=== PATIENT | female | born 1950 | race Caucasian/White ===

== ENCOUNTER → 2016-05-11 | Outpatient (CLI) | payer OTHER ==
[~2016-05-11] MED LIST: ALBU1NEB10 INH; ALBUAER19 INH; ATV/1 PO; FLUT230A INH; FOLI1TAB7 PO; METH2.5T PO; METO1TAB31 PO; MONT1TAB3 PO; MULT-884 PO; PTDOPS OPB; VGFVS/24 PV; [UNRECOGNIZED DRUG - CODE] NAE
--- NOTE | 2016-05-11 14:09 | MAMMOGRAPHY REPORT ---
UNILATERAL RIGHT DIGITAL DIAGNOSTIC MAMMOGRAM TOMOSYNTHESIS AND TARGETED RIGHT ULTRASOUND: 05/11/2016 CLINICAL HISTORY: Callback from screening mammogram for right breast asymmetry. When talking with t latrell patient, she reports that she fell and hit the right breast a few weeks ago, and has a palpable l ump in the region. TECHNIQUE: Breast tomosynthesis in addition to standard 2D mammography was performed. Right CC and MLO 2-D and tomosynthesis spot compression views were obtained. COMPARISON: Comparison is made to exams dated: 05/02/2016 mammogram, 04/23/2014 mammogram, 04/29/2015 m ammogram, 03/04/2013 mammogram, 03/01/2012 mammogram, and 03/14/2011 mammogram - [facility]. BREAST COMPOSITION: There are scattered areas of fibroglandular density in the right breast. FINDINGS: Spot compression views of the right breast demonstrate multiple round circumscribed fat de nsity masses in association with an asymmetry in the right 12:00 to 1:00 breast. The fat density ma sses are consistent with benign oil cysts related to fat necrosis. Targeted ultrasound was performed of the right 12 to 1:00 breast in the region of the mammographic f indings. The patient also reports that she has a palpable lump in this region. On clinical exam, b ruising is noted of the breast in this region. On ultrasound, there are multiple circumscribed roun d/oval anechoic masses in association with areas of ill-defined hyperechoic tissue. This has the so nographic appearance of fat necrosis, and corresponds with the mammographic findings. The patient r eports a fall in which she injured her right breast a few weeks ago. Given the clinical history and given the imaging findings, findings are benign and compatible with fat necrosis. IMPRESSION: ACR BI-RADS CATEGORY 2: BENIGN, TARGETED ULTRASOUND ACR BI-RADS CATEGORY 2: BENIGN Findings compatible with fat necrosis with oil cysts in the right 1:00 breast, which corresponds wit h the palpable lump and accounts for the mammographic asymmetry. This is likely secondary to a rece nt fall in which the patient injured her right breast. There is no mammographic or targeted sonographic evidence of malignancy. Recommend clinical follow- up for the palpable lump, and recommend routine bilateral screening mammograms in one year. The [facility] ient has been verbally notified of the results. Approximately 10% of breast cancers are not detected with mammography. A negative mammographic repor t should not delay biopsy if a clinically suggestive mass is present. Marie Avery M.D. ah/:05/11/2016 13:35:58 Flight Readiness Technician: [place] ALFARO)(Nayely), [facility] letter sent: Normal 1/2 BI-RADS Code: ACR BI-RADS Category 2: Benign Ultrasound BI-RADS: ACR BI-RADS Category 2: Benign
== END | disposition home or self-care (01) ==
LOC: C.MAMM 12:47
PROVIDERS: ATTEND Family Medicine
DX: N64.89 Other specified disorders of breast (principal); N60.01 Solitary cyst of right breast

== ENCOUNTER → 2016-05-30 | Outpatient (CLI) | payer OTHER ==
[2016-05-30 17:28] LABS: BASO % 0.3 %; BASO ABS # 0.02 K/uL (0-0.2); COMPLETE YES; EOS % 1.7 %; HEMATOCRIT 41.3 % (37-47); IG% 0.3 %; LYMPH % 20.1 %; LYMPH ABS # 1.46 K/uL (1.2-3.4); MEAN CELL VOLUME 88.8 fL (80-100); MEAN CORPUSCULAR HEMOGLOBIN 29.7 pg (25-34); MEAN CORPUSCULAR HGB CONC 33.4 g/dl (32-36); MEAN PLATELET VOLUME 9.5 fL (7.4-10.4); MONO % 9.8 %; NEUT % 67.8 %; PLATELET COUNT 277 K/uL (130-400); RED BLOOD COUNT 4.65 M/uL (4.2-5.4); WHITE BLOOD COUNT 7.26 K/uL (4.8-10.8)
[2016-05-30 17:49] LABS: BLOOD UREA NITROGEN 14 mg/dl (7-18); BUN/CREATININE RATIO 15.1 (10-20); CALCIUM 9.1 mg/dl (8.5-10.1); CARBON DIOXIDE 29 mmol/L (21-32); CHLORIDE 105 mmol/L (98-107); CREATININE 0.94 mg/dl (0.60-1.20); GLUCOSE 96 mg/dl (70-99); POTASSIUM 4.3 mmol/L (3.5-5.1); SODIUM 143 mmol/L (136-145)
== END | disposition home or self-care (01) ==
LOC: C.LABBFT 12:33
PROVIDERS: ATTEND Nurse Practitioner
DX: R05 Cough (principal); Z11.59 Encounter for screening for other viral diseases

== ENCOUNTER → 2016-05-30 | Outpatient (CLI) | payer OTHER ==
--- NOTE | 2016-05-30 15:34 | DIAGNOSTIC IMAGING REPORT ---
CHEST 2 VIEWS ROUTINE HISTORY: COUGH COMPARISON: Chest 09/05/2014. FINDINGS: Cervical spinal fusion hardware is again noted. No pleural effusions. No pneumothorax. The heart is normal in size. A few linear densities at the left lung base persist and favor subsegmental atelectasis or scarring. No new focal lung consolidations to suggest pneumonia. IMPRESSION: No acute process. Electronically signed by: Jordy Spence M.D. 05/30/2016 3:32 PM Dictated Date/Time: 05/30/2016 3:30 PM
== END | disposition home or self-care (01) ==
LOC: C.RAD1850 14:55
PROVIDERS: ATTEND Nurse Practitioner
DX: R05 Cough (principal)

== ENCOUNTER → 2017-01-23 | Outpatient (CLI) | payer OTHER ==
--- NOTE | 2017-01-23 14:16 | MAMMOGRAPHY REPORT ---
UNILATERAL LEFT DIGITAL DIAGNOSTIC MAMMOGRAM TOMOSYNTHESIS WITH CAD AND TARGETED LEFT ULTRASOUND: 01/23/2017 CLINICAL HISTORY: 66-year-old woman presents after her physician palpated a lump in the 12:00 left br east, 1 cm from the nipple. The patient is also reporting focal pain in the 2:00 axis of the left br east, 7 cm from the nipple. TECHNIQUE: Left breast tomosynthesis in addition to standard 2D mammography was performed. Current st udy was also evaluated with a Computer Aided Detection (CAD) system. COMPARISON: Comparison is made to exams dated: 05/02/2016 mammogram, 04/29/2015 mammogram, 04/23/2014 ma mmogram, 03/04/2013 mammogram, 03/01/2012 mammogram, and 03/09/2010 mammogram - [facility]. BREAST COMPOSITION: The tissue of the left breast is almost entirely fatty. FINDINGS: A triangular palpable marker was placed on the skin of the 2:00 left breast, denoting the a kiki of pain pointed out by the patient. Based on physician order, a lump was palpated in the 12:00 l eft breast, 1 cm from the areola. There is a stable 6 mm intramammary lymph node in the upper outer posterior left breast, that is unchanged in size and appearance dating back to at least 03/05/2009, t herefore likely benign. No other new suspicious mass, focal area of architectural distortion, asymme try or microcalcifications are identified in the left breast. Targeted ultrasound was performed in the area of pain pointed out by the patient, within the 2:00 lef t breast, 7 cm from the nipple, and also in the area of lump described by the patient's provider, wit hin the 12:00 axis, 1 cm from the areola. In the area of pain in the 2:00 axis, sonographically norm al tissue is seen without a discrete solid or cystic mass. Likewise, in the 12:00 axis, sonographica lly normal tissue is seen without a suspicious solid or cystic mass. IMPRESSION: ACR BI-RADS CATEGORY 2: BENIGN, TARGETED ULTRASOUND ACR BI-RADS CATEGORY 2: BENIGN 1. There is no suspicious mammographic or targeted sonographic mass or other abnormality in the 2:00 left breast in an area of pain, or within the 12:00 left breast in an area of lump felt by the patie nt's provider. Therefore, clinical follow-up is recommended, as biopsy of a clinically suspicious ma ss should not be precluded by negative imaging. 2. Overall, stable mammographic appearance of the left breast. The patient is due for annual bilate ral screening mammography in April 2017. These results and recommendations were discussed with the patient at the time of the exam. Approximately 10% of breast cancers are not detected with mammography. A negative mammographic report should not delay biopsy if a clinically suggestive mass is present. Ashley Marroquin M.D. ay/:01/23/2017 12:36:02 Soil Scientist: [place] ALFARO)(Nayely), [facility] letter sent: Normal 1/2 BI-RADS Code: ACR BI-RADS Category 2: Benign Ultrasound BI-RADS: ACR BI-RADS Category 2: Benign
== END | disposition home or self-care (01) ==
LOC: C.MAMM 10:40
PROVIDERS: ATTEND Physician Assistant
DX: N63.20 Unspecified lump in the left breast, unspecified quadrant (principal); R92.2 Inconclusive mammogram

== ENCOUNTER → 2017-05-04 | Outpatient (CLI) | payer OTHER | END | disposition home or self-care (01) | LOC: C.MAMM 08:39 | DX: Z12.31 Encounter for screening mammogram for malignant neoplasm of breast (principal) ==

== ENCOUNTER 2021-12-05 21:11 | Inpatient (IN) ==
[2021-12-05] MEDS ORDERED: SODIUM CHLORIDE 0.9% 500 ML IV STA (21:17)
[2021-12-05 22:02] LABS: Basophils # (auto) 0.03 K/uL (0-0.2); Basophils % (auto) 0.3 %; Eosinophils # (auto) 0.07 K/uL (0-0.50); Eosinophils % (auto) 0.7 %; Hemoglobin 10.8 g/dl (12.0-16.0); Immature Granulocytes # (auto) 0.06 K/uL (0.00-0.02); Immature Granulocytes % (auto) 0.6 %; Lymphocytes # (auto) 0.93 K/uL (1.2-3.4); Lymphocytes % (auto) 9.4 %; Mean Corpuscular Hemoglobin 28.2 pg (25.0-34.0); Mean Corpuscular Hgb Conc 31.8 g/dL (32.0-36.0); Mean Corpuscular Volume 88.8 fL (80.0-100.0); Mean Platelet Volume 8.4 fL (9.4-12.3); Monocytes # (auto) 0.91 K/uL (0.24-0.82); Monocytes % (auto) 9.2 %; Neutrophils # (auto) 7.85 K/uL (1.4-6.5); Neutrophils % (auto) 79.8 %; Platelet Count 335 K/uL (130-400); RDW Coefficient of Variation 12.9 % (11.5-14.5); RDW Standard Deviation 41.6 fL (36.4-46.3); Red Blood Count 3.83 M/uL (3.93-5.22); White Blood Count 9.85 K/ul (4.8-10.8)
[2021-12-05 22:22] LABS: Albumin Level 3.9 gm/dl (3.4-5.0); BUN Creatinine Ratio 11.6 (10-20); Bilirubin,Total 0.4 mg/dl (0.2-1.0); Calcium 8.8 mg/dl (8.5-10.1); Creatinine Clr Calc Pharmacy 20.3 ml/min; Est GFR (African American) 20.1 ml/min; Est GFR (Non-African American) 17.3 ml/min; Potassium 4.3 mmol/L (3.5-5.1); Total Protein 7.9 gm/dl (6.0-8.3)
[2021-12-05] MEDS ORDERED: ONDANSETRON INJ 2 MG/ML 2 ML VIAL IV STA (23:03)
[2021-12-05] MEDS ORDERED: MoRPHine SULFATE 4 MG/ML 1 ML CARP\\VIAL IV STA (23:03)
[2021-12-05] MEDS ORDERED: SODIUM CHLORIDE 0.9% 1000ML 1,000 ML IV ONE (23:03)
--- NOTE | 2021-12-05 23:04 | Emergency Department Note ---
Impression & Plan Kidney stone DC ED Provider Note HPI: The patient is a 71-year-old female who presents emergency department chief complaint of right flank pain and nausea that is been ongoing since earlier today. Patient states that she also has recently had a urinary tract infection for which she completed 2 courses of antibiotics. Patient does have a history of an acquired solitary kidney, on arrival here to the ED the patient is mildly hypertensive but otherwise hemodynamically stable, she is saturating well on room air on arrival, she is afebrile. Patient states she did have 1 episode of vomiting today, she denies any diarrhea. Patient denies any chest pain or shortness of breath. ROS: -: Right flank pain *10 point review systems was conducted and is otherwise negative unless stated above *Outpatient medications and allergy history reviewed PE: General: Alert, NAD HEENT: Normocephalic, atraumatic Eyes: Extraocular eye movement is intact, no scleral erythema Pulmonary: Clear to auscultation bilaterally, no wheezing Cardio: Regular rate and rhythm GI: Abdomen is soft, nontender : No suprapubic tenderness, there is right flank tenderness to palpation MSK: No evidence of trauma or malformation of the extremities, no edema Skin: No evidence of rash Neuro: Alert, no focal deficits 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 Minimal bilateral lower lobe atelectasis. Normal cardiac size. Diffuse fatty liver. Unremarkable gallbladder and biliary system. Gross, spleen and bilateral adrenal glands. Mild hiatal hernia otherwise unremarkable stomach. Status post left nephrectomy. Severe right-sided hydronephrosis due to a large stone at the right UP junction measuring 18.4 mm. Right perinephric stranding. Mild atherosclerotic disease of aorta with no aneurysm. Moderate fecal debris within the colon. Nonvisualized appendix. No inflammation to suggest appendicitis. No bowel obstruction. Decompressed urinary bladder. Anteverted uterus. Multilevel degenerative disease of the spine with multilevel vacuum phenomenon. Radiologist: Shae Salgado MD Medical Decision Making: Patient presented to the emergency department chief complaint of right flank tenderness and right-sided abdominal pain, CT imaging of the abdomen pelvis shows evidence of severe right-sided hydronephrosis secondary to a large obstructing kidney stone at the right UP junction measuring 18 mm. There is ri ght perinephric stranding as well. Patient has a creatinine elevation to 2.68, she was unable to provide a urine sample that urinalysis could be run off of the urine culture was able to be sent. Given that the patient has a solitary kidney on the right side, she will require admission and likely stenting. I discussed this with on-call urology, Dr. Barragan, who recommended treating prophylactically with ceftriaxone, blood cultures were also obtained prior to this. Dr. Barragan will take the patient for urologic intervention and likely stenting in the morning given her hemodynamic stability. On my reassessment the patient remains hemodynamically stable, she is not tachycardic, she is afebrile, she states her pain is improved following morphine. She remained otherwise hemodynamically stable and well-appearing on my reassessment and she was admitted in stable condition to the hospitalist service following my discussion with the on-call hospitalist, Dr. Veliz. Patient was admitted in stable condition for further care and urology consultation. Diagnosis: 1. Kidney stone, right-sided, with hydronephrosis 2. Acute kidney injury 3. Acute abdominal pain 4. Nausea Disposition: Admission David Tejeda DO Emergency Medicine Past Med/Surg History Medical History Right knee DJD Social History Smoking Status: Never smoker Feels Safe at Home: Yes Allergies Allergies Allergy/AdvReac Type Severity Reaction Status Date / Time No Known Allergies Allergy Unknown Verified 04/15/15 09:59 Home Meds Home Medications Medication Instructions Recorded Confirmed ALBUTEROL SULF (Albuterol Sulfate 3 ml inhalation Q4 PRN Wheezing ##0 09/05/14 0.083% For Inh) Albuterol Inhaler (VENTOLIN 2 puff inhalation Q4 PRN 09/05/14 INHALER) cough,whz,sob #5 Inhalers Estradiol (Vagifem) 10 mg vaginal WK ##0 09/05/14 FLUTICASONE-SALMETEROL 230/21 MCG 2 puff inhalation BID PRN unk ##0 09/05/14 (ADVAIR HFA 230/21 MCG) FOLIC ACID (FOLVITE) 1 mg PO DAILY #0 tabs 09/05/14 LORAZEPAM (ATIVAN) 1 mg PO HS PRN Sleep #0 tabs 09/05/14 METOPROLOL SUCCINATE (TOPROL XL) 12.5 mg PO HS #30 tabs 09/05/14 MONTELUKAST SODIUM (SINGULAIR) 10 mg PO HS #0 tabs 09/05/14 Methotrexate 15 mg PO WK #0 tabs 09/05/14 Multiple Vitamin (Multi Vitamin 1 tab PO DAILY ##0 09/05/14 Daily) OLOPATADINE HYDROCHLORIDE (PATADAY) 1 drp OPB DAILY PRN ALLERGIC 09/05/14 REACTION ##0 SALINE (SM NASAL SPRAY SALINE) 1 dose VLADISLAV DAILYBB ##0 09/05/14 Previous Rx's Medication Instructions Recorded methylprednisolone 4 mg tablets in 4 mg PO UD #1 packet 03/08/21 a dose pack Results & Data (ED) Vital Signs Vital Signs - 24 hr 12/05/21 21:15 12/05/21 22:45 12/06/21 00:31 Temperature 36.5 C Temperature Source Temporal Artery Scan Pulse Rate 66 Pulse Rate [Right Finger] 66 Pulse Strength [Right Finger] Normal Respiratory Rate 16 16 18 Respiratory Effort / Characteristics Non-Labored Spontaneous Non-Labored Non-Labored Spontaneous Respiratory Depth Normal Normal Normal Respiratory Pattern Regular Blood Pressure 127/70 Blood Pressure [Right Arm] 159/73 H 119/51 L Blood Pressure Mean 89 Blood Pressure Mean [Right Arm] 101 73 Blood Pressure Position [Right Arm] Lying Lying Pulse Oximetry 96 95 93 Oxygen Delivery Method Room Air Room Air Room Air Sepsis Recent Fever Within 48 Hours No Sepsis New/Unexplained Change in Mental Status No Sepsis Action Taken by Nursing No Action Required Laboratory Data Result diagrams: 12/05/21 21:51 12/05/21 21:51 Lab Results 12/05/21 12/05/21 12/05/21 Range/Units 21:51 21:51 Unknown WBC 9.85 (4.8-10.8) K/ul RBC 3.83 L (3.93-5.22) M/uL Hgb 10.8 L (12.0-16.0) g/dl Hct 34.0 L (34.1-44.9) % MCV 88.8 (80.0-100.0) fL MCH 28.2 (25.0-34.0) pg MCHC 31.8 L (32.0-36.0) g/dL RDW Std Deviation 41.6 (36.4-46.3) fL RDW Coeff of [place] 12.9 (11.5-14.5) % Plt Count 335 (130-400) K/uL MPV 8.4 L (9.4-12.3) fL Immature Gran % (Auto) 0.6 % Neut % (Auto) 79.8 % Lymph % (Auto) 9.4 % [place] % (Auto) 9.2 % Eos % (Auto) 0.7 % Baso % (Auto) 0.3 % Neut # (Auto) 7.85 H (1.4-6.5) K/uL Lymph # (Auto) 0.93 L (1.2-3.4) K/uL [place] # (Auto) 0.91 H (0.24-0.82) K/uL Eos # (Auto) 0.07 (0-0.50) K/uL Baso # (Auto) 0.03 (0-0.2) K/uL Immature Gran # (Auto) 0.06 H (0.00-0.02) K/uL Sodium 134 L (136-145) mmol/L Potassium 4.3 (3.5-5.1) mmol/L Chloride 102 (98-107) mmol/L Carbon Dioxide 23 (21-32) mmol/L Anion Gap 9 (3-11) BUN 31 H (6-23) mg/dl Creatinine 2.68 H (0.6-1.2) mg/dl Est Cr Clr Drug Dosing 20.3 ml/min Est GFR ( Amer) 20.1 ml/min Est GFR (Non-Af Amer) 17.3 ml/min BUN/Creatinine Ratio 11.6 (10-20) Glucose 126 H (70-99(Fasting)) mg/dl Calcium 8.8 (8.5-10.1) mg/dl Total Bilirubin 0.4 (0.2-1.0) mg/dl AST 21 (13-39) U/L ALT 25 (7-52) U/L Alkaline Phosphatase 80 (34-104) U/L Total Protein 7.9 (6.0-8.3) gm/dl Albumin 3.9 (3.4-5.0) gm/dl Globulin 4.0 (2.5-4.0) gm/dl Albumin/Globulin Ratio 1.0 (0.9-2) Urine Color Cancelled Urine Appearance Cancelled Urine pH Cancelled Ur Specific [place] Cancelled Urine Protein Cancelled Urine Glucose (UA) Cancelled Urine Ketones Cancelled Urine Blood Cancelled Urine Nitrite Cancelled Urine Bilirubin Cancelled Urine Urobilinogen Cancelled Ur Leukocyte Esterase Cancelled Urine WBC (Auto) Cancelled Urine RBC (Auto) Cancelled U Hyaline Cast (Auto) Cancelled U Epithel Cells (Auto) Cancelled Urine Bacteria (Auto) Cancelled Ur Renal Epithelial Cell Cancelled Urine Crystals Cancelled Calcium Oxalate Crystal Cancelled Uric Acid Crystals Cancelled Triple Phos Crystals Cancelled Other Crystals Cancelled Amorphous Sediment Cancelled Granular Casts Cancelled Waxy Casts Cancelled RBC Casts Cancelled WBC Casts Cancelled Other Casts Cancelled Urine Mucus Cancelled Urine Other Cancelled Urine Trichomonas Cancelled Urine Yeast Cancelled Urine Sperm Cancelled Ur Oval Fat Bodies Cancelled SARS-CoV-2, RNA, NAAT (NEGATIVE) 12/06/21 Range/Units 01:00 WBC (4.8-10.8) K/ul RBC (3.93-5.22) M/uL Hgb (12.0-16.0) g/dl Hct (34.1-44.9) % MCV (80.0-100.0) fL MCH (25.0-34.0) pg MCHC (32.0-36.0) g/dL RDW Std Deviation (36.4-46.3) fL RDW Coeff of [place] (11.5-14.5) % Plt Count (130-400) K/uL MPV (9.4-12.3) fL Immature Gran % (Auto) % Neut % (Auto) % Lymph % (Auto) % [place] % (Auto) % Eos % (Auto) % Baso % (Auto) % Neut # (Auto) (1.4-6.5) K/uL Lymph # (Auto) (1.2-3.4) K/uL [place] # (Auto) (0.24-0.82) K/uL Eos # (Auto) (0-0.50) K/uL Baso # (Auto) (0-0.2) K/uL Immature Gran # (Auto) (0.00-0.02) K/uL Sodium (136-145) mmol/L Potassium (3.5-5.1) mmol/L Chloride (98-107) mmol/L Carbon Dioxide (21-32) mmol/L Anion Gap (3-11) BUN (6-23) mg/dl Creatinine (0.6-1.2) mg/dl Est Cr Clr Drug Dosing ml/min Est GFR ( Amer) ml/min Est GFR (Non-Af Amer) ml/min BUN/Creatinine Ratio (10-20) Glucose (70-99(Fasting)) mg/dl Calcium (8.5-10.1) mg/dl Total Bilirubin (0.2-1.0) mg/dl AST (13-39) U/L ALT (7-52) U/L Alkaline Phosphatase (34-104) U/L Total Protein (6.0-8.3) gm/dl Albumin (3.4-5.0) gm/dl Globulin (2.5-4.0) gm/dl Albumin/Globulin Ratio (0.9-2) Urine Color Urine Appearance Urine pH Ur Specific [place] Urine Protein Urine Glucose (UA) Urine Ketones Urine Blood Urine Nitrite Urine Bilirubin Urine Urobilinogen Ur Leukocyte Esterase Urine WBC (Auto) Urine RBC (Auto) U Hyaline Cast (Auto) U Epithel Cells (Auto) Urine Bacteria (Auto) Ur Renal Epithelial Cell Urine Crystals Calcium Oxalate Crystal Uric Acid Crystals Triple Phos Crystals Other Crystals Amorphous Sediment Granular Casts Waxy Casts RBC Casts WBC Casts Other Casts Urine Mucus Urine Other Urine Trichomonas Urine Yeast Urine Sperm Ur Oval Fat Bodies SARS-CoV-2, RNA, NAAT NEGATIVE (NEGATIVE) Administered Medications Discontinued Medications Sodium Chloride (Nss) 500 mls @ 999 mls/hr IV .Q31M STA Stop: 12/05/21 21:47 Last Infusion: 12/05/21 23:22 Dose: 0 mls/hr Documented By: Admin: 12/05/21 22:43 Dose: 999 mls/hr Documented By: LINSEY Sodium Chloride (Nss 1000ml) 1,000 mls @ 999 mls/hr IV .Q1H1M ONE Stop: 12/06/21 00:03 Last Infusion: 12/06/21 00:28 Dose: 0 mls/hr Documented By: Admin: 12/05/21 23:16 Dose: 999 mls/hr Documented By: LINSEY Morphine Sulfate (Morphine Sulfate 4 Mg/Ml 1 Ml Carp\Vial) 4 mg IV NOW STA Stop: 12/05/21 23:04 Last Admin: 12/05/21 23:15 Dose: 4 mg Documented By: LINSEY Morphine Sulfate (Morphine Sulfate 4 Mg/Ml 1 Ml Carp\Vial) 4 mg IV NOW STA Stop: 12/06/21 00:31 Last Admin: 12/06/21 00:36 Dose: 4 mg Documented By: LINSEY Ondansetron HCl (Ondansetron Inj 2 Mg/Ml 2 Ml Vial) 4 mg IV NOW STA Stop: 12/05/21 23:04 Last Admin: 12/05/21 23:15 Dose: 4 mg Documented By: LINSEY Discharge Plan Visit Data Chief Complaint: Urinary Symptoms Stated Complaint: UTI ED Provider: David Tejeda Discharge Problem: Kidney stone Patient Disposition: Admitted As Inpatient Forms Stand Alone Forms: [facility] Prescriptions Prescriptions: No Action ALBUTEROL SULF (Albuterol Sulfate 0.083% For Inh) 3 ML NEBULIZR-SOLN 3 ml Inhalation Q4 PRN (Reason: Wheezing) Qty: 0 Albuterol Inhaler (VENTOLIN INHALER) AEROSOL,SOLN 2 puff Inhalation Q4 PRN (Reason: cough,whz,sob) Qty: 5 Estradiol (Vagifem) 10 MCG tablet 10 mg Vaginal WK Qty: 0 FLUTICASONE-SALMETEROL 230/21 MCG (ADVAIR HFA 230/21 MCG) 1 AER AER 2 puff Inhalation BID PRN (Reason: unk) Qty: 0 FOLIC ACID (FOLVITE) 1 MG tablet 1 mg PO DAILY Qty: 0 LORAZEPAM (ATIVAN) 1 MG tablet 1 mg PO HS PRN (Reason: Sleep) Qty: 0 METOPROLOL SUCCINATE (TOPROL XL) 25 MG tablet 12.5 mg PO HS Qty: 30 MONTELUKAST SODIUM (SINGULAIR) 10 MG tablet 10 mg PO HS Qty: 0 Methotrexate 2.5 MG tablet 15 mg PO WK Qty: 0 Multiple Vitamin (Multi Vitamin Daily) 1 TAB tablet 1 tab PO DAILY Qty: 0 OLOPATADINE HYDROCHLORIDE (PATADAY) 37 DROPS/2.5 ML solution 1 drp OPB DAILY PRN (Reason: ALLERGIC REACTION) Qty: 0 SALINE (SM NASAL SPRAY SALINE) 0.65 % SPR 1 dose VLADISLAV DAILYBB Qty: 0 methylprednisolone 4 mg tablets,dose pack 4 mg PO UD Qty: 1 0RF Rx Instructions: Use as directed Referrals Referrals: Alex Ansari MD [Primary Care Provider] -
[2021-12-06] MEDS ORDERED: MoRPHine SULFATE 4 MG/ML 1 ML CARP\\VIAL IV STA (00:30)
[2021-12-06] MEDS ORDERED: cefTRIAXone SODIUM 1,000 MG/50 ML BAG IV STA (01:06)
[2021-12-06] MEDS ORDERED: ALBUT/IPRATROP 3MG/0.5MG NEB 3 ML VIAL NEB PRN (04:32)
[2021-12-06] MEDS ORDERED: POLYETHYLENE (MIRALAX) 17 GM PACK PO PRN (04:32)
[2021-12-06] MEDS ORDERED: ALPRAZolam 0.25 MG TABLET PO PRN (04:32)
[2021-12-06] MEDS ORDERED: ONDANSETRON INJ 2 MG/ML 2 ML VIAL IV PRN ×2 (04:32→11:43)
[2021-12-06] MEDS ORDERED: ACETAMINOPHEN 325 MG TAB PO PRN (04:32)
[2021-12-06] MEDS ORDERED: ALBUTEROL HFA 8 GM INHALER INH PRN (04:38)
[2021-12-06] MEDS ORDERED: SODIUM CHLORIDE 0.65% NA SOLN 45 ML (OCEAN) PRN (04:39)
[2021-12-06] MEDS: HYDROmorphone INJ 0.5 MG/0.5 ML SYR IV PRN ×4 (05:34→22:40)
[2021-12-06] MEDS: SODIUM CHLORIDE 0.9% 1000ML 1,000 ML IV SCH ×3 (06:31→21:02)
[2021-12-06 07:21] LABS: Basophils # (auto) 0.03 K/uL (0-0.2); Basophils % (auto) 0.3 %; Eosinophils # (auto) 0.03 K/uL (0-0.50); Eosinophils % (auto) 0.3 %; Hematocrit (blood only) 32.5 % (34.1-44.9); Immature Granulocytes # (auto) 0.04 K/uL (0.00-0.02); Immature Granulocytes % (auto) 0.4 %; Lymphocytes # (auto) 1.22 K/uL (1.2-3.4); Mean Corpuscular Hemoglobin 27.8 pg (25.0-34.0); Mean Corpuscular Hgb Conc 30.8 g/dL (32.0-36.0); Mean Corpuscular Volume 90.3 fL (80.0-100.0); Mean Platelet Volume 8.4 fL (9.4-12.3); Monocytes # (auto) 1.33 K/uL (0.24-0.82); Neutrophils # (auto) 8.47 K/uL (1.4-6.5); Platelet Count 283 K/uL (130-400); RDW Coefficient of Variation 13.1 % (11.5-14.5); RDW Standard Deviation 43.5 fL (36.4-46.3); White Blood Count 11.12 K/ul (4.8-10.8)
[2021-12-06 07:39] LABS: BUN Creatinine Ratio 10.1 (10-20); Calcium 7.8 mg/dl (8.5-10.1); Creatinine Clr Calc Pharmacy 16.1 ml/min; Est GFR (African American) 15.2 ml/min; Est GFR (Non-African American) 13.1 ml/min; Magnesium 1.8 mg/dl (1.7-2.4); Potassium 4.6 mmol/L (3.5-5.1)
[2021-12-06 08:24] LABS: Estimated Average Glucose 131 mg/dl; Hemoglobin A1C 6.2 % (4.5-5.6)
--- NOTE | 2021-12-06 08:27 | History and Physical Report ---
DATE OF ADMISSION: 12/06/2021. CHIEF COMPLAINT: Right renal colic. HISTORY OF PRESENT ILLNESS: This is a 71-year-old female with past medical history significant for prediabetes, allergic rhinitis, mild persistent asthma without complication, sleep apnea, nocturnal hypoxemia, GERD, left nephrectomy because of pyelonephritis at age 21, chronic kidney disease stage III, osteoarthrosis, restless legs syndrome, rheumatoid arthritis of multiple sites, history of ITP, history of depression, presents with ongoing right flank pain for the last 3 weeks. She had 2 courses of antibiotics, first course of Bactrim, but is not getting better and today her pain got severe, and while ambulating, she felt somewhat lightheaded and nauseous. She is having burning micturition. In ER found to have right UP junction kidney stone. No blurred visions, no earache, no runny nose, no sore throat, no cough, no chest pain, no shortness of breath. Normal bowel movements. Resting comfortably, hemodynamically stable. ALLERGIES: No known drug allergies. PAST MEDICAL HISTORY: As mentioned above. PAST SURGICAL HISTORY: Abdominal wall subcutaneous tumor removal in 2016, colonoscopy with biopsies, EGD, hysteroscopy, ligation of oviducts, lumbar hemilaminectomy, gastric emptying study, bladder tuck, removal of left kidney for complication of pyelonephritis at age 21, cataract surgeries, repair of arm tendon and muscle. MEDICATIONS: The patient is on albuterol 2 puffs inhalation q.4 hours p.r.n., Xanax 0.25 mg p.o. at bedtime p.r.n., Flonase 1 spray intranasally daily, levocetirizine 5 mg p.o. p.m., nasal spray p.r.n., omeprazole 20 mg p.o. daily, Systane 1 drop ophthalmic daily, Rinvoq 15 mg p.o. daily, Zoloft 100 mg p.o. daily. FAMILY HISTORY: Significant for aunt has lymphoma, mother has colon cancer, sister has breast cancer, uncle has lung cancer, maternal grandmother has diabetes, brother has brain aneurysm. SOCIAL HISTORY: Single. No smoking. Alcohol, 4 beers a month. No drug use. REVIEW OF SYSTEMS: As per HPI. Rest of the review of systems is negative. PHYSICAL EXAMINATION: GENERAL: The patient is of moderate build, not in acute distress. VITAL SIGNS: Temperature 36.5, pulse 66, respiratory rate 18, blood pressure 119/51, oxygen 93% on room air. HEENT: Pupils equal, round and reactive to light. Oral mucosa moist. NECK: No JVD, no neck masses. CARDIOVASCULAR: S1 and S2 heard. Regular rate and rhythm. No murmur, no gallop. RESPIRATORY SYSTEM: Normal AP diameter. No accessory muscle use. No wheezing, no crackles. ABDOMEN: Soft, bowel sounds present. Right CVA tenderness present. Mild discomfort in the right flank region and right lower abdomen. Mild guarding, no distention. CENTRAL NERVOUS SYSTEM: Cranial nerves II-XII grossly intact, nonfocal. EXTREMITIES: No edema, no erythema. LABORATORY DATA: WBC 9.8, hemoglobin 10.8, hematocrit 34, platelets 335. Sodium 134, potassium 4.3, chloride 102, bicarbonate 23, BUN 31, creatinine 2.6, serum glucose 126, calcium 8.8, total bilirubin 0.4, AST 21, ALT 25, alkaline phosphatase 80. SARS-CoV-2 rapid test negative. IMAGING: CT of abdomen and pelvis without contrast, preliminary report shows minimal bilateral lower lobe atelectasis. Normal cardiac size. Diffuse fatty liver, status post left nephrectomy, severe right-sided hydronephrosis due to a large stone in the right UP junction measuring 1.8 cm, right perinephric stranding. ASSESSMENT AND PLAN: This 71-year-old female presents with right renal colic. 1. Right renal colic: The patient has solitary kidney because of left nephrectomy from complication of pyelonephritis at the age of 21. Never had kidney stones. CAT scan showing a 1.8 cm right ureteropelvic junction stone. Keep her n.p.o., IV fluids, IV antiemetics, IV pain medication p.r.n., IV Rocephin. Urology was notified by the Emergency Room. We will keep n.p.o. until seen by urology. Closely monitor in the medical floor. 2. Acute kidney injury on chronic kidney disease stage III: Baseline creatinine in July was 1.2, recently on 11/18/2021 was 1.6, currently creatinine of 2.6, probably from above. Avoid nephrotoxic agents. Follow the repeat laboratories. 3. History of rheumatoid arthritis: We will hold Rinvoq. 4. History of depression: Continue Zoloft. 5. Gastroesophageal reflux disease: Continue omeprazole. 6. History of asthma: Continue home inhalers. 7. Anxiety: She is on Xanax p.r.n. 8. Prediabetes: We will follow HbA1c levels. Currently n.p.o. 9. Deep venous thrombosis prophylaxis: Sequential compression devices. DISPOSITION: Closely monitor in the medical floor. PT, OT prior to discharge. Social service to help with discharge planning. Job ID: [id number] JOHN PAUL
--- NOTE | 2021-12-06 08:27 | CT Scan Report ---
CT SCAN OF THE ABDOMEN AND PELVIS WITHOUT IV CONTRAST CLINICAL HISTORY: Right flank pain COMPARISON STUDY: Abdominal CT dated 01/03/2015. TECHNIQUE: CT scan of the abdomen and pelvis is performed from the lung bases to the proximal femora. Images are reviewed in the axial, sagittal, and coronal planes. IV contrast was not administered for this examination. A dose lowering technique was utilized adhering to the principles of ALARA. CT DOSE: 1477.95 mGy.cm FINDINGS: Lung bases: The heart is top normal in size and without pericardial effusion. There are coronary luca ry calcifications. A 4 mm pulmonary nodule in the right middle lobe seen on image #18 has been presen t dating back to 2014, as have a 5 mm pleural-based nodule the right lung base on image #60 and a 4 m m pleural-based nodule in the right lower lobe on image #29. The lung bases are otherwise clear notin g bibasilar scarring/atelectasis. There is a small hiatal hernia. Liver: The unenhanced liver is top normal in size and demonstrates diffusely diminished attenuation i ndicating steatosis. Fatty sparing is seen adjacent to gallbladder fossa. There is no intrahepatic bi liary ductal dilatation. Gallbladder: Unremarkable. Spleen: Normal in size and attenuation. Pancreas: Unremarkable. Adrenal glands: Unremarkable. Kidneys: The left kidney is surgically absent. The right kidney is normal in size. There is moderate to severe right-sided hydronephrosis secondary to a 2 cm calculus at the right ureteropelvic junction . This is seen image #202. There is associated right-sided perinephric stranding and trace fluid. No additional right renal or ureteral calculi are seen. There is no evidence of contour deforming renal mass lesion. Abdominal vasculature: The abdominal aorta is normal in course and caliber noting mild atheroscleroti c calcification. Bowel: There is moderate colonic diverticulosis without CT evidence of acute diverticulitis. No bowel obstruction is identified. Mild to moderate fecal retention is noted in the right colon. The appendi x is well-visualized and normal. Peritoneum: There is no intraperitoneal free air or abdominal ascites. There is a fat-containing umbi lical hernia. Lymphadenopathy: None. Pelvic viscera: The bladder is decompressed and grossly unremarkable. The uterus and adnexa are nicky l as visualized. There are bilateral fat-containing groin hernias. Skeletal structures: The skeletal structures are osteopenic. There is mild to moderate lumbosacral sp ondylosis. No lytic or blastic lesions are seen. IMPRESSION: 1. There is a 2 cm obstructing calculus at the right ureteropelvic junction. This causes moderate to severe right-sided hydronephrosis. 2. No additional right renal calculi are identified. 3. The left kidney is surgically absent. 4. Colonic diverticulosis without CT evidence of acute diverticulitis. 5. Hepatic steatosis. 6. Additional findings as above. ACT 112: Negative or not required by law. Electronically signed by: Jhon Malhotra M.D. 12/06/2021 8:26 AM
--- NOTE | 2021-12-06 09:17 | Urology Consultation ---
Date of Consultation December 06, 2021 Assessment & Plan (1) Right ureteral calculus: (2) Hydronephrosis, right: (3) Solitary kidney, acquired: (4) Renal colic: Plan 71yo F who is mononephric admitted with a 2cm right UPJ stone causing moderate- severe hydronephrosis. -Afebrile and hemodynamically stable. -Labs reviewed - WBC 11.12, Creatinine 3.38 (2.68 yesterday). -Urine and blood cultures pending. -Given she is mononephric with NEGRO on CKD, anuric, and intractable right flank pain, will proceed to the OR today for cystoscopy, right retrograde pyelogram, right ureteral stent placement. -Risks and benefits to be reviewed with patient by Dr. Yousif. OR notified. COVID test negative. Covered with scheduled IV ceftriaxone. -Keep NPO. -Continue supportive care and pain management. -Urology will follow. Attending note: Independently assessed, examined, interviewed, and evaluated. Agree with above. Discussed options including different intervention. Patient is solitary kidney. Had previously had nephrectomy on left side in her 20s due to recurrent issues. Patient has a very large obstructing UPJ stone approximately 2 cm in size with considerable hydronephrosis. Patient has had minimal urine production and concern for development of anuria. Has significant NEGRO. Patient also having some mild hypotension. Reviewed extensively patient's labs and vitals. Patient's complicated medical and surgical history was reviewed and summarized above. All imaging has been reviewed interpreted by myself. Severe obstruction issues. Patient has chronic issues with lupus as well as other medical issues. Is on a number of medications. We will plan to continue to monitor closely. Patient will likely need to be observed postoperatively for return of renal function. May have significant diuresis afterwards. We will plan to continue to follow. Risks and benefits discussed at length for procedure. These include bleeding, infection, injury to surrounding tissues or organs, and risks associated with anesthesia. Patient states understanding and agrees to proceed. 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 Patient stated that she also has recently had a urinary tract infection for which she completed 2 courses of antibiotics. On arrival, she was afebrile, mildly hypertensive, but otherwise hemodynamically stable. White count was normal and creatinine wsa 2.68. A CT A/P was obtained and notable for a 2 cm obstructing calculus at the right UPJ causing moderate to severe right-sided hydronephrosis. CT abdomen pelvis IMPRESSION: 1. There is a 2 cm obstructing calculus at the right ureteropelvic junction. This causes moderate to severe right-sided hydronephrosis. 2. No additional right renal calculi are identified. 3. The left kidney is surgically absent. 4. Colonic diverticulosis without CT evidence of acute diverticulitis. 5. Hepatic steatosis. Patient examined at bedside in the ED. Awake, resting in bed on arrival. No acute distress. Still with right flank pain, managing with IV pain medication. Has been NPO. No fevers. Some nausea, no vomiting. States she has been unable to void. Per chart review, nursing bladder scan 200 mL this morning. Denies prior history of stones. Reports her daughter has had stones. States she is scheduled to see Nephrology in [place] mid-December. Allergies Allergy/AdvReac Type Severity Reaction Status Date / Time No Known Allergies Allergy Unknown Verified 04/15/15 09:59 Home Medications Medication Instructions Recorded Confirmed Type Nasal [place] (sodium chloride) 1 spray intranasal Q6 PRN Nasal 12/06/21 12/06/21 History Congestion Systane (propylene glycol) 1 drp OPB DAILY 12/06/21 12/06/21 History Zoloft 100 mg PO DAILY 12/06/21 12/06/21 History albuterol sulfate 2 puff inhalation Q4H PRN Cough 12/06/21 12/06/21 History alprazolam 0.25 mg tablet (Xanax) 0.25 mg PO HS PRN Anxiety 12/06/21 12/06/21 History fluticasone propionate 50 1 spray intranasal DAILY 12/06/21 12/06/21 History mcg/actuation nasal spray,suspension levocetirizine 5 mg tablet 5 mg PO PM 12/06/21 12/06/21 History omeprazole 20 mg capsule,delayed 20 mg PO DAILY 12/06/21 12/06/21 History release upadacitinib 15 mg tablet,extended 15 mg PO DAILY 12/06/21 12/06/21 History release 24 hr (Rinvoq) Patient History Medical History Right knee DJD Social History Smoking Status: Never smoker Second Hand Exposure: No; Do You Dip or Chew Tobacco: No; Tobacco Cessation Education Requested by Patient: No Hx Alcohol Use: No Hx Substance Use: No Preferred Language: Belarusian Communication Ability: Effective Statistician Required: No Beliefs That Will Affect Care: None Current Living Situation: Alone Other Information That Helps Us Care for You: No Feels Safe at Home: Yes Safety Concerns: Feels Safe At This Time Review of Systems Review of Systems: All systems reviewed & are unremarkable except as noted in HPI & below Physical Exam Constitutional: well developed and well nourished; no acute distress Eyes: PERRL, conjunctivae normal, anicteric sclerae ENMT: external ear and nose normal, oropharynx normal Neck: normal visual inspection Respiratory: normal respiratory effort and able to speak in complete sentences; no respiratory distress and no labored breathing Gastrointestinal (Abdomen): Inspection/Auscultation: abdomen normal to inspection Musculoskeletal: Head/Neck/Chest: normocephalic Skin: No visible rashes or lesions to exposed skin areas Neurologic: awake Psychiatric: Orientation: alert, oriented x 3 and cooperative Results & Data ([facility]) Vital Signs (Past 12 Hours) Vital Signs Temp Pulse Pulse Resp BP BP Pulse Ox 12/06/21 07:10 44 L 16 114/55 L 94 12/06/21 01:30 60 18 120/54 L 92 12/06/21 04:00 51 L 18 109/57 L 90 12/06/21 03:00 56 L 19 111/50 L 92 12/06/21 04:41 12/06/21 00:31 66 18 119/51 L 93 12/05/21 22:45 16 159/73 H 95 12/05/21 21:15 36.5 C 66 16 127/70 96 O2 Del Method 12/06/21 07:10 Room Air 12/06/21 01:30 Room Air 12/06/21 04:00 Room Air 12/06/21 03:00 Room Air 12/06/21 04:41 Room Air 12/06/21 00:31 Room Air 12/05/21 22:45 Room Air 12/05/21 21:15 Room Air PG Care Time/CCT Total # of Minutes Spent Total Time Spent with Patient: Total time spent is greater than 50% in coordination of care (as documented) at patient's floor/unit and/or counseling patient: Coding Level of Care Code 24539 Initial Inpt Care Lvl 2 Diagnoses Right ureteral calculus N20.1 Hydronephrosis, right N13.30 Solitary kidney, acquired Z90.5 Renal colic N23
--- NOTE | 2021-12-06 09:31 | Anesthesiology Consultation ---
Date of Service December 06, 2021 Assessment & Plan Chart Review Chart Review: Acceptable Risk for Surgery and Patient NOT seen in Pre Admission Testing History Surgery Operation Date: 12/06/21 12:40 Proposed Procedures p Cystoscopy Right Retrograde Pyelogram and Stent Placement - Joseph Waters MD Height/Weight Height: 5 ft 3 in Weight: 86 kg Allergies Allergy/AdvReac Type Severity Reaction Status Date / Time No Known Allergies Allergy Unknown Verified 04/15/15 09:59 Medications Home Medications Medication Instructions Recorded Confirmed Last Taken Nasal [place] (sodium chloride) 1 spray intranasal Q6 PRN Nasal 12/06/21 12/06/21 Unknown Congestion Systane (propylene glycol) 1 drp OPB DAILY 12/06/21 12/06/21 Unknown Zoloft 100 mg PO DAILY 12/06/21 12/06/21 Unknown albuterol sulfate 2 puff inhalation Q4H PRN Cough 12/06/21 12/06/21 Unknown alprazolam 0.25 mg tablet (Xanax) 0.25 mg PO HS PRN Anxiety 12/06/21 12/06/21 Unknown fluticasone propionate 50 1 spray intranasal DAILY 12/06/21 12/06/21 Unknown mcg/actuation nasal spray,suspension levocetirizine 5 mg tablet 5 mg PO PM 12/06/21 12/06/21 Unknown omeprazole 20 mg capsule,delayed 20 mg PO DAILY 12/06/21 12/06/21 Unknown release upadacitinib 15 mg tablet,extended 15 mg PO DAILY 12/06/21 12/06/21 Unknown release 24 hr (Rinvoq) Active Medications Generic Name Dose Route Start Last Admin Trade Name Freq PRN Reason Stop Dose Admin Hydromorphone HCl 0.5 mg 12/06/21 04:32 12/06/21 09:06 Hydromorphone Inj 0.5 Mg/0.5 Ml Syr IV 12/20/21 04:31 0.5 mg Q4H PRN Administration Pain Sodium Chloride 1,000 mls @ 125 mls/hr 12/06/21 04:32 12/06/21 06:31 Nss 1000ml IV 01/05/22 04:31 125 mls/hr .Q8H PAMELA Administration Past Medical History Medical History Right knee DJD Social History Smoking Status: Never smoker Do You Dip or Chew Tobacco: No Hx Alcohol Use: No Hx Substance Use: No Physical Exam Vital Signs Last Vital Signs Temp 37.0 C 12/06/21 09:11 Pulse 72 12/06/21 09:11 Resp 16 12/06/21 09:11 BP 115/51 L 12/06/21 09:11 Pulse Ox 96 12/06/21 09:11 O2 Del Method 12/06/21 09:11 O2 Flow Rate 2 12/06/21 09:11 Testing Laboratory Results 12/06/21 07:01 12/06/21 07:01 Hemoglobin A1c 6.2 % (4.5-5.6) H 12/06/21 07:01 Urine Color Cancelled 12/05/21 Unknown Urine Appearance Cancelled 12/05/21 Unknown Urine pH Cancelled 12/05/21 Unknown Ur Specific [place] Cancelled 12/05/21 Unknown Urine Protein Cancelled 12/05/21 Unknown Urine Glucose (UA) Cancelled 12/05/21 Unknown Urine Ketones Cancelled 12/05/21 Unknown Urine Nitrite Cancelled 12/05/21 Unknown Ur Leukocyte Esterase Cancelled 12/05/21 Unknown Urine WBC (Auto) Cancelled 12/05/21 Unknown Urine RBC (Auto) Cancelled 12/05/21 Unknown U Hyaline Cast (Auto) Cancelled 12/05/21 Unknown U Epithel Cells (Auto) Cancelled 12/05/21 Unknown Urine Bacteria (Auto) Cancelled 12/05/21 Unknown
[2021-12-06] MEDS: ARTIFICIAL TEARS OP SCH (10:01)
[2021-12-06] MEDS: PANTOprazole 40 MG TAB PO SCH (10:01)
[2021-12-06] MEDS: FLUTICASONE PROPIONATE NA SPR 16 GM BTL SCH (10:01)
[2021-12-06] MEDS: SERTRALINE HCL 100 MG TABLET PO SCH (10:03)
[2021-12-06] MEDS ORDERED: PROPOFOL IV EMULSION 10 MG/ML 20 ML VIAL IV ONE (11:11)
[2021-12-06] MEDS ORDERED: MIDAZOLAM HCL 1 MG/ML 2ML VIAL ONE (11:11)
[2021-12-06] MEDS ORDERED: fentaNYL citrate 100 MCG/2 ML VIAL ONE (11:12)
[2021-12-06] MEDS ORDERED: fentaNYL citrate 100 MCG/2 ML VIAL IV PRN (11:43)
[2021-12-06] MEDS ORDERED: HYDROmorphone INJ 2 MG/ML SYR/VIAL IV PRN (11:43)
[2021-12-06] MEDS ORDERED: ATROPINE SULFATE 0.1 MG/ML 10ML SYR IV PRN (11:43)
[2021-12-06] MEDS ORDERED: ePHEDrine sulfate 50 MG/ML AMP IV PRN (11:43)
[2021-12-06] MEDS ORDERED: ceFAZolin 2,000 MG/15 ML IV PUSH IV ONE (11:51)
[2021-12-06] MEDS ORDERED: ONDANSETRON INJ 2 MG/ML 2 ML VIAL ONE (12:14)
[2021-12-06] MEDS ORDERED: ePHEDrine sulfate 50 MG/ML AMP ONE (12:14)
--- NOTE | 2021-12-06 12:24 | Operative Report ---
PG Post Operative Report Pre & Post Diagnosis Obstructing Right UPJ Stone, Solitary Kidney, Anuria Same Operation Date: 12/06/21 12:40 <No data on this case meets the specified criteria> I identified the patient and participated in the time-out.: Yes Procedure Cystoscopy with right urine aspiration, retrograde pyelogram, and stent placement. Operation Date: 12/06/21 12:40 <No data on this case meets the specified criteria> Surgeon Nelson Yousif, II, DO Saddle Mechanic None Estimated Blood Loss 1 Findings Consistent with Post-Op Diagnosis Stent placed in good position. Severe obstruction by large UPJ stone on right. Specimens None Drains 6 Fr Multilength Right Anesthesia Type MAC Complications none Disposition Disposition: Recovery Room Indications Patient with obstruction. Risks and benefits discussed at length. Description of Procedure Patient was consented and brought back to the operating room. Patient was placed under anesthesia in the supine position and moved to the dorsal lithotomy position. Patient was prepped and draped in the regular sterile fashion. A time out was completed. A 30degree Cystoscope was placed into the bladder and the entire bladder was examined. The UO's were identified. The UO was cannulized with a catheter, urine was aspirated from the renal pelvis, and a retrograde pyelogram was completed. A wire was then placed. With the wire in place, a 6 Fr Double J stent was placed. It was confirmed with fluoroscopy. With the stent in place, the bladder was emptied. The scope was removed. An 16 fr Jimenez was placed with good drainage to allow for likely diuresis after obstruction of solitary kidney. The patient was cleaned, aroused from anesthesia, and transferred to the pacu in stable condition having tolerated the procedure well with no complications. I was present and participated in all aspects of the procedure. The patient will be monitored in the PACU until transferred. Plan to monitor overnight. Likely catheter out tomorrow morning. Maintain stent for approx 2-3 weeks and set up for stone treatment. I attest to the content of the Intraoperative Record and any orders documented therein. Any exceptions are noted below.
--- NOTE | 2021-12-06 12:49 | Anesthesiology Progress Note ---
Date of Service December 06, 2021 Anesthesia Post Procedure Vital Signs Vital Signs: Temp Pulse Pulse Resp BP BP Pulse Ox 12/06/21 11:37 36.8 C 90 18 117/59 L 95 12/06/21 09:11 37.0 C 72 16 115/51 L 96 12/06/21 07:10 44 L 16 114/55 L 94 12/06/21 01:30 60 18 120/54 L 92 12/06/21 04:00 51 L 18 109/57 L 90 12/06/21 03:00 56 L 19 111/50 L 92 12/06/21 04:41 12/06/21 00:31 66 18 119/51 L 93 12/05/21 22:45 16 159/73 H 95 12/05/21 21:15 36.5 C 66 16 127/70 96 O2 Del Method O2 Flow Rate 12/06/21 11:37 Room Air 12/06/21 09:11 Nasal Cannula 2 12/06/21 07:10 Room Air 12/06/21 01:30 Room Air 12/06/21 04:00 Room Air 12/06/21 03:00 Room Air 12/06/21 04:41 Room Air 12/06/21 00:31 Room Air 12/05/21 22:45 Room Air 12/05/21 21:15 Room Air Pain Intensity Abdomen: Pain Intensity: 7 Transfer of Care Handoff Completed per policy Notes Mental Status: alert / awake / arousable and participated in evaluation Patient Amnestic to Procedure: Yes Nausea / Vomiting: adequately controlled Pain: adequately controlled Airway Patency, RR, SpO2: stable & adequate BP & HR: stable & adequate Hydration State: stable & adequate Anesthetic Complications: no major complications apparent and Pt Satisfied with anesthetic care
[2021-12-06] MEDS ORDERED: DIATRIZOATE MEGLUMINE 30% 100ML VIAL INSTIL ONE (12:51)
--- NOTE | 2021-12-06 12:51 | Electrocardiogram Report ---
Test Reason : Blood Pressure : / mmHG Vent. Rate : 087 BPM Atrial Rate : 087 BPM P-R Int : 166 ms QRS Dur : 062 ms QT Int : 364 ms P-R-T Axes : 054 051 058 degrees QTc Int : 438 ms Sinus rhythm with frequent Premature ventricular complexes in a pattern of bigeminy Low voltage QRS Borderline ECG When compared with ECG of 05-SEP-2014 19:03, Premature ventricular complexes are now Present Confirmed by Jarod Sims ([id number]) on 12/06/2021 12:51:11 PM Referred By: REFERRED SELF Confirmed By:Jarod Sims
--- NOTE | 2021-12-06 13:46 | Fluoroscopy Report ---
INTRAOPERATIVE RADIOGRAPHS CLINICAL HISTORY: Right ureteral stent placement. Fluoroscopy time: 10 seconds. FINDINGS: 4 spot images of the right abdomen from a ureteral stent placement procedure are presented. The initial image shows a wire in the right ureter. On the second image this has been advanced to th e renal pelvis. Injected contrast shows hydronephrosis. A filling defect within the renal pelvis like ly corresponds to the known large UPJ stone. The final 2 images show the proximal and distal ends of a right ureteral stent in place. IMPRESSION: Intraoperative images from a right ureteral stent placement procedure as above. Electronically signed by: Jhon Malhotra M.D. 12/06/2021 1:44 PM
--- NOTE | 2021-12-06 15:29 | Hospitalist Progress Note ---
Date of Service December 06, 2021 Assessment & Plan (1) Renal colic: (2) Hydronephrosis, right: (3) Right ureteral calculus: (4) H/O unilateral nephrectomy: (5) Urinary tract infection: Plan Patient is a 71-year-old female with history of solitary right kidney ( Hx of left nephrectomy in her 20s), rheumatoid arthritis, depression, GERD presented to the ED with left-sided abdominal pain and decreased urinary frequency. She was found to have 2 cm ureteric stone in the ureteropelvic junction. She underwent cystoscopy with right urine aspiration, retropyelogram and stent placement on 12/06 by urology. 1) Right ureteric stone s/p Cystoscopy with stent placement on 12/06 2) Right sided hydronephrosis 3) Urinary tract infection 4) NEGRO, obstructive Presented with decreased urinary frequency and flank pain. Urinalysis tests WBC 1030, urine bacteria present CT abdomen2 cm obstructing calculus in right utero pelvic junction Creatinine up trended from 2.68 at admission to 3.38 WBC count 11 Plan; Continue ceftriaxone. We will follow-up on urine culture. -- Monitor output from Jimenez -- Continue IV hydration for now. Diet resumed after the procedure. - We will follow daily CBC and BMP. Chronic conditions: 3. History of rheumatoid arthritis: We will hold Rinvoq. 4. History of depression: Continue Zoloft. 5. Gastroesophageal reflux disease: Continue omeprazole. 6. History of asthma: Continue home inhalers. 7. Anxiety: She is on Xanax p.r.n. 8 Deep venous thrombosis prophylaxis: Sequential compression devices for now. will consider heparin if no further procedure. Admission and Anticipated Discharge Date Admission Date: December 06, 2021 Subjective Patient seen in the morning. She is comfortable; not in any acute distress. She continues to complain of mild right-sided abdominal pain. She says she has not passed urine since coming to the hospital Review of Systems Review of Systems: All systems reviewed & are unremarkable except as noted in Subjective Physical Exam Physical Exam: GENERAL: The patient is of moderate build, not in acute distress. HEENT: Pupils equal, round and reactive to light. Oral mucosa moist. NECK: No JVD, no neck masses. CARDIOVASCULAR: S1 and S2 heard. Regular rate and rhythm. No murmur, no gallop. RESPIRATORY SYSTEM: Normal AP diameter. No accessory muscle use. No wheezing, no crackles. ABDOMEN: Right CVA tenderness present. Tenderness present in Right lower abdomen. CENTRAL NERVOUS SYSTEM: Cranial nerves II-XII grossly intact, nonfocal. EXTREMITIES: No edema, no erythema. Results & Data Results & Data ([facility]) Vital Signs (Past 12 Hours) Vital Signs Temp Pulse Pulse Resp BP BP Pulse Ox 12/06/21 14:20 36.9 C 48 L 16 110/64 98 12/06/21 14:50 36.5 C 47 L 16 126/61 96 12/06/21 13:57 36.7 C 50 L 18 129/74 93 12/06/21 13:30 95 H 22 134/48 L 93 12/06/21 13:20 96 H 16 143/53 H 3 L 12/06/21 13:10 94 H 15 143/57 H 93 12/06/21 13:00 36.6 C 98 H 16 131/76 90 12/06/21 12:50 96 H 24 121/49 L 95 12/06/21 12:40 97 H 22 108/46 L 94 12/06/21 12:34 36.7 C 60 16 121/57 L 93 12/06/21 11:37 36.8 C 90 18 117/59 L 95 12/06/21 09:11 37.0 C 72 16 115/51 L 96 12/06/21 07:10 44 L 16 114/55 L 94 12/06/21 04:00 51 L 18 109/57 L 90 12/06/21 04:41 O2 Del Method O2 Flow Rate 12/06/21 14:20 2 12/06/21 14:50 Room Air 12/06/21 13:57 Nasal Cannula 2 12/06/21 13:30 Nasal Cannula 2 12/06/21 13:20 Nasal Cannula 2 12/06/21 13:10 Nasal Cannula 2 12/06/21 13:00 Room Air 12/06/21 12:50 Oxymask 4 12/06/21 12:40 Oxymask 6 12/06/21 12:34 Oxymask 6 12/06/21 11:37 Room Air 12/06/21 09:11 Nasal Cannula 2 12/06/21 07:10 Room Air 12/06/21 04:00 Room Air 12/06/21 04:41 Room Air Laboratory Results Abdomen/Pelvis CT 12/05/21 23:02 CT SCAN OF THE ABDOMEN AND PELVIS WITHOUT IV CONTRAST CLINICAL HISTORY: Right flank pain COMPARISON STUDY: Abdominal CT dated 01/03/2015. TECHNIQUE: CT scan of the abdomen and pelvis is performed from the lung bases to the proximal femora. Images are reviewed in the axial, sagittal, and coronal planes. IV contrast was not administered for this examination. A dose lowering technique was utilized adhering to the principles of ALARA. CT DOSE: 1477.95 mGy.cm FINDINGS: Lung bases: The heart is top normal in size and without pericardial effusion. There are coronary artery calcifications. A 4 mm pulmonary nodule in the right middle lobe seen on image #18 has been present dating back to 2014, as have a 5 mm pleural-based nodule the right lung base on image #60 and a 4 mm pleural- based nodule in the right lower lobe on image #29. The lung bases are otherwise clear noting bibasilar scarring/atelectasis. There is a small hiatal hernia. Liver: The unenhanced liver is top normal in size and demonstrates diffusely diminished attenuation indicating steatosis. Fatty sparing is seen adjacent to gallbladder fossa. There is no intrahepatic biliary ductal dilatation. Gallbladder: Unremarkable. Spleen: Normal in size and attenuation. Pancreas: Unremarkable. Adrenal glands: Unremarkable. Kidneys: The left kidney is surgically absent. The right kidney is normal in size. There is moderate to severe right-sided hydronephrosis secondary to a 2 cm calculus at the right ureteropelvic junction. This is seen image #202. There is associated right-sided perinephric stranding and trace fluid. No additional right renal or ureteral calculi are seen. There is no evidence of contour deforming renal mass lesion. Abdominal vasculature: The abdominal aorta is normal in course and caliber noting mild atherosclerotic calcification. Bowel: There is moderate colonic diverticulosis without CT evidence of acute diverticulitis. No bowel obstruction is identified. Mild to moderate fecal retention is noted in the right colon. The appendix is well-visualized and normal. Peritoneum: There is no intraperitoneal free air or abdominal ascites. There is a fat-containing umbilical hernia. Lymphadenopathy: None. Pelvic viscera: The bladder is decompressed and grossly unremarkable. The uterus and adnexa are normal as visualized. There are bilateral fat-containing groin hernias. Skeletal structures: The skeletal structures are osteopenic. There is mild to moderate lumbosacral spondylosis. No lytic or blastic lesions are seen. IMPRESSION: 1. There is a 2 cm obstructing calculus at the right ureteropelvic junction. This causes moderate to severe right-sided hydronephrosis. 2. No additional right renal calculi are identified. 3. The left kidney is surgically absent. 4. Colonic diverticulosis without CT evidence of acute diverticulitis. 5. Hepatic steatosis. 6. Additional findings as above. ACT 112: Negative or not required by law. Electronically signed by: Jhon Malhotra M.D. 12/06/2021 8:26 AM Retrograde Pyelogram 12/06/21 13:00 INTRAOPERATIVE RADIOGRAPHS CLINICAL HISTORY: Right ureteral stent placement. Fluoroscopy time: 10 seconds. FINDINGS: 4 spot images of the right abdomen from a ureteral stent placement procedure are presented. The initial image shows a wire in the right ureter. On the second image this has been advanced to the renal pelvis. Injected contrast shows hydronephrosis. A filling defect within the renal pelvis likely corresponds to the known large UPJ stone. The final 2 images show the proximal and distal ends of a right ureteral stent in place. IMPRESSION: Intraoperative images from a right ureteral stent placement procedure as above. Electronically signed by: Jhon Malhotra M.D. 12/06/2021 1:44 PM COVID-19 Results Results COVID-19 Adm Lab Results: RBC 3.60 M/uL (3.93-5.22) L 12/06/21 WBC 11.12 K/ul (4.8-10.8) H 12/06/21 Hgb 10.0 g/dl (12.0-16.0) L 12/06/21 Hct 32.5 % (34.1-44.9) L 12/06/21 Plt Count 283 K/uL (130-400) 12/06/21 Neutrophils (%) (Auto) 76.0 % 12/06/21 Lymphocytes (%) (Auto) 11.0 % 12/06/21 Monocytes # (Auto) 1.33 K/uL (0.24-0.82) H 12/06/21 Eosinophils # (Auto) 0.03 K/uL (0-0.50) 12/06/21 Immature Granulocyte % (Auto) 0.4 % 12/06/21 Neutrophils # (Auto) 8.47 K/uL (1.4-6.5) H 12/06/21 Lymphocytes # (Auto) 1.22 K/uL (1.2-3.4) 12/06/21 Monocytes # (Auto) 1.33 K/uL (0.24-0.82) H 12/06/21 Eosinophils # (Auto) 0.03 K/uL (0-0.50) 12/06/21 Basophils # (Auto) 0.03 K/uL (0-0.2) 12/06/21 Immature Granulocyte # (Auto) 0.04 K/uL (0.00-0.02) H 12/06 Na 135 mmol/L (136-145) L 12/06/21 K 4.6 mmol/L (3.5-5.1) 12/06/21 Cl 106 mmol/L (98-107) 12/06/21 CO2 22 mmol/L (21-32) 12/06/21 Anion Gap 7 (3-11) 12/06/21 BUN 34 mg/dl (6-23) H 12/06/21 Creatinine 3.38 mg/dl (0.6-1.2) H 12/06/21 BUN/Creatinine Ratio 10.1 (10-20) 12/06/21 Glucose Level 102 mg/dl (70-99(Fasting)) H 12/06/21 Ca 7.8 mg/dl (8.5-10.1) L 12/06/21 Total Bilirubin 0.4 mg/dl (0.2-1.0) 12/05/21 AST/SGOT 21 U/L (13-39) 12/05/21 ALT/SGPT 25 U/L (7-52) 12/05/21 Alkaline Phosphatase 80 U/L (34-104) 12/05/21 Total Protein 7.9 gm/dl (6.0-8.3) 12/05/21 Albumin 3.9 gm/dl (3.4-5.0) 12/05/21 Globulin 4.0 gm/dl (2.5-4.0) 12/05/21 Albumin/Globulin Ratio 1.0 (0.9-2) 12/05/21 SARS-CoV-2, RNA, NAAT NEGATIVE (NEGATIVE) 12/06/21 Urine Analysis / Culture Results Urinalysis: Urine Color ORANGE 09/05/14 Urine Appearance CLOUDY (CLEAR) 09/05/14 Urine pH 5.5 (4.5-7.5) 09/05/14 Ur Specific [place] 1.030 (1.000-1.030) 09/05/14 Urine Protein 2+ (NEG) 09/05/14 Urine Glucose (UA) NEG (NEG) 09/05/14 Urine Ketones 1+ (NEG) H 09/05/14 Urine Nitrite NEG (NEG) 09/05/14 Urine Bilirubin NEG (NEG) 09/05/14 Urine Urobilinogen NEG (NEG) 09/05/14 Ur Leukocyte Esterase POS (NEG) H 09/05/14 Urine Culture: Micro Urine Specimen 12/06/21
[2021-12-06] MEDS ORDERED: CETIRIZINE HCL 10 MG TABLET PO SCH (21:00)
[2021-12-07] MEDS ORDERED: cefTRIAXone SODIUM 2,000 MG in DEXTROSE 5% 50 ML IV SCH (02:00)
[2021-12-07] MEDS ORDERED: cefTRIAXone SODIUM 1,000 MG in DEXTROSE 5% 50 ML IV SCH (02:15)
[2021-12-07 02:17] LABS: Appearance Urine Cloudy (Clear); Bacteria Urine Automated Negative (Negative); Bilirubin Urine Negative (Negative); Blood Urine 2+ (Negative); Color Urine Yellow; Epithelial Cell Urine Auto >30 /lpf (0-5); Glucose Urine UA Negative (Negative); Ketones Urine Negative (Negative); Leukocyte Esterase Urine 2+ (Negative); Nitrite Urine Negative (Negative); Protein Urine Trace (Negative); RBC Urine Automated 0-4 /hpf (0-4); Specific Gravity Urine 1.005 (1.000-1.030); Urobilinogen Urine Negative (Negative); WBC Urine Automated >30 /hpf (0-5); pH Urine 5.5 (4.5-7.5)
[2021-12-07] MEDS: SODIUM CHLORIDE 0.9% 1000ML 1,000 ML IV SCH (04:13)
[2021-12-07] MEDS: HYDROmorphone INJ 0.5 MG/0.5 ML SYR IV PRN (04:18)
[2021-12-07 08:25] LABS: Hematocrit (blood only) 26.8 % (34.1-44.9); Hemoglobin 8.5 g/dl (12.0-16.0); Mean Corpuscular Hemoglobin 28.6 pg (25.0-34.0); Mean Corpuscular Hgb Conc 31.7 g/dL (32.0-36.0); Mean Corpuscular Volume 90.2 fL (80.0-100.0); Mean Platelet Volume 8.7 fL (9.4-12.3); Platelet Count 260 K/uL (130-400); RDW Coefficient of Variation 13.5 % (11.5-14.5); RDW Standard Deviation 44.9 fL (36.4-46.3); Red Blood Count 2.97 M/uL (3.93-5.22); White Blood Count 5.56 K/ul (4.8-10.8)
[2021-12-07 08:51] LABS: BUN Creatinine Ratio 12.6 (10-20); Calcium 7.7 mg/dl (8.5-10.1); Creatinine Clr Calc Pharmacy 23.7 ml/min; Est GFR (African American) 24.1 ml/min; Est GFR (Non-African American) 20.8 ml/min; Potassium 4.5 mmol/L (3.5-5.1)
[2021-12-07] MEDS: PANTOprazole 40 MG TAB PO SCH (08:59)
[2021-12-07] MEDS: SERTRALINE HCL 100 MG TABLET PO SCH (08:59)
[2021-12-07] MEDS: FLUTICASONE PROPIONATE NA SPR 16 GM BTL SCH (09:00)
[2021-12-07] MEDS: ARTIFICIAL TEARS OP SCH (09:01)
--- NOTE | 2021-12-07 11:49 | Urology Progress Note ---
Date of Service December 07, 2021 Assessment & Plan (1) Right ureteral calculus: (2) Hydronephrosis, right: (3) Solitary kidney, acquired: Plan 71yo F who is mononephric admitted with a 2cm right UPJ stone causing moderate- severe hydronephrosis. - POD #1 s/p Cystoscopy with right urine aspiration, retrograde pyelogram, and stent placement. - Subjectively feeling better, tolerating the stent with minimal bother. - Afebrile and hemodynamically stable at present. - Labs reviewed - WBC normal, Creatinine down to 2.30 (previously 3.38) - Continue to trend. - Urine culture prelim no growth, repeat pending; Urine culture from right kidney prelim no growth - Blood cultures preliminary no growth x24 hours. - Jimenez catheter intact, draining clear yellow urine. - Okay to remove Jimenez catheter and monitor for ability to void. - Will arrange outpatient follow-up with our service for definitive stone treatment. - Continue antibiotics and tailor as culture data becomes available. - Continue supportive care and prn pain management. - Urology will follow peripherally. Please contact us any further questions, concerns, or changes in patient status. Admission and Anticipated Discharge Date Admission Date: December 06, 2021 Supervising Physician Co-Signing Physician Notes Patient seen and examined Feeling very well except she has had a substantial improvement in her creatinine overnight Her urine is clear Plan for voiding trial now I think she is likely stable for discharge home and can follow-up as an outpatient with repeat creatinine Subjective Pt examined at bedside this afternoon. Awake, resting in bed on arrival. No acute distress. Reports feeling much better today. Tolerating the ureteral stent with minimal bother. Denies any significant pain. No fevers or chills. No nausea or vomiting. Jimenez catheter intact, draining clear yellow urine. Review of Systems Constitutional: as per Subjective / HPI Gastrointestinal: as per Subjective / HPI Genitourinary: as per Subjective / HPI Physical Exam Constitutional: no acute distress Respiratory: no respiratory distress and no labored breathing Gastrointestinal (Abdomen): Inspection/Auscultation: abdomen normal to insp ection Neurologic: awake Psychiatric: Orientation: alert and oriented x 3 Genitourinary: Jimenez catheter intact Results & Data ([facility]) Vital Signs (Past 12 Hours) Vital Signs Temp Pulse Resp BP Pulse Ox O2 Del Method 12/07/21 07:50 37.0 C 79 16 138/80 94 Room Air 12/07/21 04:50 36.5 C 12/07/21 04:06 37.7 C H 86 16 149/70 H 90 Room Air PG Care Time/CCT Total # of Minutes Spent Total Time Spent with Patient: Total time spent is greater than 50% in coordination of care (as documented) at patient's floor/unit and/or counseling patient: Coding Level of Care Code 23958 Subseq Hosp Care Lvl 2 Diagnoses Right ureteral calculus N20.1 Hydronephrosis, right N13.30 Solitary kidney, acquired Z90.5
--- NOTE | 2021-12-07 12:34 | Hospitalist Progress Note ---
Date of Service December 07, 2021 Assessment & Plan (1) Renal colic: (2) Hydronephrosis, right: (3) Right ureteral calculus: (4) H/O unilateral nephrectomy: (5) Urinary tract infection: Plan Patient is a 71-year-old female with history of solitary right kidney ( Hx of left nephrectomy in her 20s), rheumatoid arthritis, depression, GERD presented to the ED with left-sided abdominal pain and decreased urinary frequency. She was found to have 2 cm ureteric stone in the ureteropelvic junction. She underwent cystoscopy with right urine aspiration, retropyelogram and stent placement on 12/06 by urology. 1) Right ureteric stone s/p Cystoscopy with stent placement on 12/06 2) Right sided hydronephrosis 3) Urinary tract infection 4) NEGRO, obstructive Presented with decreased urinary frequency and flank pain. Urinalysis tests WBC 1030, urine bacteria present CT abdomen2 cm obstructing calculus in right utero pelvic junction Creatinine downtrending to 2.30 after peak of 3.38. WBC count 11 Plan; -- Continue on ceftriaxone for now. We will follow-up on blood culture and urine culture. Patient to follow-up with urology as outpatient for definitive stone management. Obtain daily BMP for NEGRO. -- Stop IV fluids. Chronic conditions: 3. History of rheumatoid arthritis: We will hold Rinvoq. Resume on Discharge. 4. History of depression: Continue Zoloft. 5. Gastroesophageal reflux disease: Continue omeprazole. 6. History of asthma: Continue home inhalers. 7. Anxiety: She is on Xanax p.r.n. 8 Deep venous thrombosis prophylaxis: heparin Admission and Anticipated Discharge Date Admission Date: December 06, 2021 Subjective Patient seen and examined at bedside. She was sitting up on the chair in no apparent distress. Jimenez was in place draining clear urine. She complains of having fever and chills overnight; T-max recorded overnight was 37.7 C. Review of Systems Review of Systems: All systems reviewed & are unremarkable except as noted in Subjective Physical Exam Physical Exam: GENERAL: The patient is of moderate build, not in acute distress. HEENT: Pupils equal, round and reactive to light. Oral mucosa moist. NECK: No JVD, no neck masses. CARDIOVASCULAR: S1 and S2 heard. Regular rate and rhythm. No murmur, no gallop. RESPIRATORY SYSTEM: Normal AP diameter. No accessory muscle use. No wheezing, no crackles. ABDOMEN: Right CVA tenderness present. Tenderness present in Right lower abdomen. CENTRAL NERVOUS SYSTEM: Cranial nerves II-XII grossly intact, nonfocal. EXTREMITIES: No edema, no erythema. Results & Data Results & Data ([facility]) Vital Signs (Past 12 Hours) Vital Signs Temp Pulse Resp BP Pulse Ox O2 Del Method 12/07/21 07:50 37.0 C 79 16 138/80 94 Room Air 12/07/21 04:50 36.5 C 12/07/21 04:06 37.7 C H 86 16 149/70 H 90 Room Air Laboratory Results Laboratory Results WBC 5.56 K/ul (4.8-10.8) 12/07/21 07:30 RBC 2.97 M/uL (3.93-5.22) L 12/07/21 07:30 Hgb 8.5 g/dl (12.0-16.0) L 12/07/21 07:30 Hct 26.8 % (34.1-44.9) L 12/07/21 07:30 MCV 90.2 fL (80.0-100.0) 12/07/21 07:30 MCH 28.6 pg (25.0-34.0) 12/07/21 07:30 MCHC 31.7 g/dL (32.0-36.0) L 12/07/21 07:30 RDW Std Deviation 44.9 fL (36.4-46.3) 12/07/21 07:30 RDW Coeff of [place] 13.5 % (11.5-14.5) 12/07/21 07:30 Plt Count 260 K/uL (130-400) 12/07/21 07:30 MPV 8.7 fL (9.4-12.3) L 12/07/21 07:30 Immature Gran % (Auto) 0.4 % 12/06/21 07:01 Neut % (Auto) 76.0 % 12/06/21 07:01 Lymph % (Auto) 11.0 % 12/06/21 07:01 [place] % (Auto) 12.0 % 12/06/21 07:01 Eos % (Auto) 0.3 % 12/06/21 07:01 Baso % (Auto) 0.3 % 12/06/21 07:01 Neut # (Auto) 8.47 K/uL (1.4-6.5) H 12/06/21 07:01 Lymph # (Auto) 1.22 K/uL (1.2-3.4) 12/06/21 07:01 [place] # (Auto) 1.33 K/uL (0.24-0.82) H 12/06/21 07:01 Eos # (Auto) 0.03 K/uL (0-0.50) 12/06/21 07:01 Baso # (Auto) 0.03 K/uL (0-0.2) 12/06/21 07:01 Immature Gran # (Auto) 0.04 K/uL (0.00-0.02) H 12/06/21 07:01 Sodium 138 mmol/L (136-145) 12/07/21 07:30 Potassium 4.5 mmol/L (3.5-5.1) 12/07/21 07:30 Chloride 108 mmol/L (98-107) H 12/07/21 07:30 Carbon Dioxide 23 mmol/L (21-32) 12/07/21 07:30 Anion Gap 7 (3-11) 12/07/21 07:30 BUN 29 mg/dl (6-23) H 12/07/21 07:30 Creatinine 2.30 mg/dl (0.6-1.2) H D 12/07/21 07:30 Est Cr Clr Drug Dosing 23.7 ml/min 12/07/21 07:30 Est GFR ( Amer) 24.1 ml/min 12/07/21 07:30 Est GFR (Non-Af Amer) 20.8 ml/min 12/07/21 07:30 BUN/Creatinine Ratio 12.6 (10-20) 12/07/21 07:30 Glucose 84 mg/dl (70-99(Fasting)) 12/07/21 07:30 Estimat Average Glucose 131 mg/dl 12/06/21 07:01 Hemoglobin A1c 6.2 % (4.5-5.6) H 12/06/21 07:01 Calcium 7.7 mg/dl (8.5-10.1) L 12/07/21 07:30 Magnesium 1.8 mg/dl (1.7-2.4) 12/06/21 07:01 Total Bilirubin 0.4 mg/dl (0.2-1.0) 12/05/21 21:51 AST 21 U/L (13-39) 12/05/21 21:51 ALT 25 U/L (7-52) 12/05/21 21:51 Alkaline Phosphatase 80 U/L (34-104) 12/05/21 21:51 Total Protein 7.9 gm/dl (6.0-8.3) 12/05/21 21:51 Albumin 3.9 gm/dl (3.4-5.0) 12/05/21 21:51 Globulin 4.0 gm/dl (2.5-4.0) 12/05/21 21:51 Albumin/Globulin Ratio 1.0 (0.9-2) 12/05/21 21:51 Urine Color Yellow 12/07/21 01:50 Urine Appearance Cloudy (Clear) A 12/07/21 01:50 Urine pH 5.5 (4.5-7.5) 12/07/21 01:50 Ur Specific [place] 1.005 (1.000-1.030) 12/07/21 01:50 Urine Protein Trace (Negative) H 12/07/21 01:50 Urine Glucose (UA) Negative (Negative) 12/07/21 01:50 Urine Ketones Negative (Negative) 12/07/21 01:50 Urine Blood 2+ (Negative) H 12/07/21 01:50 Urine Nitrite Negative (Negative) 12/07/21 01:50 Urine Bilirubin Negative (Negative) 12/07/21 01:50 Urine Urobilinogen Negative (Negative) 12/07/21 01:50 Ur Leukocyte Esterase 2+ (Negative) H 12/07/21 01:50 Urine WBC (Auto) >30 /hpf (0-5) H 12/07/21 01:50 Urine RBC (Auto) 0-4 /hpf (0-4) 12/07/21 01:50 U Hyaline Cast (Auto) 5-10 /lpf (0-5) H 12/07/21 01:50 U Epithel Cells (Auto) >30 /lpf (0-5) H 12/07/21 01:50 Urine Bacteria (Auto) Negative (Negative) 12/07/21 01:50 Ur Renal Epithelial Cell 5-10 /lpf (0-5) H 12/07/21 01:50 Urine Crystals Cancelled 12/05/21 Unknown Calcium Oxalate Crystal Cancelled 12/05/21 Unknown Uric Acid Crystals Cancelled 12/05/21 Unknown Triple Phos Crystals Cancelled 12/05/21 Unknown Other Crystals Cancelled 12/05/21 Unknown Amorphous Sediment Cancelled 12/05/21 Unknown Granular Casts Cancelled 12/05/21 Unknown Waxy Casts Cancelled 12/05/21 Unknown RBC Casts Cancelled 12/05/21 Unknown WBC Casts Cancelled 12/05/21 Unknown Other Casts Cancelled 12/05/21 Unknown Urine Mucus Cancelled 12/05/21 Unknown Urine Other Cancelled 12/05/21 Unknown Urine Trichomonas Cancelled 12/05/21 Unknown Urine Yeast Cancelled 12/05/21 Unknown Urine Sperm Cancelled 12/05/21 Unknown Ur Oval Fat Bodies Cancelled 12/05/21 Unknown SARS-CoV-2, RNA, NAAT NEGATIVE (NEGATIVE) 12/06/21 01:00 Impressions Abdomen/Pelvis CT 12/05/21 23:02 CT SCAN OF THE ABDOMEN AND PELVIS WITHOUT IV CONTRAST CLINICAL HISTORY: Right flank pain COMPARISON STUDY: Abdominal CT dated 01/03/2015. TECHNIQUE: CT scan of the abdomen and pelvis is performed from the lung bases to the proximal femora. Images are reviewed in the axial, sagittal, and coronal planes. IV contrast was not administered for this examination. A dose lowering technique was utilized adhering to the principles of ALARA. CT DOSE: 1477.95 mGy.cm FINDINGS: Lung bases: The heart is top normal in size and without pericardial effusion. There are coronary artery calcifications. A 4 mm pulmonary nodule in the right middle lobe seen on image #18 has been present dating back to 2014, as have a 5 mm pleural-based nodule the right lung base on image #60 and a 4 mm pleural- based nodule in the right lower lobe on image #29. The lung bases are otherwise clear noting bibasilar scarring/atelectasis. There is a small hiatal hernia. Liver: The unenhanced liver is top normal in size and demonstrates diffusely diminished attenuation indicating steatosis. Fatty sparing is seen adjacent to gallbladder fossa. There is no intrahepatic biliary ductal dilatation. Gallbladder: Unremarkable. Spleen: Normal in size and attenuation. Pancreas: Unremarkable. Adrenal glands: Unremarkable. Kidneys: The left kidney is surgically absent. The right kidney is normal in size. There is moderate to severe right-sided hydronephrosis secondary to a 2 cm calculus at the right ureteropelvic junction. This is seen image #202. There is associated right-sided perinephric stranding and trace fluid. No additional right renal or ureteral calculi are seen. There is no evidence of contour deforming renal mass lesion. Abdominal vasculature: The abdominal aorta is normal in course and caliber noting mild atherosclerotic calcification. Bowel: There is moderate colonic diverticulosis without CT evidence of acute diverticulitis. No bowel obstruction is identified. Mild to moderate fecal retention is noted in the right colon. The appendix is well-visualized and normal. Peritoneum: There is no intraperitoneal free air or abdominal ascites. There is a fat-containing umbilical hernia. Lymphadenopathy: None. Pelvic viscera: The bladder is decompressed and grossly unremarkable. The uterus and adnexa are normal as visualized. There are bilateral fat-containing groin hernias. Skeletal structures: The skeletal structures are osteopenic. There is mild to moderate lumbosacral spondylosis. No lytic or blastic lesions are seen. IMPRESSION: 1. There is a 2 cm obstructing calculus at the right ureteropelvic junction. This causes moderate to severe right-sided hydronephrosis. 2. No additional right renal calculi are identified. 3. The left kidney is surgically absent. 4. Colonic diverticulosis without CT evidence of acute diverticulitis. 5. Hepatic steatosis. 6. Additional findings as above. ACT 112: Negative or not required by law. Electronically signed by: Jhon Malhotra M.D. 12/06/2021 8:26 AM Retrograde Pyelogram 12/06/21 13:00 INTRAOPERATIVE RADIOGRAPHS CLINICAL HISTORY: Right ureteral stent placement. Fluoroscopy time: 10 seconds. FINDINGS: 4 spot images of the right abdomen from a ureteral stent placement procedure are presented. The initial image shows a wire in the right ureter. On the second image this has been advanced to the renal pelvis. Injected contrast shows hydronephrosis. A filling defect within the renal pelvis likely corresponds to the known large UPJ stone. The final 2 images show the proximal and distal ends of a right ureteral stent in place. IMPRESSION: Intraoperative images from a right ureteral stent placement procedure as above. Electronically signed by: Jhon Malhotra M.D. 12/06/2021 1:44 PM
[2021-12-07] MEDS ORDERED: HEPARIN SOD 5,000 UNIT/0.5 ML VIAL SQ SCH (14:00)
--- NOTE | 2021-12-07 14:53 | Discharge Summary ---
Date of Service December 07, 2021 Principal Diagnosis Obstructed right kidneyprior left radical nephrectomy Discharge Data Allergies Allergy/AdvReac Type Severity Reaction Status Date / Time No Known Allergies Allergy Unknown Verified 04/15/15 09:59 Consultations 12/06/21 01:05 Consult Urology Routine 12/06/21 01:13 ED Decision to Admit Stat Procedures Performed Operation Date: 12/06/21 12:40 Actual Procedures p Cystoscopy Right Retrograde Pyelogram and Stent Placement, Jimenez Catheter Placement(Right) - Nelson Yousif, Ordered Studies 12/05/21 23:02 CT abd pelvis wo con Urgent 12/06/21 13:00 FL retrograde includes kub Routine Hospital Course (1) Right ureteral calculus: (2) Hydronephrosis, right: Plan Tom [place] nephric female who presented with an acute obstruction of the right ureter. She underwent cystoscopy and right ureteral stent placement had a substantial improvement in her creatinine overnight. She feels very well today and has been producing a high quantity of urine. She is stable for discharge home. Cultures all no growth Total Time Total Time Spent Total Time Spent (In Minutes): 15 Discharge Plan Discharge Items Patient Disposition: Home - Self-Care Reason For Visit: URINARY SYMPTOMS Discharge Diagnosis: obstructed mono-nephric kidney Activity: Resume your previous activity Lifting: Gradually increase as tolerated Bathing: No limitations Sexual Activity: When tolerated Exercise/Sports: Gradually increase as tolerated Driving/Machine Use: No limitations Non-emergency contact: Urologist Call non-emergency contact if: you have any medication questions, your pain is not controlled, your pain is unusual for you, you have a fever and your temperature is above 101.5 Follow-up/Referrals: Alex Ansari MD [Primary Care Provider] - Diet: Regular Addtl Attending Provider Instructions: Please take all medications as prescribed and keep all follow-ups as scheduled. Please call our office at [phone] with any questions, concerns or need to reschedule appointments for any reason. We are happy to assist you. While you have a ureteral stent in place: Some discomfort is normal. Certain movements may trigger pain or a feeling that you need to urinate. You may also feel mild soreness or pressure before or during urination. These symptoms should go away a few days after the stent is removed. Your urine may be slightly pink or red. This is due to bleeding caused by minor irritation from the stent. This may happen on and off while you have the stent, it is not harmful and is to be expected. Medication to help minimize discomfort or bladder spasms, or to prevent infection may be prescribed. Take this as directed. Drink plenty of fluids to help flush out your urinary tract. If you go home with a catheter, wash with soapy water and a fresh washcloth twice daily. We recommend mild bar soap such as Dial or Dove. How long will you need a stent? An appointment should already be made for you for stent removal, unless directed otherwise. The stent is often taken out after the blockage in the ureter is treated or the ureter has healed. This may take 1-2 weeks, or longer. If a stent is needed for a longer period of time, it may need to be exchanged every few months. Likely prior to your followup appointment you will be asked to get an X-ray, please complete this the night before or morning of your appointment. When to call [facility] at [phone]: Your urine contains heavy blood clots You are constantly leaking urine Fever of 101F or higher, chills, nausea, or vomiting Your pain is not relieved with medication The end of the stent comes out of your urethra THE UROLOGY OFFICE WILL CONTACT YOU TO ARRANGE FOR FOLLOW UP AN OUTPATIENT. Pending Studies at Discharge: No Stand-Alone Forms: My [facility] [employer], Smoking Cessation Medications and DC Order Prescriptions: Continued alprazolam [Xanax] 0.25 mg Tablet 0.25 mg PO HS PRN (Reason: Anxiety) Zoloft 100 mg 100 mg PO DAILY omeprazole 20 mg Capsule,Delayed Release(Dr/Ec) 20 mg PO DAILY fluticasone propionate [Flonase] 50 mcg/actuation [place],Suspension 1 spray INTRANASAL DAILY levocetirizine 5 mg Tablet 5 mg PO PM Rinvoq 15 mg Tablet Extended Release 24 Hr 15 mg PO DAILY Nasal [place] (sodium chloride) 0.65 % 1 spray intranasal Q6 PRN (Reason: Nasal Congestion) Systane (propylene glycol) 0.6 % 1 drp OPB DAILY albuterol sulfate 2 puff 2 puff inhalation Q4H PRN (Reason: Cough) Discharge Orders: Discharge Order (Routine); Ordered 12/07/21 Ordered By: Manpreet Faust/Other Patient Handouts: Prediabetes, 5 Steps for Eating Healthier Admission Data Admit Date/Time: 12/06/21 02:09 Attending Provider: Morgan Amezcua Admit Provider: Jan Veliz Primary Care Provider: Alex Ansari Other Providers: Carlos Barragan ; Jan Veliz Coding Level of Care Code D/C DAY MANAGEMENT <30 MINS Diagnoses Right ureteral calculus N20.1 Hydronephrosis, right N13.30
--- NOTE | 2021-12-07 16:51 | Discharge Summary ---
Date of Service December 07, 2021 Admission HPI Per Admitting Provider This is a 71-year-old female with past medical history significant for prediabetes, allergic rhinitis, mild persistent asthma without complication, sleep apnea, nocturnal hypoxemia, GERD, left nephrectomy because of pyel onephritis at age 21, chronic kidney disease stage III, osteoarthrosis, restless legs syndrome, rheumatoid arthritis of multiple sites, history of ITP, history of depression, presents with ongoing right flank pain for the last 3 weeks. She had 2 courses of antibiotics, first course of Bactrim, but is not getting better and today her pain got severe, and while ambulating, she felt somewhat lighthea ded and nauseous. She is having burning micturition. In ER found to have right UP junction kidney stone. No blurred visions, no earache, no runny nose, no sore throat, no cough, no chest pain, no shortness of breath. Normal bowel movements. Resting comfortably, hemodynamically stable. Admission Exam Per Admitting Provider GENERAL: The patient is of moderate build, not in acute distress. VITAL SIGNS: Temperature 36.5, pulse 66, respiratory rate 18, blood pressure 119/51, oxygen 93% on room air. HEENT: Pupils equal, round and reactive to light. Oral mucosa moist. NECK: No JVD, no neck masses. CARDIOVASCULAR: S1 and S2 heard. Regular rate and rhythm. No murmur, no gallop. RESPIRATORY SYSTEM: Normal AP diameter. No accessory muscle use. No wheezing, no crackles. ABDOMEN: Soft, bowel sounds present. Right CVA tenderness present. Mild discomfort in the right flank region and right lower abdomen. Mild guarding, no distention. CENTRAL NERVOUS SYSTEM: Cranial nerves II-XII grossly intact, nonfocal. EXTREMITIES: No edema, no erythema. Principal Diagnosis 1) Right ureteric stone s/p Cystoscopy with stent placement on 12/06 2) Right sided hydronephrosis 3) Urinary tract infection 4) NEGRO, obstructive Discharge Exam GENERAL: The patient is of moderate build, not in acute distress. HEENT: Pupils equal, round and reactive to light. Oral mucosa moist. NECK: No JVD, no neck masses. CARDIOVASCULAR: S1 and S2 heard. Regular rate and rhythm. No murmur, no gallop. RESPIRATORY SYSTEM: Normal AP diameter. No accessory muscle use. No wheezing, no crackles. ABDOMEN: Right CVA tenderness present. Tenderness present in Right lower abdomen. CENTRAL NERVOUS SYSTEM: Cranial nerves II-XII grossly intact, nonfocal. EXTREMITIES: No edema, no erythema. Discharge Data Allergies Allergy/AdvReac Type Severity Reaction Status Date / Time No Known Allergies Allergy Unknown Verified 04/15/15 09:59 Consultations 12/06/21 01:05 Consult Urology Routine 12/06/21 01:13 ED Decision to Admit Stat Procedures Performed Operation Date: 12/06/21 12:40 Actual Procedures p Cystoscopy Right Retrograde Pyelogram and Stent Placement, Jimenez Catheter Placement(Right) - Nelson Yousif, Ordered Studies 12/05/21 23:02 CT abd pelvis wo con Urgent 12/06/21 13:00 FL retrograde includes kub Routine Hospital Course (1) Renal colic: (2) Hydronephrosis, right: (3) Right ureteral calculus: (4) H/O unilateral nephrectomy: (5) Urinary tract infection: Plan Patient is a 71-year-old female with history of solitary right kidney ( Hx of left nephrectomy in her 20s), rheumatoid arthritis, depression, GERD presented to the ED with left-sided abdominal pain and decreased urinary frequency. She was found to have 2 cm ureteric stone in the ureteropelvic junction on CT scan. She underwent cystoscopy with right urine aspiration, retropyelogram and stent placement on 12/06 by urology. Preliminary Urine culture didn't any growth. Patient creatinine downtrended on the day of the discharge. She was able to pass urine by herself post-operatively. She is scheduled for procedure for stone removal by urology as outpatient. She was given prescription for cefixime 400 mg once daily for 7 days. She was also asked to follow-up with her PCP within this week to repeat BMP. She verbalized understanding of the discharge instruction. Total Time Total Time Spent Total Time Spent (In Minutes): 35 Total Time Includes: Examination of the Patient, Discharge Planning, Medication Reconciliation, Communication With Other Providers and Other Discharge Plan Discharge Items Patient Disposition: Home - Self-Care Reason For Visit: URINARY SYMPTOMS Discharge Diagnosis: obstructed mono-nephric kidney 1) Right ureteric stone s/p Cystoscopy with stent placement on 12/06 2) Right sided hydronephrosis 3) Urinary tract infection 4) NEGRO, obstructive Activity: Resume your previous activity Lifting: Gradually increase as tolerated Bathing: No limitations Sexual Activity: When tolerated Exercise/Sports: Gradually increase as tolerated Driving/Machine Use: No limitations Non-emergency contact: Primary Care Provider and Urologist Call non-emergency contact if: you have any medication questions, your pain is not controlled, your pain is unusual for you, you have a fever and your temperature is above 101.5 Follow-up/Referrals: Alex Ansari MD [Primary Care Provider] - (Date & Time 12/15/2021 11:20 AM Provider Alex Ansari MD Department [facility] ) Diet: Regular Addtl Attending Provider Instructions: Please take all medications as prescribed and keep all follow-ups as scheduled. Please call our office at [phone] with any questions, concerns or need to reschedule appointments for any reason. We are happy to assist you. While you have a ureteral stent in place: Some discomfort is normal. Certain movements may trigger pain or a feeling that you need to urinate. You may also feel mild soreness or pressure before or during urination. These symptoms should go away a few days after the stent is removed. Your urine may be slightly pink or red. This is due to bleeding caused by minor irritation from the stent. This may happen on and off while you have the stent, it is not harmful and is to be expected. Medication to help minimize discomfort or bladder spasms, or to prevent infection may be prescribed. Take this as directed. Drink plenty of fluids to help flush out your urinary tract. If you go home with a catheter, wash with soapy water and a fresh washcloth twice daily. We recommend mild bar soap such as Dial or Dove. How long will you need a stent? An appointment should already be made for you for stent removal, unless directed otherwise. The stent is often taken out after the blockage in the ureter is treated or the ureter has healed. This may take 1-2 weeks, or longer. If a stent is needed for a longer period of time, it may need to be exchanged every few months. Likely prior to your followup appointment you will be asked to get an X-ray, please complete this the night before or morning of your appointment. When to call [facility] at [phone]: Your urine contains heavy blood clots You are constantly leaking urine Fever of 101F or higher, chills, nausea, or vomiting Your pain is not relieved with medication The end of the stent comes out of your urethra THE UROLOGY OFFICE WILL CONTACT YOU TO ARRANGE FOR FOLLOW UP AN OUTPATIENT. Medication instructions: 1) Please take Cefixime 400mg once daily for 7 days. 2) Please follow up with your PCP within this week and repeat BMP. Pending Studies at Discharge: No Stand-Alone Forms: My [facility], Smoking Cessation Medications and DC Order Prescriptions: New cefixime 400 mg capsule 400 mg PO DAILY 7 Days Qty: 7 0RF Continued alprazolam [Xanax] 0.25 mg Tablet 0.25 mg PO HS PRN (Reason: Anxiety) Zoloft 100 mg 100 mg PO DAILY omeprazole 20 mg Capsule,Delayed Release(Dr/Ec) 20 mg PO DAILY fluticasone propionate 50 mcg/actuation [place],Suspension 1 spray INTRANASAL DAILY levocetirizine 5 mg Tablet 5 mg PO PM Rinvoq 15 mg Tablet Extended Release 24 Hr 15 mg PO DAILY Nasal [place] (sodium chloride) 0.65 % 1 spray intranasal Q6 PRN (Reason: Nasal Congestion) Systane (propylene glycol) 0.6 % 1 drp OPB DAILY albuterol sulfate 2 puff 2 puff inhalation Q4H PRN (Reason: Cough) Discharge Orders: Discharge Order (Routine); Ordered 12/07/21 Ordered By: Manpreet Faust/Other Patient Handouts: Prediabetes, 5 Steps for Eating Healthier Admission Data Admit Date/Time: 12/06/21 02:09 Attending Provider: Morgan Amezcua Admit Provider: Jan Veliz Primary Care Provider: Alex Ansari Other Providers: Carlos Barragan ; Jan Veliz Other Interventions: Discharge Summary Assessment (RN) Last Done: 12/07/21 16:20
== END 2021-12-07 17:04 | disposition home or self-care (01) | DRG 661 ==
LOC: ED 21:11 → SUATTDRO 12-06 02:09 → EDINP 12-06 02:09 → 3E 12-06 13:48

== ENCOUNTER 2022-03-08 05:27 | Observation (INO) ==
--- NOTE | 2021-12-14 09:37 | Anesthesiology Consultation ---
Date of Service December 14, 2021 Assessment & Plan Chart Review Chart Review: Pending: Refer to Additional Notes / Consult section and Patient NOT seen in Pre Admission Testing Patient had ureteral stone with stenting in 12/06. It appears she still has both the stone and and stent awaiting a second procedure for lithotripsy. She is an adequate candidate for surgery, but please be sure that Dr Owens is aware if the stone and stent is planned to remain through the perioperative period. She had an expected drop in H/H after her last procedure, so we will check it on the AM of surgery. Consults Requested none History Surgery Operation Date: 01/18/22 07:00 Proposed Procedures p Right Total Knee Arthroplasty - Roney Owens MD Allergies Allergy/AdvReac Type Severity Reaction Status Date / Time No Known Allergies Allergy Unknown Verified 12/13/21 11:06 Medications Home Medications Medication Instructions Recorded Confirmed Last Taken Nasal [place] (sodium chloride) 1 spray intranasal Q6H PRN Nasal 12/06/21 12/13/21 Unknown Congestion Systane (propylene glycol) 1 drp OPB QAM 12/06/21 12/13/21 Unknown alprazolam 0.25 mg tablet (Xanax) 0.25 mg PO HS PRN Anxiety 12/06/21 12/13/21 Unknown fluticasone propionate 50 1 spray intranasal QAM 12/06/21 12/13/21 Unknown mcg/actuation nasal spray,suspension levocetirizine 5 mg tablet 5 mg PO HS 12/06/21 12/13/21 Unknown omeprazole 20 mg capsule,delayed 20 mg PO QAM 12/06/21 12/13/21 Unknown release upadacitinib 15 mg tablet,extended 15 mg PO DAILY 12/06/21 12/13/21 Unknown release 24 hr (Rinvoq) phenazopyridine 200 mg tablet 200 mg PO TID PRN pain #10 tabs 12/10/21 12/13/21 Unknown (Pyridium) albuterol sulfate 90 mcg/actuation 2 puff inhalation QID PRN 12/13/21 12/13/21 Unknown aerosol inhaler Shortness Of Breath cefixime 400 mg capsule 400 mg PO QAM 12/13/21 12/13/21 Unknown sertraline 100 mg tablet (Zoloft) 100 mg PO QAM 12/13/21 12/13/21 Unknown tamsulosin 0.4 mg capsule 0.4 mg PO HS 12/13/21 12/13/21 Unknown Past Medical History Medical History Asthma inh prn History of anxiety History of COVID-19 03/2021, [facility], not hosp; cold, fever, cough>resolved. Hx of gastroesophageal reflux (GERD) Hx of renal calculi Osteoarthritis Right knee DJD Sleep apnea cpap "hasn't used in about a month because mask Past Surgical History Surgical History (Updated 12/13/21 @ 11:33 by Chelo Salas) History of esophagogastroduodenoscopy (EGD) History of nephrectomy "aquired" Hx of colonoscopy S/P cystoscopy with ureteral stent placement Social History Smoking Status: Never smoker Hx Alcohol Use: Yes alcohol intake frequency: holidays/special occasions only Hx Substance Use: No substance use type: does not use Testing Electrocardiogram Date: 12/06/21 Findings: + NSR @ and + pertinent finding (pvcs)
--- NOTE | 2021-12-23 09:08 | PAT Medication Instructions ---
Medication Instructions Date of Service December 23, 2021 Home Medications Medication Instructions Recorded oxycodone-acetaminophen 7.5 mg-325 1 tab PO Q8H PRN pain #7 tabs 12/16/21 mg tablet (Percocet) phenazopyridine 200 mg tablet 200 mg PO Q8H PRN pain #10 tabs 12/16/21 (Pyridium) tamsulosin 0.4 mg capsule 0.4 mg PO HS #30 caps 12/16/21 amoxicillin 875 mg-potassium 1 tab PO BID #20 tabs 12/21/21 clavulanate 125 mg tablet Nasal [place] (sodium chloride) 1 spray intranasal Q6H PRN Systane (propylene glycol) 1 drp OPB QAM alprazolam 0.25 mg tablet (Xanax) 0.25 mg PO HS PRN fluticasone propionate 50 mcg/actuation nasal spray,suspension 1 spray intranasal QAM levocetirizine 5 mg tablet 5 mg PO HS omeprazole 20 mg capsule,delayed release 20 mg PO QAM PRN upadacitinib 15 mg tablet,extended release 24 hr (Rinvoq) 15 mg PO DAILY albuterol sulfate 90 mcg/actuation aerosol inhaler 2 puff inhalation QID PRN cefixime 400 mg capsule 400 mg PO QAM sertraline 100 mg tablet (Zoloft) 100 mg PO QAM oxycodone-acetaminophen 7.5 mg-325 mg tablet (Percocet) 1 tab PO Q8H PRN phenazopyridine 200 mg tablet (Pyridium) 200 mg PO Q8H PRN tamsulosin 0.4 mg capsule 0.4 mg PO HS amoxicillin 875 mg-potassium clavulanate 125 mg tablet 1 tab PO BID Continue as directed Nasal [place] (sodium chloride) 1 spray intranasal Q6H PRN(if needed) ASK your prescriber and surgeon upadacitinib 15 mg tablet,extended release 24 hr (Rinvoq) 15 mg PO DAILY DO NOT take the morning of surgery phenazopyridine 200 mg tablet (Pyridium) 200 mg PO Q8H PRN Take morning of surgery With a small sip of water, OTHERWISE NOTHING TO EAT OR DRINK AFTER MIDNIGHT: fluticasone propionate 50 mcg/actuation nasal spray,suspension 1 spray intranasal QAM Systane (propylene glycol) 1 drp OPB QAM omeprazole 20 mg capsule,delayed release 20 mg PO QAM PRN(if needed) albuterol sulfate 90 mcg/actuation aerosol inhaler 2 puff inhalation QID PRN(use if needed; please bring with you to hospital day of surgery if possible) cefixime 400 mg capsule 400 mg PO QAM sertraline 100 mg tablet (Zoloft) 100 mg PO QAM oxycodone-acetaminophen 7.5 mg-325 mg tablet (Percocet) 1 tab PO Q8H PRN(if needed) amoxicillin 875 mg-potassium clavulanate 125 mg tablet 1 tab PO BID Take evening before surgery alprazolam 0.25 mg tablet (Xanax) 0.25 mg PO HS PRN(if needed) levocetirizine 5 mg tablet 5 mg PO HS albuterol sulfate 90 mcg/actuation aerosol inhaler 2 puff inhalation QID PRN(if needed) oxycodone-acetaminophen 7.5 mg-325 mg tablet (Percocet) 1 tab PO Q8H PRN(if needed) phenazopyridine 200 mg tablet (Pyridium) 200 mg PO Q8H PRN(if needed) tamsulosin 0.4 mg capsule 0.4 mg PO HS amoxicillin 875 mg-potassium clavulanate 125 mg tablet 1 tab PO BID Other Notes If you have any questions please call us at [phone] or [phone] or [phone] or [phone]
--- NOTE | 2022-03-03 16:30 | Anesthesiology Consultation ---
Date of Service March 03, 2022 Assessment & Plan (1) Encounter for pre-operative examination: - COVID screening: Per assessment on 03/03: No known COVID-19 positive contacts or current COVID-19 related symptoms. Travel screen- will be in [place] 03/05. Patient vaccinated. At surgeon discretion if preop Covid testing being done. - Outpatient joint assessment: Pt currently scheduled for inpatient pathway. If surgeon requests review for outpatient joint pathway, patient is not recommended candidate for outpatient joint program from anesthesia standpoint. - S/P cystoscopy, ureteroscopy, laser lithotripsy (12/16/21): LMA#[address] [facility]. No issues noted per post-op anesthesia progress note. - Case was reviewed by Dr. Hinson for Right TKA when it was scheduled for 1 - he felt patient was acceptable risk for surgery but recommended repeat CBC given available post-op labs at that time noting anemia. Recheck CBC done 02/14/22 with normalized H/H. Chart Review Chart Review: Acceptable Risk for Surgery (pending evaluation AM DOS) and Patient seen in Pre Admission Testing Consults Requested none ASA ASA2 Proposed Anesthesia Anesthesia Type: MAC Spinal Regional Regional Laterality: Right Site: Adductor Canal Risk / Benefits Reviewed With: PT / POA / Parent / Guardian, Accepts Plan and Informed Consent Obtained History Surgery Operation Date: 01/18/22 07:00 Proposed Procedures p Right Total Knee Arthroplasty - Roney Owens MD Operation Date: 03/08/22 07:00 Proposed Procedures p Right Total Knee Arthroplasty - Ronye Owens MD Height/Weight Height: 5 ft 3 in Weight: 85.729 kg Allergies Allergy/AdvReac Type Severity Reaction Status Date / Time No Known Allergies Allergy Unknown Verified 03/08/22 05:48 Medications Home Medications Medication Instructions Recorded Confirmed Last Taken Nasal Cement (sodium chloride) 1 spray intranasal Q6H PRN Nasal 12/06/21 03/08/22 12/15/21 08:30 Congestion Systane (propylene glycol) 1 drp OPB QAM 12/06/21 03/08/22 03/08/22 04:30 alprazolam 0.25 mg tablet (Xanax) 0.25 mg PO HS PRN Anxiety 12/06/21 03/08/22 11/24/21 fluticasone propionate 50 1 spray intranasal QAM 12/06/21 03/08/22 12/16/21 07:30 mcg/actuation nasal spray,suspension levocetirizine 5 mg tablet 5 mg PO HS 12/06/21 03/08/22 12/14/21 20:30 omeprazole 20 mg capsule,delayed 20 mg PO QAM PRN Acid Reflux 12/06/21 03/08/22 11/24/21 release upadacitinib 15 mg tablet,extended 15 mg PO DAILY 12/06/21 03/08/22 10/27/21 release 24 hr (Rinvoq) albuterol sulfate 90 mcg/actuation 2 puff inhalation QID PRN 12/13/21 03/08/22 11/24/21 aerosol inhaler Shortness Of Breath sertraline 100 mg tablet (Zoloft) 100 mg PO QAM 12/13/21 03/08/22 12/14/21 07:30 oxycodone-acetaminophen 7.5 mg-325 1 tab PO Q8H PRN pain #7 tabs 12/16/21 03/08/22 Unknown mg tablet (Percocet) phenazopyridine 200 mg tablet 200 mg PO Q8H PRN pain #10 tabs 12/16/21 03/08/22 01/05/22 (Pyridium) tamsulosin 0.4 mg capsule 0.4 mg PO HS #30 caps 12/16/21 03/08/22 12/22/21 acetaminophen 500 mg capsule 1,000 mg PO TID Pain 30 days #180 03/07/22 03/08/22 03/03/22 caps aspirin 81 mg tablet,delayed 81 mg PO BID 45 days #90 tabs 03/07/22 03/08/22 01/24/22 release (Flaquito Low Dose Aspirin) ondansetron HCl 4 mg tablet 4 mg PO Q6 PRN nausea #20 tabs 03/07/22 03/08/22 Unknown oxycodone 5 mg tablet 5 - 10 mg PO Q6 PRN pain #40 tabs 03/07/22 03/08/22 Unknown sennosides 8.6 mg-docusate sodium 1 tab-cap PO DAILY #14 tabs 03/07/22 03/08/22 Unknown 50 mg tablet (Senokot-S) Active Medications Generic Name Dose Route Start Last Admin Trade Name Freq PRN Reason Stop Dose Admin Acetaminophen 1,000 mg 03/08/22 06:00 03/08/22 06:16 Acetaminophen 500 Mg Tab PO 03/08/22 18:00 1,000 mg PREOP PAMELA Administration Celecoxib 200 mg 03/08/22 06:00 03/08/22 06:17 Celebrex 200 Mg Cap PO 03/08/22 18:00 200 mg PREOP PAMELA Administration Famotidine 20 mg 03/08/22 06:00 03/08/22 06:15 Famotidine 20 Mg Tab PO 03/08/22 18:00 20 mg PREOP PAMELA Administration Lactated Ringer's 1,000 mls @ 15 mls/hr 03/08/22 06:00 03/08/22 06:15 Lr IV 03/08/22 18:00 15 mls/hr .Q24H PAMELA Administration Lactated Ringer's 1,000 mls @ 60 mls/hr 03/08/22 06:00 03/08/22 06:15 Lr IV 03/08/22 22:39 Not Given .[id number] PAMELA Metoclopramide HCl 10 mg 03/08/22 06:00 03/08/22 06:17 Metoclopramide Hcl 10 Mg Tablet PO 03/08/22 18:00 10 mg PREOP PAMELA Administration Scopolamine 1 mg 03/08/22 06:00 03/08/22 06:20 Scopolamine 1 Mg Tdsy TD 03/08/22 18:00 1 mg PREOP PAMELA Administration NPO Date Last Intake of Fluids: 03/08/22 Time Last Intake of Fluids: 00:00 Date Last Intake of Solids: 03/08/22 Time Last Intake of Solids: 00:00 Past Medical History Medical History Anemia Hx Asthma rarely uses inhaler History of anxiety History of cardiac arrhythmia Hx bigeminy/ventricular ectopy, unremarkable echo 2019 History of COVID-19 Dx 03/2021, Symptoms at time: cold, fever, cough > resolved Hx of gastroesophageal reflux (GERD) Hx of renal calculi Lupus Sleep apnea CPAP "hasn't used in about a month because mask does not fit correctly" Solitary kidney, acquired Urinary tract infection Exercise / Class Metabolic Activity II 4-5 Yardwork/Stairs/Walk up hill Past Family History Family History Other No family history of adverse response to anesthesia Past Surgical History Surgical History History of esophagogastroduodenoscopy (EGD) History of nephrectomy Hx of colonoscopy S/P cystoscopy with ureteral stent placement last 12/16/[address] [facility]: LMA #4. Past Anesthesia History No Hx of Anesthesia Complications and No Family Hx of Anesthesia Complications History of PONV No Hx of PONV and No Hx of Motion Sickness Social History Smoking Status: Never smoker Do You Dip or Chew Tobacco: No Hx Alcohol Use: Yes alcohol intake frequency: holidays/special occasions only Hx Substance Use: No substance use type: does not use Physical Exam Vital Signs Last Vital Signs Temp 98.1 F 03/08/22 05:55 Pulse 85 03/08/22 05:55 Resp 20 03/08/22 05:55 BP 151/88 H 03/08/22 05:55 Pulse Ox 96 03/08/22 05:55 O2 Del Method 03/08/22 05:55 ENMT Mouth: no dentition abnormality Thyromental Distance: > or= 3.5 Finger Breadths Mallampati Class: II Neck normal visual inspection Respiratory normal respiratory effort Auscultation: lungs clear to auscultation bilaterally Cardiovascular Rate/Rhythm: regular rate and regular rhythm Heart Sounds: no murmur Lab Results Anesthesia Preop Results Results Anesthesia Widget: WBC 7.08 K/ul (4.8-10.8) 02/14/22 Hgb 13.3 g/dl (12.0-16.0) 02/14/22 Hct 40.5 % (34.1-44.9) 02/14/22 Plt 346 K/uL (130-400) 02/14/22 Na 136 mmol/L (136-145) 02/14/22 K 4.5 mmol/L (3.5-5.1) 02/14/22 Cl 101 mmol/L (98-107) 02/14/22 CO2 28 mmol/L (21-32) 02/14/22 BUN 17 mg/dl (6-23) 02/14/22 Creat 0.95 mg/dl (0.6-1.2) 02/14/22 Glucose Level 88 mg/dl (70-99(Fasting)) 02/14/22 PT 10.3 Seconds (9.0-12.0) 02/14/22 PTT 24.7 Seconds (21.0-31.0) 02/14/22 INR 1.0 (0.9-1.1) 02/14/22 SARS-CoV-2, RNA, NAAT NEGATIVE (NEGATIVE) 03/08/22 Blood Type B Positive 02/14/22 Antibody Screen NEGATIVE 02/14/22 Testing Electrocardiogram Date: 12/06/21 NSR with frequent PVCs in pattern of bigeminy. Low voltage QRS. Chest X-Ray Date: 12/13/21 Findings: + NAD Echocardiogram Date: 09/25/19 EF 63%. No regional motion abnormality. Grade 1 diastolic dysfunction. Mild mitral annular calcification. SR with frequent PVCs present during echo.
[2022-03-08] MEDS ORDERED: BUPIVACAINE LIPOSOME/PF 266 MG, BUPIVACAINE/EPINEPHRINE 50 ML, SODIUM CHLORIDE 0.9% 30 ... INFIL SCH (06:00)
[2022-03-08] MEDS ORDERED: LR 500ML BOLUS, THEN 15ML/HR IV SCH (06:00)
[2022-03-08] MEDS ORDERED: ACETAMINOPHEN 500 MG TAB PO SCH (06:00)
[2022-03-08] MEDS ORDERED: Scopolamine 1 MG TDSY TD SCH (06:00)
[2022-03-08] MEDS ORDERED: LR 60ML/HR IV SCH (06:00)
[2022-03-08] MEDS ORDERED: FAMOTIDINE 20 MG TAB PO SCH (06:00)
[2022-03-08] MEDS ORDERED: CeleBREX 200 MG CAP PO SCH (06:00)
[2022-03-08] MEDS ORDERED: ceFAZolin 2000MG 2,000 MG/15 ML SYR IV SCH (06:00)
[2022-03-08] MEDS ORDERED: METOCLOPRAMIDE HCL 10 MG TABLET PO SCH (06:00)
[2022-03-08] MEDS ORDERED: TRANEXAMIC ACID 1,000 MG **IV Intra-op IV SCH (06:00)
[2022-03-08] MEDS ORDERED: BUPIVACAINE 0.5 % 5 MG/1 ML PF 10ML VIAL ONE (06:35)
[2022-03-08] MEDS ORDERED: BUPIVACAINE LIPOSOME 1.3% 266 MG/20 ML VIAL ONE (06:37)
[2022-03-08] MEDS ORDERED: fentaNYL citrate 100 MCG/2 ML VIAL IV PRN (06:37)
[2022-03-08] MEDS ORDERED: ONDANSETRON INJ 2 MG/ML 2 ML VIAL IV PRN ×2 (06:37→09:58)
[2022-03-08] MEDS ORDERED: BUPIVACAINE/EPINEPHRINE 0.25% 1:200,000 30 ML VIAL ONE (06:37)
[2022-03-08] MEDS ORDERED: ePHEDrine sulfate 50 MG/ML AMP IV PRN (06:37)
[2022-03-08] MEDS ORDERED: ATROPINE SULFATE 0.1 MG/ML 10ML SYR IV PRN (06:37)
[2022-03-08] MEDS ORDERED: SODIUM CHLORIDE 0.9% PF 50 ML VIAL ONE (06:37)
[2022-03-08] MEDS ORDERED: MIDAZOLAM HCL 1 MG/ML 2ML VIAL ONE (06:41)
--- NOTE | 2022-03-08 06:56 | History & Physical Bridge Note ---
Date of Service March 08, 2022 History & Physical Bridge Note I have examined the patient, reviewed the History & Physical and in the interval since the performance of the History & Physical I have noted the following changes of clinical significance: no changes noted
[2022-03-08] MEDS ORDERED: ONDANSETRON INJ 2 MG/ML 2 ML VIAL ONE (07:45)
[2022-03-08] MEDS ORDERED: PROPOFOL IV EMULSION 10 MG/ML 20 ML VIAL IV ONE ×3 (07:45→08:15)
--- NOTE | 2022-03-08 08:58 | Operative Report ---
PG Post Operative Report Pre & Post Diagnosis Operation Date: 01/18/22 07:00 <No data on this case meets the specified criteria> Operation Date: 03/08/22 07:00 Pre-Op Diagnosis: Right Knee Osteoarthritis Post-Op Diagnosis: Right Knee Osteoarthritis I identified the patient and participated in the time-out.: Yes Procedure Operation Date: 01/18/22 07:00 <No data on this case meets the specified criteria> Operation Date: 03/08/22 07:00 Actual Procedures p Right Total Knee Arthroplasty(Right) - Roney Owens MD Surgeon Roney Owens MD Hotel Breakfast Attendant Kota Rico PA-C Estimated Blood Loss 50 Findings Consistent with Post-Op Diagnosis Operative findings advanced right knee DJD. She had extensive grade 4 [id number] disease of the medial compartment of her knee with osteophytes primarily medially. She had a varus deformity to her knee. Moderate-sized joint effusion. Fluids 1200 cc Specimens Right knee sent for pathology Drains None Anesthesia Type Spinal MAC Complications none Disposition Accompanied Patient To Recovery: No Indications Patient is 71-year-old female said a long history of right knee pain discomfort describes gotten worse over time. She been through extensive conservative treatment. That she was actually scheduled for knee replaced on several occasions and had to be canceled for various reasons. Pain is become more debilitating over time. She is now elected proceed with total knee arthroplasty. Description of Procedure Operative implants consist of: 1. Biomet Vanguard size 65 right posterior stabilized femoral component. 2. Biomet size 67 tibial tray. 3. 10 mm posterior stabilized polyethylene insert. 4. 31 x 8 all Paller patella. The patient was taken the operating, identified, placed on the operating table supine position protectors were properly padded. IV antibiotics tried by anesthesia team. A spinal anesthetic and abductor canal block had provided in the holding area. Jimenez catheter was placed in sterile fashion. Right Tetrick was then placed in the right lower extremities and prepped and draped in usual sterile fashion. The right leg was elevated exsanguinated with use of an Esmarch and the tourniquet was set at 300 mmHg. An anterior approach of the right knee was then performed to longitudinal incision centered over the patella. Sharp dissection was carried through subcutaneous tissue down the extensor mechanism. Medial parapatellar arthrotomy incision was made. Some subperiosteal dissection was carried out medially. The fat pad was resected from Neath patella tendon. Lateral patellofemoral ligament was released. Patella subluxated laterally and the knee was flexed. The osteophytes were taken off distal femur. The ACL and PCL were then released from distal femur. The tibia subluxated anteriorly. External tibial alignment jig was then placed in the interface the tibia and adjusted 14 mm medially. Proximal tibial cut was made remove about a millimeter or 2 of bone from the most deficient aspect the medial tibial plateau. Some osteophytes were taken off medial and posterior medially. The tibia was sized to size 67. Attention drawn the femur. The distal femur examined the sharp drop with intramedullary canal was suction. A right 5 degree valgus cutting guide was placed. Distal femoral cutting block was pinned in place. Distal femoral cut was made to take an additional 3 mm bone off distal femur. The femur was then sized to a size 65. We did downsize this about half a size. The AP cutting block was pinned parallel to the epicondylar axis which was 3 degrees of external rotation. Anterior cut, an terior chamfer, posterior cut, posterior chamfer cuts were made. The box cutting guide was placed and adjusted slightly laterally. The box cut was made. The knee was flexed. The remnants of the medial and lateral menisci were excised. The osteophytes taken off the posterior aspect the femur. A trial femoral component was placed. Tibial tray was pinned in maximum external rotation and the drill and stem punch used to create defect in proximal tibia for the tibial tray. The knee was then trialed and a 10 mm insert fit most appropriately. Attention drawn the patella. The patella was cleaned of all soft tissues. The patella thickness measured 21 mm in thickness was cut down to 13. Was sized to a size 31 patella. The lug holes were drilled for 31 patella. The lateral osteophyte was removed. Patella button was placed. Knee was taken through range of motion patella tracked nicely with no thumbs test. Attention drawn to placing permanent components. All trial components were removed. Bone plug was placed in the distal femur to limit blood loss. A double batch Palacos G cement was mixed. BiomBuildFaxguard size 65 right posterior stabilized femoral component, a size 67 tibial tray, a 10 mm posterior stabilized polyethylene insert, and a 31 x 8 all Paller patella then cemented in place. Knee was brought out into full extension until cement hardened. Final cement check was then performed. The pericapsular tissues were injected with total 100 cc of a combination of 20 cc of Exparel, 30 cc of normal saline and 50 cc of quarter percent Marcaine with epinephrine. Patient did receive 1 g tranexamic acid. The tourniquet was then let down for final tourniquet time 54 minutes but hemostasis assured with electrocautery. Extensor mechanism then closed with combination of #1 PDS suture #1 Vicryl suture in a [id number] fashion. Extensor mechanism checked found to be intact and subcutaneous tissue then closed with 2 Dexon suture in a buried interrupted fashion skin was closed skin consuelo. Leg was then cleaned and dried and a sterile dressing was Xeroform, 4 fours, sterile cast padding, Godwin bandage were applied. The patient then transferred to the recovery room in stable condition. Patient tolerated the procedure well and there were no complications. Kota Rico, my physician facilities maintenance assistant, was present for the entire procedure. His assistance was essential and required for appropriate patient positioning, prepping and draping, surgical exposure, performing the technical details of the operation, placement the implants, closure of the wound, and placement of the sterile bandage. I attest to the content of the Intraoperative Record and any orders documented therein. Any exceptions are noted below.
--- NOTE | 2022-03-08 09:41 | Anesthesiology Progress Note ---
Date of Service March 08, 2022 Anesthesia Post Procedure Vital Signs Vital Signs: Temp Pulse Pulse Resp BP Pulse Ox O2 Del Method 03/08/22 09:40 97.2 F L 68 13 124/62 93 Room Air 03/08/22 09:30 71 17 102/63 91 Room Air 03/08/22 09:20 71 15 97/82 L 92 Room Air 03/08/22 09:10 71 12 118/51 L 94 Oxymask 03/08/22 09:00 72 17 122/61 98 Oxymask 03/08/22 08:50 96.8 F L 75 16 100/54 L 98 Oxymask 03/08/22 05:55 98.1 F 85 20 151/88 H 96 Room Air 03/08/22 05:55 Room Air O2 Flow Rate 03/08/22 09:40 03/08/22 09:30 03/08/22 09:20 03/08/22 09:10 3 03/08/22 09:00 3 03/08/22 08:50 7 03/08/22 05:55 03/08/22 05:55 Pain Intensity Right Knee: Pain Intensity: 5 Bilateral Shoulder: Pain Intensity: 3 Transfer of Care Handoff Completed per policy Notes Mental Status: alert / awake / arousable and participated in evaluation Patient Amnestic to Procedure: Yes Nausea / Vomiting: adequately controlled Pain: adequately controlled Airway Patency, RR, SpO2: stable & adequate BP & HR: stable & adequate Hydration State: stable & adequate Neuraxial Anesthesia: was administered and sensory block is resolving Anesthetic Complications: no major complications apparent and Pt Satisfied with anesthetic care
[2022-03-08] MEDS ORDERED: PHENAZOPYRIDINE HCL 200 MG TAB PO PRN (09:58)
[2022-03-08] MEDS ORDERED: MAGNESIUM HYDROXIDE SUSP 30 ML UDC PO PRN (09:58)
[2022-03-08] MEDS ORDERED: ALPRAZolam 0.25 MG TABLET PO PRN (09:58)
[2022-03-08] MEDS ORDERED: HYDROmorphone INJ 0.5 MG/0.5 ML SYR IV PRN (09:58)
[2022-03-08] MEDS ORDERED: ALUMINUM/MAGNESIUM SUSP 30 ML UDC PO PRN (09:58)
[2022-03-08] MEDS ORDERED: ALBUTEROL HFA 8 GM INHALER INH PRN (09:58)
[2022-03-08] MEDS ORDERED: bisacodyL 10 MG SUPP PR PRN (09:58)
[2022-03-08] MEDS ORDERED: NALOXONE HCL 0.4 MG/1 ML VIAL/CARP IV PRN (09:58)
[2022-03-08] MEDS ORDERED: METOCLOPRAMIDE HCL INJ 5 MG/ML 2 ML VIAL IV PRN (09:58)
--- NOTE | 2022-03-08 10:54 | XRay Report ---
TWO VIEWS RIGHT KNEE CLINICAL HISTORY: Postoperative examination. FINDINGS: AP and crosstable lateral portable views of the right knee are obtained. A right knee arthr oplasty is in near anatomic alignment. There has been undersurface remodeling of the patella. No acut e fracture is seen. There are expected postoperative changes around the knee including skin clips, so ft tissue edema, and subcutaneous gas. IMPRESSION: Expected postoperative changes status post right knee arthroplasty. No acute fracture is seen. ACT 112: Negative or not required by law. Electronically signed by: Jhon Malhotra M.D. 03/08/2022 10:53 AM
[2022-03-08] MEDS ORDERED: SODIUM CHLORIDE 0.65% NA SOLN 45 ML (OCEAN) PRN (11:27)
[2022-03-08] MEDS ORDERED: PANTOprazole 40 MG TAB PO PRN (11:28)
--- NOTE | 2022-03-08 12:14 | Progress Notes ---
DATE OF SERVICE: 03/08/2022. SUBJECTIVE: A 71-year-old female postoperative from a right knee replacement. She is doing pretty w ell. She does not have any feeling yet back in her legs. She has no pain. No chest pain or shortne ss of breath. Not feeling dizzy or lightheaded. OBJECTIVE: VITAL SIGNS: Temperature 36.4. Vital signs are stable. GENERAL: Shows a pleasant middle-aged female. She is lying in bed, reading a book, and looks comfor table. LUNGS: Clear to auscultation. HEART: Regular rate and rhythm. ABDOMEN: Soft, nontender, nondistended. EXTREMITIES: Grossly neurovascularly intact, except as follows. Examination of the right leg reveals the leg to be well aligned. Dressing is clean, dry, and intact. She has no significant motor function yet. She has got brisk refill with good distal pulse. X-RAYS: X-ray of the right knee from recovery room is reviewed. It shows a right cemented posterior stabilized total knee arthroplasty. Components looked to be in good position. No signs of problems . ASSESSMENT: A 71-year-old female postoperative from a right knee replacement, doing well. Pain is c ontrolled. The block is the spinal, is still in effect. PLAN: 1. DVT prophylaxis includes thigh-high TEDs, SCDs, and aspirin twice a day. 2. PT, OT, weightbear as tolerated. Right total knee protocol. 3. Pain control. She is doing fine with current pain regimen. Spinal has not worn off yet. We will have to adjust meds as needed as the spinal wears off. 4. IV antibiotics x24 hours. 5. Disposition: She is planning to be discharged to home. She has a daughter that lives nearby and friends are willing to help. They will see how she does in therapy tomorrow. She is planning to be discharged to home with home health eventually. Job ID: [id number]
[2022-03-08] MEDS: DOCUSATE SODIUM/SENNA 50/8.6MG TAB PO SCH (12:18)
[2022-03-08] MEDS: SODIUM CHLORIDE 0.9% 1000ML 1,000 ML IV SCH ×2 (12:18→21:08)
[2022-03-08] MEDS: KETOROLAC TROMETHAMINE 15 MG/ML VIAL IV SCH ×3 (12:18→23:07)
[2022-03-08] MEDS: DOCUSATE SODIUM 100 MG CAP PO SCH ×2 (12:18→21:01)
[2022-03-08] MEDS: SERTRALINE HCL 100 MG TABLET PO SCH (12:25)
[2022-03-08] MEDS: FLUTICASONE PROPIONATE NA SPR 16 GM BTL NAE SCH (12:37)
[2022-03-08] MEDS: ASPIRIN 81 MG ECTAB PO SCH ×2 (12:37→21:01)
[2022-03-08] MEDS: MULTIVITAMIN TAB PO SCH (12:38)
[2022-03-08] MEDS: ACETAMINOPHEN 500 MG TAB PO SCH ×2 (13:21→21:04)
[2022-03-08] MEDS ORDERED: TRANEXAMIC ACID / 0.7% NACL 1,000 MG/100 ML BAG IV SCH (15:00)
[2022-03-08] MEDS: ceFAZolin 2000MG 2,000 MG/15 ML SYR IV SCH ×2 (15:22→23:08)
[2022-03-08] MEDS: Scopolamine CHECK PATCH PLACEMENT SCH (15:23)
[2022-03-08] MEDS: ASCORBIC ACID 500 MG TAB PO SCH (17:09)
[2022-03-08] MEDS ORDERED: CETIRIZINE HCL 10 MG TABLET PO SCH (21:00)
[2022-03-08] MEDS ORDERED: TAMSULOSIN HCL 0.4 MG CAP PO SCH (21:00)
[2022-03-08] MEDS ORDERED: SENNA 8.6 MG TAB PO SCH (21:00)
[2022-03-08] MEDS: oxyCODONE HCL IR 5 MG TAB (IMMEDIATE RELEASE) PO PRN (23:07)
[2022-03-09] MEDS: Scopolamine CHECK PATCH PLACEMENT SCH ×2 (00:07→08:16)
[2022-03-09] MEDS: ACETAMINOPHEN 500 MG TAB PO SCH (05:34)
[2022-03-09] MEDS: KETOROLAC TROMETHAMINE 15 MG/ML VIAL IV SCH ×2 (05:34→12:04)
[2022-03-09] MEDS ORDERED: dexAMETHasone 10 MG in SYRINGE 0 ML IV SCH (08:00)
[2022-03-09] MEDS: DOCUSATE SODIUM/SENNA 50/8.6MG TAB PO SCH (08:14)
[2022-03-09] MEDS: DOCUSATE SODIUM 100 MG CAP PO SCH (08:14)
[2022-03-09] MEDS: FLUTICASONE PROPIONATE NA SPR 16 GM BTL NAE SCH (08:15)
[2022-03-09] MEDS: ASPIRIN 81 MG ECTAB PO SCH (08:16)
[2022-03-09] MEDS: MULTIVITAMIN TAB PO SCH (08:16)
[2022-03-09] MEDS: ASCORBIC ACID 500 MG TAB PO SCH (08:16)
[2022-03-09] MEDS: SERTRALINE HCL 100 MG TABLET PO SCH (08:17)
[2022-03-09] MEDS: oxyCODONE HCL IR 5 MG TAB (IMMEDIATE RELEASE) PO PRN (08:27)
[2022-03-09 08:45] LABS: Hematocrit (blood only) 32.7 % (34.1-44.9); Hemoglobin 10.7 g/dl (12.0-16.0); Mean Corpuscular Hgb Conc 32.7 g/dL (32.0-36.0); Mean Corpuscular Volume 85.6 fL (80.0-100.0); Mean Platelet Volume 8.7 fL (9.4-12.3); Platelet Count 235 K/uL (130-400); RDW Standard Deviation 43.7 fL (36.4-46.3); Red Blood Count 3.82 M/uL (3.93-5.22); White Blood Count 4.96 K/ul (4.8-10.8)
[2022-03-09] MEDS ORDERED: ARTIFICIAL TEARS OP SCH (09:00)
[2022-03-09 09:22] LABS: BUN Creatinine Ratio 18.9 (10-20); Calcium 8.4 mg/dl (8.5-10.1); Creatinine Clr Calc Pharmacy 61.8 ml/min; Est GFR (African American) 75.1 ml/min; Est GFR (Non-African American) 64.8 ml/min; Potassium 4.1 mmol/L (3.5-5.1)
--- NOTE | 2022-03-09 11:52 | Progress Notes ---
DATE OF SERVICE: 03/09/2022 SUBJECTIVE: A 71-year-old female postoperative day 1 from right knee replacement. She is doing quit e well. Pain has been very manageable. She is currently meeting with the occupational therapist. D enies any chest pain or shortness of breath. Not feeling dizzy or lightheaded. Hoping to go home to day. OBJECTIVE: VITAL SIGNS: Temperature 36.9. Vital signs are stable. GENERAL: Shows a pleasant middle-aged female. She is sitting of her bedside chair, looks pretty com fortable. EXTREMITIES: Examination of the right leg reveals the dressing to be clean, dry and intact. Leg is well aligned. She can dorsiflex and plantarflex her foot appropriately. She is neurologically intac t. She can do a good straight leg raise. LABORATORY DATA: Hemoglobin 10.7. Hematocrit 32.7. Electrolytes are stable. ASSESSMENT: A 71-year-old female postoperative day 1 from right knee replacement, doing quite well. Pain is controlled. She is neurologically intact. PLAN: 1. DVT prophylaxis includes thigh-high TEDs, SCDs, and aspirin twice a day. 2. PT, OT, weightbear as tolerated. Right total knee protocol. 3. Pain control, doing okay with current pain regimen. Pain is very manageable. 4. Disposition: Plan is to discharge her to home with home health. She has got a family help with her care along with home health. Job ID: [id number]
--- NOTE | 2022-03-15 06:39 | Discharge Summary ---
Date of Service March 15, 2022 Discharge Data Procedures Performed Operation Date: 01/18/22 07:00 <No data on this case meets the specified criteria> Operation Date: 03/08/22 07:00 Actual Procedures p Right Total Knee Arthroplasty(Right) - Roney Owens MD Hospital Course (1) Status post total right knee replacement: This is a 71 year old patient admitted on 03/08/22 and underwent total knee arthroplasty. She tolerated the procedure well and there were no complications. Transferred to the PACU post op and later to the orthopedic floor for further care. She was given ancef for antibiotic prophylaxis. She was also given ABRAM stockings, SCDs, and aspirin for DVT prophylaxis. Hemoglobin, hematocrit, and vital signs were monitored during her hospital stay and remained stable. Did not require any blood transfusions. There were no complications during her hospital stay. By post op day #1 the patient was tolerating a regular diet, pain was reasonably controlled with oral pain medicine, and she was participating in physical therapy. On post op day #1 the patient was discharged home and set up with home health care. She was given printed discharge instructions including prescriptions for extra strength tylenol, aspirin, oxycodone, zofran, and senokot. Continue physical therapy, weight bearing as tolerated. Continue ABRAM stockings. Follow up approximately 2 weeks post op or sooner if there are problems or concerns. Coding Level of Care Code None Diagnoses Status post total right knee replacement Z96.651
== END 2022-03-09 13:34 | disposition home health service (06) ==
LOC: ASU 05:27 → 3E 05:27

== ENCOUNTER 2023-07-28 08:26 | Observation (INO) ==
--- NOTE | 2023-06-21 15:26 | PAT Medication Instructions ---
Medication Instructions Date of Service June 21, 2023 Home Medications acetaminophen 500 mg tablet (Tylenol Extra Strength) 1,000 mg PO BID PRN Pain Take morning of surgery With a small sip of water, OTHERWISE NOTHING TO EAT OR DRINK AFTER MIDNIGHT: acetaminophen 500 mg tablet (Tylenol Extra Strength) 1,000 mg PO BID PRN Pain (if needed) Take evening before surgery acetaminophen 500 mg tablet (Tylenol Extra Strength) 1,000 mg PO BID PRN Pain (if needed) Other Notes If you have any questions please call us at [phone] or [phone] or [phone] or [phone]
--- NOTE | 2023-06-30 11:17 | Anesthesiology Consultation ---
Date of Service June 30, 2023 Assessment & Plan (1) Encounter for pre-operative examination: Chart Review Chart Review: Acceptable Risk for Surgery and Patient NOT seen in Pre Admission Testing - Patient is NOT an OPJ candidate due to patient preference (currently 23 hour obs) Per PAT appt on 06/30/23, no recent illness/disease exposures, illness related symptoms, or recent illness/disease positive tests. Will leave to surgeon's d iscretion if preop Covid testing needed Right TKA 03/08/22= Done under [facility] at L3-4 with three attempts. Cystoscopy, Right ureteroscopy, laser lithotripsy 12/16/21= Done under [facility] with LMA #4. Atraumatic placement Teaching & Discussion Pre-Anesthesia Teaching/Discussion Notes: Instructed NPO after midnight before surgery,except medications with 15 cc of water. Medication instructions provided according to the [facility] guidelines. History Surgery Operation Date: 07/28/23 09:00 Proposed Procedures p Left Reverse Total Shoulder Arthroplasty(Left) - Sebas Nicole, DO Height/Weight Height: 5 ft 4 in Weight: 85.3 kg Allergies Allergy/AdvReac Type Severity Reaction Status Date / Time No Known Allergies Allergy Unknown Verified 06/19/23 07:32 Medications Home Medications Medication Instructions Recorded Confirmed Last Taken acetaminophen 500 mg tablet 1,000 mg PO BID PRN Pain 03/27/23 06/19/23 Unknown (Tylenol Extra Strength) Past Medical History Medical History Asthma rarely uses inhaler well controlled per patient History of anxiety History of cardiac arrhythmia Hx bigeminy/ventricular ectopy, unremarkable echo 2019 History of COVID-19 Dx 03/2021, Symptoms at time: cold, fever, cough > resolved 03/2023, pcp test, not hosp; mild symptoms>tx w/paxlovid- no current symptoms History of ITP ~2001, lasted for 2 weeks, no current issues Hx of gastroesophageal reflux (GERD) Well controlled and stable Hx of renal calculi No recent issues Lupus Will be seeing S rheum at the end of June Sleep apnea does not use device Solitary kidney, acquired s/p nephrectomy - Exercise / Class Metabolic Activity III < 4 Walking/Shop/Light housework (one flight of stairs- mild SOB, no chest pain ) Past Family History Family History Other No family history of adverse response to anesthesia Past Surgical History Surgical History History of esophagogastroduodenoscopy (EGD) History of lumbar surgery History of nephrectomy Due to nonfunctioning - 2021- no current issues with remaining kidney History of total right knee replacement Hx of arthroscopy of shoulder rt, w/RCT repair Hx of bilateral cataract extraction Hx of colonoscopy Hx of tubal ligation S/P cystoscopy with ureteral stent placement last 12/16/21 @ [facility]: LMA #4. Past Anesthesia History No Hx of Anesthesia Complications and No Family Hx of Anesthesia Complications History of PONV No Hx of PONV and No Hx of Motion Sickness Social History Smoking Status: Never smoker Do You Dip or Chew Tobacco: No Hx Alcohol Use: Yes Alcohol type: beer alcohol intake frequency: holidays/special occasions only Hx Substance Use: No substance use type: does not use Review of Systems Patient denies chest pain, shortness of breath at rest, cough, wheezing, palpitations. No hx of seizures, stroke, NC. No hx of blood clots or blood transfusions Physical Exam Vital Signs VITALS BP 130/80 P 80 TEMP 98.1 SP02 95% RESP 16 Constitutional no acute distress ENMT Mouth: no TMJ clicking Thyromental Distance: < 3.5 Finger Breadths (2.5) Mallampati Class: III Partial denture on bottom Neck + limited neck extension (mild) Respiratory normal respiratory effort; no respiratory distress Auscultation: lungs clear to auscultation bilaterally; no wheezes Cardiovascular Rate/Rhythm: regular rate and regular rhythm Heart Sounds: no murmur Vessels: no carotid bruit Musculoskeletal Spine: no pain with cervical ROM Extremities: extremities normal to inspection Psychiatric Orientation: alert Lab Results Anesthesia Preop Results Results Anesthesia Widget: WBC 5.29 K/ul (4.8-10.8) 06/30/23 Hgb 13.1 g/dl (12.0-16.0) 06/30/23 Hct 40.2 % (37.0-47.0) 06/30/23 Plt 277 K/uL (130-400) 06/30/23 Na 138 mmol/L (136-145) 06/30/23 K 4.3 mmol/L (3.5-5.1) 06/30/23 Cl 104 mmol/L (98-107) 06/30/23 CO2 30 mmol/L (21-32) 06/30/23 BUN 17 mg/dl (6-23) 06/30/23 Creat 0.78 mg/dl (0.6-1.2) 06/30/23 Glucose Level 100 mg/dl (70-99(Fasting)) H 06/30/23 PT 10.5 Seconds (9.0-12.0) 06/30/23 PTT 25 Seconds (21-31) 06/30/23 INR 1.0 (0.9-1.1) 06/30/23 Blood Type B Positive 06/30/23 Antibody Screen NEGATIVE 06/30/23 Testing Electrocardiogram Date: 06/30/23 Findings: + NSR @ (77bpm) Normal EKG per cardio Chest X-Ray Date: 06/30/23 Findings: + NAD FINDINGS: No pneumothorax. No pleural effusions. Small linear scarlike densities the left lung base have improved. No new focal lung consolidations to suggest a pneumonia. No evidence for pulmonary edema. The heart is normal in size. Mild aortic calcifications are again noted. There are cervical spinal fusion hardware and surgical clips within the left side the abdomen. Echocardiogram Date: 09/25/19 EF 63%. No regional motion abnormality. Grade 1 diastolic dysfunction. Mild mitral annular calcification. SR with frequent PVCs present during echo.
--- NOTE | 2023-07-27 11:03 | History & Physical Report ---
Date of Service July 27, 2023 Assessment & Plan (1) Rotator cuff arthropathy of left shoulder: We will proceed with a left reverse shoulder arthroplasty. Postoperatively she will be placed in a sling and kept overnight in the hospital for postop medical management. She plans to use fit for play at home upon discharge. History of Present Illness Chief Complaint: Cuff tear arthropathy of the left shoulder. Primary Care Provider: Alex Ansari MD Nancy is a pleasant 72-year-old female who has been dealing with chronic increasing left shoulder pain and weakness. She has been treated by another provider in our office. She has had multiple injections. She complains mostly of pain and weakness. She has trouble doing any away from her body or up overhead. She has trouble sleeping at night. She had an MRI of her shoulder, which showed signs of cuff tear arthropathy. After failing extensive conservative treatment, she has elected proceed with a left reverse shoulder arthroplasty.. Allergies Allergy/AdvReac Type Severity Reaction Status Date / Time No Known Allergies Allergy Unknown Verified 06/19/23 07:32 Home Medications Medication Instructions Recorded Confirmed Type acetaminophen 500 mg tablet 1,000 mg PO BID PRN Pain 03/27/23 06/19/23 History (Tylenol Extra Strength) Past Med/Surg History Medical History History of ITP ~2001, lasted for 2 weeks, no current issues History of cardiac arrhythmia Hx bigeminy/ventricular ectopy, unremarkable echo 2019 Hx of renal calculi No recent issues Hx of gastroesophageal reflux (GERD) Well controlled and stable History of anxiety Sleep apnea does not use device Asthma rarely uses inhaler well controlled per patient History of COVID-19 Dx 03/2021, Symptoms at time: cold, fever, cough > resolved 03/2023, pcp test, not hosp; mild symptoms>tx w/paxlovid- no current symptoms Solitary kidney, acquired s/p nephrectomy - Lupus Will be seeing S rheum at the end of June Surgical History Hx of tubal ligation Hx of bilateral cataract extraction History of lumbar surgery History of total right knee replacement Hx of arthroscopy of shoulder rt, w/RCT repair History of nephrectomy Due to nonfunctioning - 2021- no current issues with remaining kidney History of esophagogastroduodenoscopy (EGD) Hx of colonoscopy S/P cystoscopy with ureteral stent placement last 12/16/[address] [facility]: LMA #4. Family History Other No family history of adverse response to anesthesia Social History Smoking Status: Never smoker Second Hand Exposure: No; Do You Dip or Chew Tobacco: No; Tobacco Cessation Education Requested by Patient: No Hx Alcohol Use: Yes Alcohol type: beer Hx Substance Use: No Preferred Language: Hebrew Communication Ability: Effective Rn Supplemental Required: No Beliefs That Will Affect Care: None Current Living Situation: Alone Other Information That Helps Us Care for You: No Feels Safe at Home: Yes Safety Concerns: Feels Safe At This Time Assistive Devices: Denture - Lower Assistive Devices Comment: lower partial denture Review of Systems All systems reviewed & are unremarkable except as noted in HPI & below. Physical Exam On physical examination of the left shoulder, she has 100 degrees of forward elevation 100 degrees of abduction. She has 4 out of 5 motion at the full can test and external rotation. Pain with range of motion testing.. Constitutional WD/WN, vitals as above Eyes PERRL, conjunctivae normal, anicteric sclerae ENMT external ear and nose normal, oropharynx normal Neck trachea midline, no thyromegaly Respiratory normal respiratory effort Cardiovascular RRR, no murmur, no edema Gastrointestinal (Abdomen) normal bowel sounds, soft, nontender, no hepatosplenomegaly Psychiatric A+Ox3, euthymic affect Results & Data Results & Data Laboratory Results . Diagnostic Findings X-rays of the left shoulder show signs of mild osteoarthritis MRI of the left shoulder shows a massive chronic retracted rotator cuff tear with some superior migration of the humeral head on the glenoid.. PG Care Time/CCT Total # of Minutes Spent Total Time Spent with Patient: Total time spent is greater than 50% in coordination of care (as documented) at patient's floor/unit and/or counseling patient: Coding Level of Care Code None Diagnoses Rotator cuff arthropathy of left shoulder M12.812
[~2023-07-28 08:26] MED LIST changes: -ALBU1NEB10 INH; -ALBUAER19 INH; -ATV/1 PO; +BUPIVACAINE 0.5 % 5 MG/1 ML PF 10ML VIAL ONE; -FLUT230A INH; -FOLI1TAB7 PO; -METH2.5T PO; -METO1TAB31 PO; -MONT1TAB3 PO; -MULT-884 PO; -PTDOPS OPB; -VGFVS/24 PV; -[UNRECOGNIZED DRUG - CODE] NAE
[2023-07-28] MEDS ORDERED: fentaNYL citrate PF 100 MCG/2 ML VIAL ONE (08:35)
[2023-07-28] MEDS ORDERED: DEXAMETHASONE SOD INJ 4 MG/ML VIAL ONE (08:35)
[2023-07-28] MEDS ORDERED: MIDAZOLAM HCL 1 MG/ML 2ML VIAL ONE (08:35)
[2023-07-28] MEDS ORDERED: LIDOCAINE 2% 2 ML VIAL/AMP(20MG/ML) INFIL ONE (08:35)
[2023-07-28] MEDS ORDERED: ONDANSETRON INJ 2 MG/ML 2 ML VIAL ONE (08:35)
[2023-07-28] MEDS ORDERED: PROPOFOL IV EMULSION 10 MG/ML 20 ML VIAL IV ONE (08:35)
--- NOTE | 2023-07-28 08:57 | History & Physical Bridge Note ---
Date of Service July 28, 2023 History & Physical Bridge Note I have examined the patient, reviewed the History & Physical and in the interval since the performance of the History & Physical I have noted the following changes of clinical significance: no changes noted
[2023-07-28] MEDS: FAMOTIDINE 20 MG TAB PO SCH (09:14)
[2023-07-28] MEDS: GABAPENTIN 300 MG CAP PO SCH (09:14)
[2023-07-28] MEDS: LR 60ML/HR IV SCH (09:14)
[2023-07-28] MEDS: ACETAMINOPHEN 500 MG TAB PO SCH ×2 (09:14→19:31)
[2023-07-28] MEDS: dexAMETHasone**PF** 10 MG/ML VIAL IV SCH (09:14)
[2023-07-28] MEDS: LR 15ML/HR IV SCH (09:14)
[2023-07-28] MEDS ORDERED: ePHEDrine sulfate 50 MG/ML AMP IV PRN (09:22)
[2023-07-28] MEDS ORDERED: fentaNYL citrate PF 100 MCG/2 ML VIAL IV PRN (09:22)
[2023-07-28] MEDS ORDERED: ONDANSETRON INJ 2 MG/ML 2 ML VIAL IV PRN ×2 (09:22→12:17)
[2023-07-28] MEDS ORDERED: ATROPINE SULFATE 0.1 MG/ML 10ML SYR IV PRN (09:22)
[2023-07-28] MEDS: TRANEXAMIC ACID 1,000 MG **IV Pre-op IV SCH (09:41)
[2023-07-28] MEDS: ceFAZolin 2000MG 2,000 MG/15 ML SYR IV SCH ×2 (10:03→17:56)
[2023-07-28] MEDS ORDERED: GLYCOPYRROLATE 0.2 MG/ML VIAL ONE (10:19)
[2023-07-28] MEDS ORDERED: ePHEDrine sulfate 50 MG/ML AMP ONE (10:19)
[2023-07-28] MEDS ORDERED: PHENYLEPHRINE 100MCG/ML 10ML SYR IV ONE (10:19)
[2023-07-28] MEDS: ORTHO JOINT ANESTHETIC ONE (10:35)
[2023-07-28] MEDS: ROPIV 0.5% 246mg, Ketorolac 30mg, EPINEPHrine 0.5mg in NSS INFIL SCH (11:11)
[2023-07-28] MEDS: TRANEXAMIC ACID 1,000 MG **IV Intra-op IV SCH (11:12)
--- NOTE | 2023-07-28 11:12 | Operative Report ---
PG Post Operative Report Pre & Post Diagnosis Operation Date: 07/28/23 10:00 Pre-Op Diagnosis: Rotator cuff arthropathy of left shoulder with tendinopathy long head of biceps tendon Post-Op Diagnosis: Rotator cuff arthropathy of left shoulder with tendinopathy long head of the biceps tendon I identified the patient and participated in the time-out.: Yes Procedure Operation Date: 07/28/23 10:00 Actual Procedures p Left Reverse Total Shoulder Arthroplasty(Left) with open biceps tenodesis as a distinct and separate procedure (modifier 59)- Sebas Nicole DO Surgeon Sebas Nicole DO [employer] Inspector Tru Epperson PA-C Estimated Blood Loss 150 Findings Consistent with Post-Op Diagnosis Specimens Left humeral head Description of Procedure A CPT code modifier 59: The long head of the biceps tendon was enlarged and inflamed consistent with tendinopathy. A tenodesis was opted. This was a separate and distinct portion of the procedure. For these reasons, a CPT code modifier 59 will be added to this case. Implants used: I used a [employer] Comprehensive reverse total shoulder arthroplasty system with a size 9 press fit micro humeral stem, a +6 offset humeral tray and a standard humeral bearing, a 25 mm baseplate with a 6.5 mm central screw and superior and inferior locking screws, and a size 36 mm eccentric glenosphere. Nancy arrived at [facility] for the above procedure. She was seen in the preoperative holding area and the operative extremity was identified and signed. She was given a preoperative antibiotic, TXA, and an interscalene nerve block. She was taken back to the operating room, laid on table in supine position, and put under general anesthesia. She was then put into the beachchair position. The shoulder was then prepped and draped in sterile fashion. A timeout was done and the patient and the operative extremity was properly identified. A deltopectoral approach was used. Dissection was taken down through the fascia and the deltoid was retracted laterally and the conjoined tendon was retracted medially. The anterior shoulder was exposed. The biceps groove was opened up and the biceps tendon was examined extensively. The biceps tendon demonstrated enlargement and inflammatory changes consistent with longstanding inflammation in the context of osteoarthritis and cuff arthropathy. The long head of the biceps tendon was then tenodesed to the upper border of the pectoralis major. This was a separate and distinct portion of the procedure. The subscapularis was then directly released off the lesser tuberosity with a peel technique. The inferior capsule was released and the humeral head was dislocated. A canal finding reamer was sent down the center of the humeral canal. Sequential reaming up to a size 9 reamer was done. Off that reamer, a proximal humeral resection guide was placed. The proximal humerus was resected at 135 of inclination and 25 of retroversion. Osteophytes were then removed and the glenoid was exposed. Time was spent doing a complete capsular and labral release. The glenoid guide was then placed in the inferior aspect of the glenoid. A 3.2 mm Steinmann pin was then placed into the glenoid vault at 10 of inclination. The glenoid baseplate was then reamed. The final size 25 mm baseplate was then impacted in the place. A 6.5 mm central screw was then placed followed by superior and inferior locking screws. A 36 mm eccentric glenosphere was then impacted into place. Surrounding soft tissues were then injected with 100 cc an orthopedic pain control cocktail. The proximal humerus was then exposed. Sequential broaching of the humerus up to a size 9 broach was done. Off that broach a +6 offset humeral tray was trialed. The shoulder was then reduced, brought through a full range of motion, and felt to be stable. The shoulder was then dislocated and the broach was removed. The final size 9 micro press-fit humeral stem was then impacted into place. A standard humeral bearing was then snapped onto a +6 offset humeral tray. The humeral tray was then impacted onto the humeral stem. The shoulder was once again reduced, brought through a full range of motion, and felt to be stable. The subscapularis was chronically retracted and unable to be repaired. A dilute betadyne lavage was then done for 3 minutes. The joint was then irrigated with normal saline solution. Hemostasis was obtained. The interval was closed with 2-0 Vicryl suture. The skin was then closed with 2-0 Vicryl and consuelo. A Silverlon dressing was placed and the arm was rested in a regular arm sling. She was then extubated and transferred to a hospital bed. She taken to the postanesthesia care unit in stable condition. She tolerated the procedure well. Sebas Tellez PA-C, was present for the entire procedure. He was critical for patient positioning, prepping, draping, retraction exposure, wound closure and application of sterile dressing. I attest to the content of the Intraoperative Record and any orders documented therein. Any exceptions are noted below.
--- NOTE | 2023-07-28 12:09 | Anesthesiology Progress Note ---
Date of Service July 28, 2023 Anesthesia Post Procedure Vital Signs Vital Signs: Temp Pulse Resp BP Pulse Ox O2 Del Method O2 Flow Rate 07/28/23 12:05 94 H 20 153/73 H 93 Room Air 07/28/23 11:55 97.2 F L 88 17 141/66 H 92 Room Air 07/28/23 11:45 87 16 139/64 92 Room Air 07/28/23 11:35 85 23 143/65 H 94 Room Air 07/28/23 11:28 97.2 F L 90 23 149/64 H 95 Oxymask 2 07/28/23 08:57 97.9 F 78 18 Room Air Pain Intensity Left Shoulder: Pain Intensity: 4 Transfer of Care Handoff Completed per policy Notes Mental Status: alert / awake / arousable and participated in evaluation Patient Amnestic to Procedure: Yes Nausea / Vomiting: adequately controlled Pain: adequately controlled Airway Patency, RR, SpO2: stable & adequate BP & HR: stable & adequate Hydration State: stable & adequate Anesthetic Complications: no major complications apparent and Pt Satisfied with anesthetic care
[2023-07-28] MEDS ORDERED: HYDROmorphone INJ 0.5 MG/0.5 ML SYR IV PRN (12:17)
[2023-07-28] MEDS ORDERED: METOCLOPRAMIDE HCL INJ 5 MG/ML 2 ML VIAL IV PRN (12:17)
[2023-07-28] MEDS ORDERED: MAGNESIUM HYDROXIDE SUSP 30 ML UDC PO PRN (12:17)
[2023-07-28] MEDS ORDERED: bisacodyL 10 MG SUPP PR PRN (12:17)
[2023-07-28] MEDS ORDERED: NALOXONE HCL 0.4 MG/1 ML VIAL/CARP IV PRN (12:17)
[2023-07-28] MEDS: SODIUM CHLORIDE 0.9% 1,000 ML IV SCH (12:25)
[2023-07-28] MEDS: KETOROLAC TROMETHAMINE 15 MG/ML VIAL IV SCH (12:30)
--- NOTE | 2023-07-28 12:38 | XRay Report ---
XR shoulder LT min 2V routine CLINICAL HISTORY: Post shoulder surgery TECHNIQUE: 3 views of the left shoulder were obtained. Comparison: Comparison is made to shoulder MRI 03/27/2023 and chest radiograph 06/30/2023 FINDINGS: Patient is status post shoulder arthroplasty with expected postsurgical changes including soft tissue swelling and subcutaneous emphysema. No periarticular lucency or hardware fracture is seen. IMPRESSION: Expected postoperative appearance status post placement of shoulder arthroplasty. ACT 112: Negative or not required by law. Electronically signed by: Tae Escalante M.D. 07/28/2023 12:37 PM
[2023-07-28] MEDS: traMADol HCL 50 MG TABLET PO PRN (19:31)
[2023-07-28] MEDS: SENNA 8.6 MG TAB PO SCH (19:33)
[2023-07-28] MEDS: DOCUSATE SODIUM 100 MG CAP PO SCH (19:33)
[2023-07-28] MEDS: oxyCODONE HCL IR 5 MG TAB (IMMEDIATE RELEASE) PO PRN (21:16)
--- OUTSIDE RECORDS SUMMARY | 2023-07-28 23:07 | External Medical Summary | Summary of Care ---
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 [facility] Department: Specialist Specialty: Rheum Reason for Referral: Med Education Comments Rheumatology Pharmacist Disease Modifying Antirheumatic Drug (DMARD) Co- Management Referral for: DMARD Other: simponi [facility] Additional Comments: none Minimum frequency patient should be seen in person for medication management: As appropriate per clinical condition and patient status By my signature, I understand that my patient, Nancy Bear will have her medication therapy managed by the [facility] Medication Therapy [facility] ([facility]) per established policies, procedures, and protocols. I also certify that this referral may serve as an initiation of service for the management of drug therapy in the above noted patient. [facility] providers will be responsible for scheduling patient visits, obtaining appropriate laboratory studies, and adjusting medication management therapy per patient's need, in addition to those roles spelled out in the clinic policy, procedures, and drug management protocols. I understand that the service provided by the [facility] is voluntary and have informed patient that they can refuse the service at their discretion. I am aware that the [facility] Clinic will provide me with a copy of the patient encounter via my [employer] In-Basket. I authorize the [facility] to carry out these activities on my behalf. I consider this program to be a necessary part of the patient's medical care. Paola Avalos [facility] Reason for Visit * Reason Onset Date Comments Medication Pre-auth 02/24/2023 Simponi Encounter Details Date Type Department Care Team (Late st Contact Info) Description 02/24/2023 Telephone Rheumatology [facility] [address] [place] [address] Linnette Lobo CRNP [address] [place] [address] Medication Pre-auth (Simponi) Allergies Active Allergy Reactions Criticality Noted Date Comments Environmental 11/12/2007 Mold, mildew, pollen cause itchy eyes, running nose documented as of this encounter (statuses as of 07/11/2023) Medications Medication Sig Dispensed Refills Start Date End Date Status Azelastine HCl (ASTELIN) 0.1 % nasal spray Administer 2 Sprays into nostril 2 times a day. 30 mL 11 2018 06/24/2023 Discontinued (Medication List Clean Up) sodium chloride 3% 3 % NEBU Inhale 3 mL via nebulizer 2 times a day. 60 mL 0 11/08/2018 06/24/2023 Discontinued (Medication List Clean Up) documented as of this encounter (statuses as of 07/11/2023) Active Problems Problem Noted Date Diagnosed Date Major depressive disorder with single episode, i n remission 05/04/2023 HTN, goal below 140/90 05/04/2023 Adjustment disorder with anxious mood 05/03/2022 Major depressive disorder with single episode 04 / Chronic kidney disease, stage 3a 09/29/2020 Overview: Per CKD protocol ZARI (obstructive sleep apnea) 02/10/2020 Nocturnal hypoxemia 02/10/2020 Restless legs syndrome 02/10/2020 Prediabetes 01/27/2020 Overview: Per Prediabetes protocol Hypersomnolence disorder 06/19/2019 Insomnia 06/19/2019 Other osteoporosis without current pathological fracture 06/17/2019 Overview: Duplicate Mild persistent asthma without complication 02/16 History of adenomatous polyp of colon 03/13/2018 Primary osteoarthritis of right knee 08/21/2017 Encounter for long-term (current) use of medicat ions 08/21/2017 Rheumatoid arthritis of mult iple 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 factor 01/25/2016 Absence of kidney 02/19/2015 GERD (gastroesophageal reflux disease) 9 Deviated nasal septum 07/11/2008 Allergic rhinitis 12/13/2007 History of ITP 12/08/2005 documented as of this encounter (statuses as of 07/11/2023) Resolved Problems Problem Noted Date Diagnosed Date Resolved Date Encounter for examination fo r normal comparison and control in clinical research program 08/13/2018 11/18/2019 Overview: DO NOT DELETE [facility] DETECT Study: Project # [id number], Record Center Specialist: Parveen Zamudio, PhD. SUMMARY: Goal: Establish test characteristics (sensitivity, specificity, PPV, NPV) of a circulating tumor DNA (ctDNA)-based test for cancer. Hypothesis: Circulating tumor DNA (ctDNA) and elevated protein biomarkers (together, the marker panel) can be detected in asymptomatic individuals with early cancer. Specific Aim 1: Determine the prevalence of a positive marker panel test in a prospective clinical cohort of 10,000 asymptomatic women ages 65 to 75 years. Specific Aim 2: Determine the sensitivity, specificity, positive predictive value (PPV) and negative predictive value (NPV) of a marker panel test to identify histologically proven cancers that develop within 5-years of the marker panel evaluation. CONTACTS: During normal business hours, contact study staff at ; after hours Record Center Specialist via the [facility] salvage machine operator . Please contact study team before resolving/deleting from patients problem list. Study phone number: [phone]. Diagnosis changed due to Research Module. Go to Snapshot for study details. Encounter for examination fo r normal comparison and control in clinical research program 08/13/2018 12/16/2021 Overview: DO NOT DELETE [facility] Study: Project # [id number], Record Center Specialist: Alberto Choi, MS, MPH. SUMMARY: Goal: Establish test characteristics (sensitivity, specificity, PPV, NPV) of a circulating tumor DNA (ctDNA)-based test for cancer. - Hypothesis: Circulating tumor DNA (ctDNA) and elevated protein biomarkers (together, the marker panel) can be detected in asymptomatic individuals with early cancer. - Specific Aim 1: Determine the prevalence of a positive marker panel test in a prospective clinical cohort of 10,000 asymptomatic women ages 65 to 75 years. - Specific Aim 2: Determine the sensitivity, specificity, positive predictive value (PPV) and negative predictive value (NPV) of a marker panel test to identify histologically proven cancers that develop within 5-years of the marker panel evaluation. - CONTACTS: During normal business hours, contact study staff at ; after hours Record Center Specialist via the [facility] salvage machine operator . - Please contact study team before resolving/deleting from patients problem list. Study phone number: [phone]. Diagnosis changed due to Research Module. Go to Snapshot for study details. Other osteoporosis without c urrent pathological fracture 03/13/2018 11/26/2020 Nausea 03/07/2011 05/16/2014 Overview: ICD-10 update of inactive term Asthma, mild persistent 11/22/201002/16 Benign neoplasm of colon 02/15/2009 Overview: adenomatous tissue, recommend f/u in 5 yrs Asthma with severity to be determined 12/23/2008 11/22/2010 Overview: ICD-10 update of inactive term Rhe[facility]oid [facility] of [facility] with negative rheumatoid factor 10/30/2008 01/25/2016 Recurrent sinus infections 07/11/2008 1 Temporomandibular joint diso rders, unspecified 07/11/2008 03/13/2018 Hypertrophy of nasal turbinates 07/11/2008 03/13/2019 Polyarthropathy or polyarthr itis of multiple sites 06/18/2008 05/20/2011 Overview: ICD-10 update of inactive term ADVANCE DIRECTIVE INFORMATION 05/26/2008 03/13/2018 Overview: Yes, Patient instructed to provide copy of advance directive for provider to review and to be scanned into Electronic Medical Record Conjunctivitis, allergic 12/13/2007 Chronic sinusitis 12/13/2007 12/23/2008 Osteoarthrosis, localized, p rimary, involving lower leg 11/12/2007 05/03/2022 Overview: ICD-10 update of inactive term Generalized osteoarthritis 11/12/2007 0 05/16/2014 Asthma, allergic 02/08/2007 12/23/2008 ADJ DISORDER W/DEPRES MOOD 12/12/2005 1 Overview: More specified condition on pl MOOD SWINGS 12/12/2005 05/16/2014 ABN BLOOD CHEMISTRY NEC 12/08/200504/19 Contusion of multiple sites 12/08/2005 12/13/2007 Heartburn 12/05/2005 07/13/2010 ADVANCE DIRECTIVE INFORMATION 11/22/2005 12/13/2007 Overview: Yes, Patient instructed to provide copy of advance directive for provider to review and to be scanned into Electronic Medical Record Dermatitis 11/22/2005 12/13/2007 ADV EFF MED-BIOL SUB NOS 05/31/2005 Chest pain 05/31/2005 05/16/2014 Chronic rhinitis 05/16/2005 12/13/2007 Hemorrhoids, external without complications 02/22/2005 07/13/2010 Internal hemorrhoids 02/22/2005 008 Anorexia 02/07/2005 05/16/2014 ABDOMINAL PAIN, RIGHT LOWER QUADRANT 03/25/2003 05/16/2014 Headache 03/25/2003 07/13/2010 Overview: ICD-10 update of inactive term documented as of this encounter (statuses as of 07/11/2023) Immunizations Name Administration Dates Next Due COVID-19 mRNA, LNP-s, No Pre serve, 2-Dose Series (Pfizer) 10/14/2020,08/14/2020,07/20/2020 Hepatitis B, 20+ yrs 05/19/2023,03/23/2023 PPD 03/10/2010,10/27/2008 Pneumococcal Conjugate Vacc, 13 Valent (Prevnar) 03/13/2018 Pneumococcal Conjugate Vacci ne, 20-valent ([id number]) 05/19/2023 Pneumococcal Polysaccharide PPV23 (Pneumovax) 03/13/2019,05/02/2012,02/08/2007 Season Influenza, Quad, PF, Adjuvanted, 65+ Yrs, IM (FLUAD) 01/23/2020 Seasonal Influenza, PF, 6 M & above, IM , (FluLaval or Fluzone) 01/28/2019,03/13/2018 Seasonal Influenza, Quadriva lent Hd (Fluzone Hd) 02/23/2023,02/17/2022,03/08/2021 Seasonal Influenza, Split, I IV3, With Preserve, Inj 01/11/2016,02/19/2015,01/15/2014,12/17,01/13/2012,01/28/2011,01/18/20 11(Deferred: Patient Refused - will get vaccine at work),01/08/2010,12/23/2008, 8,01/29/2006,02/22/2005 12/23/2009 Seasonal Influenza, Trivalen t, High Dose, No Preserve, IM 01/19/2017 TD, Preservative Free 03/13/2019 TDAP (age 11 and older)(Adacel) 09/04/2008 09/04/2018 Varicella Zoster Vaccine (Adult) 01/12/2013 Zoster Vaccine Recombinant (Shingrix) 09/11/2018 ,03/13/2018 documented as of this encounter Social History Tobacco Use Types Packs/Day Years Used Date Smoking Tobacco: Never Smokeless Tobacco: Never Comments:no passive smoke Alcohol Use Standard Drinks/Week Comments Not Currently 0 (1 standard drink = 0.6 oz pur e alcohol) PHQ-2 Answer Date Recorded PHQ Adult Total Score 0 03/23/2023 Hunger Vital Sign Answer Date Recorded Within the past 12 months, y ou worried that your food would run out before you got the money to buy more. Never true 03/23/20 22 Within the past 12 months, t he food you bought just didn't last and you didn't have money to get more. Never true 03/23/2022 Sex and Gender Information Value Date Recorded Sex Assigned at Female 09/04/2018 7:04 PM EDT Gender Identity Female 09/04/2018 7:04 PM EDT Sexual Orientation Straight 09/04/2018 7: 04 PM EDT Job Start Date Occupation Industry Not on file Not on file Not on file documented as of this encounter Miscellaneous Notes * Addendum Note - Chaparro Conte RPh - 07/10/2023 3:16 PM EDTAddended by: CHAPARRO CONTE on: 07/10/2023 03:16 PM Modules accepted: Orders * Telephone Encounter - Paola Avalos RP - 02/24/2023 9:23 AM EST Rheumatology Pre-Certification Request Medication/Disease State Information: Diagnosis: Rheumatoid arthritis M06.09 Medication:Simponi Aria (loading and maintenance): 2 mg/kg IV infusion over 30 minutes at weeks 0 and 4, then every 8 weeks Failed or Intolerant to or Contraindicated: Humira, Infliximab, Leflunomide, and Rinvoq Comments Labs pending Required Screening Information: Vaccination(s): Patient has [facility] PCP - plan in place for CDC/ACIP vaccination guidelines usingHealth Maintenance Topics, Best Practice Alerts, and Anticipatory Management Reports within EHR TB Testing: Not completed: Has been ordered and patient notified to have done Hepatitis B Screenings: Not completed: Has been ordered and patient notified to have done Hepatitis C Screenings: Not completed: Has been ordered and patient notified to have done No active, severe, and/or uncontrolled infection Reauthorization: No Rheumatology Office Information: Eviction Specialist: PENNY QUEEN Rheumatology Pharmacist: Carmela Martell Notification to the Clinic Needed: yes Thank you and have a wonderful day, Paola Avalos RPh * Telephone Encounter - Linnette Lobo CRNP - 02/24/2023 8:00 AM EST Rheumatology Education, Pre-Certification, and/or Pharmacist Co-Management Request Medication Education: yes Pre-Certification: [facility]: Pre-cert for Prednisone, DMARDs & IV/IM/SC Osteoporosis Meds ([facility] rheumatology pharmacist pool p [phone]) Pharmacist Co-Management ([facility] ONLY; [place] select "no"): Pharmacist Co- Management - Escalation & Maintenance Medication/Disease State Information: Diagnosis: Osteoporosis without current pathological fracture [M81.0] Medication:Simponi Aria (loading and maintenance): 2 mg/kg IV infusion over 30 minutes at weeks 0 and 4, then every 8 weeks Failed or Intolerant to or Contraindicated: Humira, Infliximab, Leflunomide, and Rinvoq Comments Labs pending Rheumatology Pharmacist Disease Modifying Antirheumatic Drug (DMARD) Co- Management (If Applicable) Minimum frequency patient should be seen in person for medication management: As appropriate per clinical condition and patient status By my signature, I understand that my patient will have [facility]) per established policies, procedures, and protocols. I also certify that this referral may serve as an initiation of service for the management of drug therapy in the above noted patient. [facility] providers will be responsible for scheduling patient visits, obtaining appropriate laboratory studies, and adjusting medication management therapy per patient's need, in addition to those roles spelled out in the clinic policy, procedures, and drug management protocols. I understand that the service provided by the [facility] is voluntary and have informed patient that they can refuse the service at their discretion. I am aware that the [facility] Clinic will provide me with a copy of the patient encounter via my [employer] In-Basket. I authorize the [facility] to carryout these activities on my behalf. I consider this program to be a necessary part of the patient's medical care. BC May documented in this encounter Plan of Treatment Upcoming Encounters Date Type Department Care Team (Late st Contact Info) Description 08/18/2023 1:40 PM EDT Office Visit Nephrology, [address] [address] Alvin Sanchez MD [address] [place] [id number] 09/13/2023 8:30 AM EDT Office Visit Rheumatology [address] [address] Linnette Lobo CRNP [address] [place] [address], [place] [address] 11/15/2023 9:30 AM EDT Nurse Only Ancillary Department, [address] [address] [place], Nurse [address], [place] [phone] 03/27/2024 12:30 PM EST Nurse Only Ancillary Department, [place] [address] [place], [place] [phone] [place], Nurse Annual Wellness [address], [place] [phone] 05/08/2024 7:40 AM EST Office Visit [facility] [address] [place] [facility] [place] [address] Maddi Bill PA-C [address] [facility] [place] [id number] Scheduled Procedures Name Priority Associated Diagnoses Date/Ti me COLONOSCOPY FLEXIBLE PROXIMAL DIAGNOSTIC Recall History of colon polyps Scheduled Referrals Name Type Priority Associated Diagnoses Orde r Schedule PHARMACIST MEDS THERAPY MGMT REFERRAL OP Referral Within 10 days (routine) Rheumatoid arthritis of multiple 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 factor (HCC) Ordered: 02/24/2023 Health Maintenance Due Date Last Done Comments *BISPHONATE OR OTHER ACCEPTABLE MEDICATION NEEDED FOR OSTEOPOROSIS (REFER TO SMARTSET #1146) 06/10/2020 COVID-19 Vaccine ( season) 2022 10/14/2020, 08/14/2020, 07/20/2020 DXA Scan 06/01/2023 06/01/2021, 05/18, 12/26/2018, Additional history exists Hepatitis B (3 of 3 - 19+ 3-dose series) 09/22/2023 05/19/2023, 03/23/2023 GFR 10/27/2023 04/28/2023, 02/15, 05/06/2022, Additional history exists COLONOSCOPY-EVERY 5 YRS AGES 18-100 03/04/2024 03/04/2019, 03/04/2019, 03/03/2014, Additional history exists Depression Screening 03/23/2024 03/23/2023 Albumin/Creatinine Ratio 04/28/2024 04/28/2023, 04/18 CKD HGB USE SMARTSET 54726 04/28/202404/28, 04/28/2023, 02/24/2023, Additional history exists CKD PHOS USE SMARTSET 31191 04/28/202404/17, 05/06/2022, 12/10/2020 HbA1c 04/28/2024 04/28/2023, 04/18, 08/18/2021, Additional history exists Mammogram 06/13/2024 06/13/2023, 05/19, 06/07/2022, Additional history exists Lipid Panel 11/18/2026 11/18/2021, 03/18, 02/25/2019, Additional history exists DTaP,Tdap,and Td Vaccines (3 - Td or Tdap) 03/13/2029 03/13/2019, 09/04/2008 Zoster Vaccines Completed 09/11/2018, 02/16, 01/12/2013 Influenza Vaccine (FLU shot) Completed 12/2022, 02/17/2022, 03/08/2021, Additional history exists VITAMIN D LEVEL ONCE IN A LIFETIME-USE SMARTSET# [id number] Completed 02/24/2023, 05/06/2022, 12/10/2020, Additional history exists Pneumococcal Vaccine: 65+ Years Completed 05/19/2023, 03/13/2019, 03/13/2018, Additional history exists GARDASIL-HPV IMMUNIZATION SERIES Aged Out No longer eligible based on patient's age to complete this topic MENINGOCOCCAL (MENACTRA/MENVEO) Aged Out No longer eligible based on patient's age to complete this topic documented as of this encounter Medical Devices Implanted Type Area Superintendent Job Device Identifier Shelf Expiration Date Model / Serial / Lot Lens Intraoc 19.0 - [id number] Implanted:Qty: 1 on 03/20/2018 by Trent Fermin MD at [facility] Left: Eye [employer] 11/14/2022 [id number] / / [id number] Lens Intraoc 17.0 - [id number] - [id number] Implanted:Qty: 1 on 03/27/2018 by Trent Fermin MD at [facility] Right: Eye [employer] 05/17/2022 [id number] / [id number] / [id number] documented as of this encounter Visit Diagnoses Diagnosis Rheumatoid arthritis of multiple 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
--- OUTSIDE RECORDS SUMMARY | 2023-07-28 23:07 | External Medical Summary | Summary of Care ---
Author Name Unknown Organization [facility] Address [address] [facility] [place] [address] Phone [phone] Care Team Providers Care Food Photographer Name Role Phone Alex Ansari MD Primary Care Provider [phone]- [phone] Reason for Visit * Reason Onset Date Comments Other 07/10/2023 Waiting for simp brain to be available Encounter Details Date Type Department Care Team (Late st Contact Info) Description 07/10/2023 Telephone Rheumatology [facility], Phuong Doherty [address] [place] [address] [place] [phone] Bertha Allred, [address] [place] [address] [place] [phone] Other (Waiting for simponi to be available) Allergies Active Allergy Reactions Criticality Noted Date Comments Environmental 11/12/2007 Mold, mildew, pollen cause itchy eyes, running nose documented as of this encounter (statuses as of 07/24/2023) Medications No known medicationsdocumented as of this encounter (statuses as of 07/24/2023) Active Problems Problem Noted Date Diagnosed Date Major depressive disorder with single episode, i n remission 05/04/2023 HTN, goal below 140/90 05/04/2023 Adjustment disorder with anxious mood 05/03/2022 Major depressive disorder with single episode Chronic kidney disease, stage 3a 09/29/2020 Overview: [...] as of this encounter (statuses as of 07/24/2023) Resolved Problems Problem Noted Date Diagnosed Date Resolved Date Encounter for examination fo r normal comparison and control in clinical research program 08/13/2018 11/18/2019 Overview: DO NOT DELETE [facility] [place] DETECT Study: Project # [id number], Natural Sciences Manager: Parveen Zamudio, PhD. SUMMARY: Goal: Establish test [...] contact study staff at ; after hours Natural Sciences Manager via the [facility] hospital senior system operator . Please contact study team before resolving/deleting from patients problem list. Study phone number: [phone]. Diagnosis changed due to Research Module. Go to Snapshot for study details. Encounter for examination fo r normal comparison and control in clinical research program 08/13/2018 12/16/2021 Overview: DO NOT DELETE - [facility] JERRY Study: Project # [id number], Natural Sciences Manager: Alberto Choi, MS, MPH. SUMMARY: Goal: Establish [...] contact study staff at ; after hours Natural Sciences Manager via the [facility] hospital senior system operator . - Please contact study team before resolving/deleting from patients problem list. Study phone number: [phone]. Diagnosis changed due to Research Module. Go [...] update of inactive term Rheumatoid arthritis of [facility] sites with negative rheumatoid factor 10/30/2008 01/25/2016 [...] as of this encounter (statuses as of 07/24/2023) Immunizations Name Administration Dates Next Due COVID-19 mRNA, LNP-s, No Pre serve, 2-Dose Series (Pfizer) 10/14/2020,08/14/2020,07/20/2020 Hepatitis B, 20+ yrs 05/19/2023,03/23/2023 PPD 03/10/2010,10/27/2008 Pneumococcal Conjugate Vacc, 13 Valent (Prevnar) 03/13/2018 Pneumococcal Conjugate Vacci ne, 20-valent ([id number]) 05/19/2023 Pneumococcal Polysaccharide PPV23 (Pneumovax) 03/13/2019,05/02/2012,02/08/2007 Season [...] as of this encounter Miscellaneous Notes * Telephone Encounter - Edith Sung OSA - 07/24/2023 12:04 PM EDT Called pt and she said " no. No. Not now" She also stated that she is having surgery and doesn't want to do this at this time * Telephone Encounter - Carmela Lara RN - 07/24/2023 10:44 AM EDT Simponi available. Scheduling: please call patient to schedule for 2 hour appt "simjoycei" (Linnette Lobo). Thanks! * Telephone Encounter - Carmela Lara RN - 07/18/2023 4:12 PM EDT Received referral. Signed beacon plan in place. Preet: please advise when simponi is available. Rheum: [place] [phone] when patient is able to be scheduled after surgery. Thanks! * Telephone Encounter - Chaparro Conte RPh - 07/10/2023 12:15 PM EDT Already spoke to Linnette regarding this PA * Telephone Encounter - Bertha Allred DO - 07/10/2023 11:10 AM EDT Message from Linnette Tillman "Hi Dr. Allred I have a patient Nancy Bear . Her auth for Simponi was done on 02/24 and never submitted after. She is very upset and I messaged her back. Iwas just hoping you could see what happen to prevent this from happening in the future. THank you" PharmD, please help expedite pre-auth. Thank you much, ANTONINA documented in this encounter Plan of Treatment Upcoming Encounters Date Type Department Care Team (Late st Contact Info) Description 08/18/2023 1:40 PM EDT Office Visit Nephrology, [address] [address] Alvin Sanchez MD [address] [place] [address] 09/13/2023 8:30 AM EDT Office Visit Rheumatology [address] [place] [address] Linnette Lobo CRNP [address] [place] [address] [place] [address] 11/15/2023 9:30 AM EDT Nurse Only Ancillary Department, [place] [address] [place] [facility] [place] [address] Allyssa Nurse [address] [place], [place] [phone] 03/27/2024 12:30 PM EST Nurse Only Ancillary Department, [place] [address] [place] [facility] [place] [address] Nurse Allyssa Annual Wellness [address] [place] [facility] [place] [address] 05/08/2024 7:40 AM EST Office Visit [facility], [place] [address] [place] [id number] Maddi Bill PA-C [address] [facility] [place] [id number] Scheduled Procedures Name Priority Associated Diagnoses Date/Ti me COLONOSCOPY FLEXIBLE PROXIMAL DIAGNOSTIC Recall History of colon polyps Health Maintenance Due Date Last Done Comments [...] 03/04/2024 03/04/2019, 03/04/2019, 03/03/2014, Additional history exists Albumin/Creatinine Ratio 04/28/2024 04/28/2023, 04/18 CKD HGB USE SMARTSET 35389 04/28/202404/28, 04/28/2023, 02/24/2023, Additional history exists CKD PHOS USE SMARTSET 77409 04/28/202404/17, 05/06/2022, 12/10/2020 HbA1c 04/28/2024 04/28/2023, 04/18, [...] D LEVEL ONCE IN A LIFETIME-USE SMARTSET# 46779 Completed 02/24/2023, 05/06/2022, 12/10/2020, Additional history exists Pneumococcal Vaccine: 65+ Years Completed 05/19/2023, 03/13/2019, 03/13/2018, Additional history exists GARDASIL-HPV IMMUNIZATION SERIES Aged Out No longer eligible based on patient's age to complete this topic MENINGOCOCCAL (MENACTRA/MENVEO) Aged Out No longer eligible based on patient's age to complete this topic documented as of this encounter Medical Devices Implanted Type Area Cloth Weigher Device Identifier Shelf Expiration Date Model / Serial / Lot Lens Intraoc 19.0 - [id number] Implanted:Qty: 1 on 03/20/2018 by Trent Fermin MD at OR [facility] Left: Eye [employer]OM[employer] 11/14/2022 [id number] / / [id number] Lens Intraoc 17.0 - [id number] - [id number] Implanted:Qty: 1 on 03/27/2018 by Trent Fremin MD at OR [facility] Right: Eye [employer]OM[employer] 05/17/2022 [id number] / [id number] / [id number] documented as of this encounter Care Teams Food Photographer Relationship Specialty Start Date End Date Alex Ansari MD [address] [place] [address] PCP - General 01/03/06 documented as of this encounter
--- OUTSIDE RECORDS SUMMARY | 2023-07-28 23:07 | External Medical Summary | Summary of Care ---
Author Name Unknown Organization [facility] Address [address] [facility] [place] [address] Phone [phone] Care Team Providers Care Gameplay Programmer Name Role Phone Alex Ansari MD Primary Care Provider [phone]- [phone] Reason for Visit * Reason Onset Date Comments Other 07/10/2023 Waiting for simp brain to be available Encounter Details Date Type Department Care Team (Late st Contact Info) Description 07/10/2023 Telephone Rheumatology [facility], Phuong Doherty [address] [place] [address] [place] [phone] Bertha Allred, [address] [place] [address] [place] [phone] Other (Waiting for simponi to be available) Allergies Active Allergy Reactions Criticality Noted Date Comments Environmental 11/12/2007 Mold, mildew, pollen cause itchy eyes, running nose documented as of this encounter (statuses as of 07/19/2023) Medications No known medicationsdocumented as of this encounter (statuses as of 07/19/2023) Active Problems Problem Noted Date Diagnosed Date [...] as of this encounter (statuses as of 07/19/2023) Resolved Problems Problem Noted Date Diagnosed Date Resolved Date Encounter for examination fo r normal comparison and control in clinical research program 08/13/2018 11/18/2019 Overview: DO NOT DELETE [facility] DETECT Study: Project # [id number], Bank Teller Machine Mechanic: Parveen Zamudio, PhD. SUMMARY: Goal: Establish test [...] contact study staff at ; after hours Bank Teller Machine Mechanic via the [facility] metal drill operator . Please contact study team before resolving/deleting from patients problem list. Study phone number: [phone]. Diagnosis changed due to Research Module. Go to Snapshot for study details. Encounter for examination fo r normal comparison and control in clinical research program 08/13/2018 12/16/2021 Overview: DO NOT DELETE - [facility] JERRY Study: Project # [id number], Bank Teller Machine Mechanic: Alberto Choi, MS, MPH. SUMMARY: Goal: Establish [...] contact study staff at ; after hours Bank Teller Machine Mechanic via the [facility] metal drill operator . - Please contact study team before resolving/deleting from patients problem list. Study phone number: [phone]. Diagnosis changed due to Research Module. Go [...] update of inactive term Rheumatoid arthritis of [facility] sites with negative rheumatoid factor 10/30/2008 01/25/2016 [...] as of this encounter (statuses as of 07/19/2023) Immunizations Name Administration Dates Next Due COVID-19 mRNA, LNP-s, No Pre serve, 2-Dose Series (Pfizer) 10/14/2020,08/14/2020,07/20/2020 Hepatitis B, 20+ yrs 05/19/2023,03/23/2023 PPD 03/10/2010,10/27/2008 Pneumococcal Conjugate Vacc, 13 Valent (Prevnar) 03/13/2018 Pneumococcal Conjugate Vacci ne, 20-valent ([id number]) 05/19/2023 Pneumococcal Polysaccharide PPV23 (Pneumovax) 03/13/2019,05/02/2012,02/08/2007 Season [...] encounter Miscellaneous Notes * Telephone Encounter - Carmela Lara RN - 07/18/2023 4:12 PM EDT Received referral. Signed beacon plan in place. Preet: please advise when simponi is available. Rheum: [place] [phone] when patient is able to be scheduled [...] very upset and I messaged her back. Iwperez just hoping you could see what happen to prevent this from happening in the future. THank you" PharmD, please help expedite pre-auth. Thank you much, ANTONINA documented in this encounter Plan of Treatment Upcoming Encounters Date Type Department Care Team (Late st Contact Info) Description 08/18/2023 1:40 PM EDT Office Visit Nephrology, [address] [id number] Alvin Sanchez MD [address] [place] [address] [place], [place] [phone] 09/13/2023 8:30 AM EDT Office Visit Rheumatology [address] [place], [place] [address] Linnette Lobo CRNP [address] [place] [address] [place] [address] 11/15/2023 9:30 AM EDT Nurse Only Ancillary Department, [place] [address] [facility], [place] [phone] [place], Nurse [address] [place] [address] 03/27/2024 12:30 PM EST Nurse Only Ancillary Department, [place] [address] [facility], [place] [phone] [place], Nurse Annual Wellness [address] [place] [address] 05/08/2024 7:40 AM EST Office Visit Family [facility], [place] [address] [facility] [place] [address] Maddi Bill PA-C [address] [place] [facility] [place] [address] Scheduled Procedures Name Priority Associated Diagnoses Date/Ti [...] 04/28/2024 04/28/2023, 04/18 CKD HGB USE SMARTSET 38016 04/28/202404/28, 04/28/2023, 02/24/2023, Additional history exists CKD PHOS USE SMARTSET 43522 04/28/202404/17, 05/06/2022, 12/10/2020 HbA1c 04/28/2024 04/28/2023, 04/18, [...] D LEVEL ONCE IN A LIFETIME-USE SMARTSET# 55615 Completed 02/24/2023, 05/06/2022, 12/10/2020, Additional history exists Pneumococcal Vaccine: 65+ Years Completed 05/19/2023, 03/13/2019, 03/13/2018, Additional history exists GARDASIL-HPV IMMUNIZATION SERIES Aged Out No longer eligible based on patient's age to complete this topic MENINGOCOCCAL (MENACTRA/MENVEO) Aged Out No longer eligible based on patient's age to complete this topic documented as of this encounter Medical Devices Implanted Type Area Director Of Plant Operations Device Identifier Shelf Expiration Date Model / Serial / Lot Lens Intraoc 19.0 - [id number] Implanted:Qty: 1 on 03/20/2018 by Trent Fermin MD at OR [facility] Left: Eye [employer] 11/14/2022 [id number] / / [id number] Lens Intraoc 17.0 - [id number] - [id number] Implanted:Qty: 1 on 03/27/2018 by Trent Fermin MD at OR [facility] Right: Eye [employer] LOMB 05/17/2022 [id number] / [id number] / [id number] documented as of this encounter Care Teams Gameplay Programmer Relationship Specialty Start Date End Date Alex Ansari MD [address] [place] [address] PCP - General 01/03/06 documented as of this encounter
--- OUTSIDE RECORDS SUMMARY | 2023-07-28 23:07 | External Medical Summary | Summary of Care ---
Author Name Unknown Organization [facility] Address [address] [place] [address] Phone [phone] Care Team Providers Care Sound Installation Worker Name Role Phone Alex Ansari MD Primary Care Provider [phone]- [phone] Reason for Referral * Evaluate & Treat - Unlimited Visits (Within 10 days (routine)) - Authorized Specialty Diagnoses / Procedures Referred By Catalina austin Referred To Contact Pharmacist / Pharmacy Diagnoses Rheumatoid arthritis of multiple 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 factor (HCC) Linnette Lobo CRNP [address] [place] [address] Referral ID Status Reason Start Date Expiration Date Visits Requested Visits Authorized [id number] Authorized Specialty Services Required 3 99 99 Question Answer Referral Priority Within 10 days (routine) Where should this appointment be scheduled? [facility] Department: Specialist Specialty: Rheum Reason for Referral: Med Education Comments Rheumatology Pharmacist Disease Modifying Antirheumatic Drug (DMARD) Co- Management Referral for: DMARD Other: [facility] Additional Comments: none Minimum frequency patient should be seen in person for medication management: As appropriate per clinical condition and patient status By my signature, I understand that my patient, Nancy Bear will have her medication therapy managed by the [facility] Medication Therapy Disease Management Clinic (MTD) per established policies, procedures, and protocols. I also certify that this referral may serve as an initiation of service for the management of drug therapy in the above noted patient. [facility] providers will be responsible for scheduling patient visits, obtaining appropriate laboratory studies, and adjusting medication management therapy per patient's need, in addition to those roles spelled out in the clinic policy, procedures, and drug management protocols. I understand that the service provided by the [facility] is voluntary and have informed patient that they can refuse the service at their discretion. I am aware that the [facility] Clinic will provide me with a copy of the patient encounter via my Printed Piece In-Basket. I authorize the [facility] to carry out these activities on my behalf. I consider this program to be a necessary part of the patient's medical care. Paola Avalos [facility] Reason for Visit * Reason Onset Date Comments Medication Pre-auth 02/24/2023 Simponi Encounter Details Date Type Department Care Team (Late st Contact Info) Description 02/24/2023 Telephone Rheumatology [facility] [address] [place] [address] Linnette Lobo CRNP [address] [place] [address] Medication Pre-auth (Simponi) Allergies Active Allergy Reactions Criticality Noted Date Comments Environmental 11/12/2007 Mold, mildew, pollen cause itchy eyes, running nose documented as of this encounter (statuses as of 07/14/2023) Medications Medication Sig Dispensed Refills Start Date [...] as of this encounter (statuses as of 07/14/2023) Active Problems Problem Noted Date Diagnosed Date [...] as of this encounter (statuses as of 07/14/2023) Resolved Problems Problem Noted Date Diagnosed Date Resolved Date Encounter for examination fo r normal comparison and control in clinical research program 08/13/2018 11/18/2019 Overview: DO NOT DELETE [facility] DETECT Study: Project # [id number], Transportation Attendant: Parveen Zamudio, PhD. SUMMARY: Goal: Establish test [...] contact study staff at ; after hours Transportation Attendant via the [facility] shotgun shell assembly machine operator . Please contact study team before resolving/deleting from patients problem list. Study phone number: [phone]. Diagnosis changed due to Research Module. Go to Snapshot for study details. Encounter for examination fo r normal comparison and control in clinical research program 08/13/2018 12/16/2021 Overview: [facility] DELETE [facility] Study: Project # [id number], Transportation Attendant: Alberto Choi, MS, MPH. SUMMARY: Goal: Establish [...] contact study staff at ; after hours Transportation Attendant via the [facility] shotgun shell assembly machine operator . - Please contact study team before resolving/deleting from patients problem list. Study phone number: [phone]. Diagnosis changed due to Research Module. Go [...] update of inactive term [facility] with negative rheumatoid factor 10/30/2008 01/25/2016 [...] as of this encounter (statuses as of 07/14/2023) Immunizations Name Administration Dates Next Due COVID-19 mRNA, LNP-s, No Pre serve, 2-Dose Series (Pfizer) 10/14/2020,08/14/2020,07/20/2020 Hepatitis B, 20+ yrs 05/19/2023,03/23/2023 PPD 03/10/2010,10/27/2008 Pneumococcal Conjugate Vacc, 13 Valent (Prevnar) 03/13/2018 Pneumococcal Conjugate Vacci ne, 20-valent ([id number]) 05/19/2023 Pneumococcal Polysaccharide PPV23 (Pneumovax) 03/13/2019,05/02/2012,02/08/2007 Season [...] encounter Miscellaneous Notes * Telephone Encounter - Alicia Smiley CPhT - 07/14/2023 1:15 PM EDT Rheumatology Referral: Infusions or Clinic Administered Medications (CAM) Infusion Approved, New Supportive Care Plan (NSCP) submitted, no action needed Thank you, Alicia Lassiter [facility] Sheet Metal Work Furnace Installer III Centralized Clinical Pharmacy Services (CCPS) (Formerly Telepharmacy) 07/14/2023,1:15 PM Electronically signed by Alicia Smiley [facility] at 07/14/2023 1:15 PM EDT * Addendum Note - Chaparro Conte RP - 07/10/2023 3:16 PM EDTAddended by: CHAPARRO CONTE on: 07/10/2023 03:16 PM Modules accepted: Orders * Telephone Encounter - Paola Avalos [facility] - 02/24/2023 9:23 AM EST Rheumatology Pre-Certification [...] uncontrolled infection Reauthorization: No Rheumatology Office Information: Research Investigator: PENNY QUEEN Rheumatology Pharmacist: Carmela Martell Notification to the Clinic Needed: yes Thank you and have a wonderful day, Paola Avalos RPh * Telephone Encounter - Linnette Lobo CRNP - 02/24/2023 8:00 AM EST Rheumatology Education, Pre-Certification, and/or Pharmacist Co-Management Request Medication Education: yes Pre-Certification: [facility]: Pre-cert for Prednisone, DMARDs & IV/IM/SC Osteoporosis Meds ([facility] rheumatology pharmacist pool p [phone]) Pharmacist Co-Management ([facility] ONLY; West select "no"): [...] will have medication therapy managed by the [facility] Therapy Disease Management Clinic ([facility]) per established policies, procedures, and protocols. I also certify that this referral may serve as an initiation of service for the management of drug therapy in the above noted patient. [facility] providers will be responsible for scheduling patient visits, obtaining appropriate laboratory studies, and adjusting medication management therapy per patient's need, in addition to those roles spelled out in the clinic policy, procedures, and drug management protocols. I understand that the service provided by the [facility] Clinic is voluntary and have informed patient that they can refuse the service at their discretion. I am aware that the [facility] Clinic will provide me with a copy of the patient encounter via my Printed Piece In-Basket. I authorize the [facility] Clinic to carryout these activities on my behalf. I consider this program to be a necessary part of the patient's medical care. BC May documented in this encounter Plan of Treatment Upcoming Encounters Date Type Department Care Team (Late st Contact Info) Description 08/18/2023 1:40 PM EDT Office Visit Nephrology, [address] [address] Alvin Sanchez MD [address] [place] [address] 09/13/2023 8:30 AM EDT Office Visit Rheumatology [address] [place] [address] Linnette Lobo CRNP [address] [place] [address] [place] [address] 11/15/2023 9:30 AM EDT Nurse Only Ancillary Department, [address], [place] [address] [place] [address] [facility] [address] 03/27/2024 12:30 PM EST Nurse Only Ancillary Department, [place] [address] [facility] [address] [place], Nurse Annual Wellness [address] [facility] [address] 05/08/2024 7:40 AM EST Office Visit Family Practice, [place] [address] [facility] [phone] Maddi Bill PA-C [address] [facility] [address] Scheduled Procedures Name Priority Associated Diagnoses Date/Ti [...] 04/28/2024 04/28/2023, 04/18 CKD HGB USE SMARTSET 68843 04/28/202404/28, 04/28/2023, 02/24/2023, Additional history exists CKD PHOS USE SMARTSET 99593 04/28/202404/17, 05/06/2022, 12/10/2020 HbA1c 04/28/2024 04/28/2023, 04/18, [...] D LEVEL ONCE IN A LIFETIME-USE SMARTSET# 28046 Completed 02/24/2023, 05/06/2022, 12/10/2020, Additional history exists Pneumococcal Vaccine: 65+ Years Completed 05/19/2023, 03/13/2019, 03/13/2018, Additional history exists GARDASIL-HPV IMMUNIZATION SERIES Aged Out No longer eligible based on patient's age to complete this topic MENINGOCOCCAL (MENACTRA/MENVEO) Aged Out No longer eligible based on patient's age to complete this topic documented as of this encounter Medical Devices Implanted Type Area Strategic Debriefing Specialist Device Identifier Shelf Expiration Date Model / Serial / Lot Lens Intraoc 19.0 - [id number] Implanted:Qty: 1 on 03/20/2018 by Trent Fermin MD at OR [facility] Left: Eye [employer]USCH [employer] LOMB 11/14/2022 [id number] / / [id number] Lens Intraoc 17.0 - [id number] - [id number] Implanted:Qty: 1 on 03/27/2018 by Trent Fermin MD at OR [facility] Right: Eye BA[employer]CH [employer] LOMB 05/17/2022 [id number] / [id number] / [id number] documented as of this encounter Visit Diagnoses Diagnosis Rheumatoid arthritis of multiple 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 factor (HCC)- Primary Rheumatoid arthritis documented in this encounter Additional Health Concerns Infection Onset Date Last Indicated Resolved Time Respiratory Rule-Out 04/14/2023 04/14/2023 023 7:16 AM EST COVID-19 (confirmed) 04/14/2023 04/14/2023 024 12:20 AM EST documented as of this encounter Care Teams Sound Installation Worker Relationship Specialty Start Date End Date Alex Ansari MD [address] [place], [place] [id number] PCP - General 01/03/06 documented as of this encounter
--- OUTSIDE RECORDS SUMMARY | 2023-07-28 23:07 | External Medical Summary | Summary of Care ---
Author Name Unknown Organization [facility] Address [address] [place] [address] Phone [phone] Care Team Providers Care Casing Cooker Name Role Phone Alex Ansari MD Primary Care Provider +1- [phone] Reason for Referral * Evaluate & Treat - Unlimited Visits (Within 10 days (routine)) - Authorized Specialty Diagnoses / Procedures Referred By Catalina austin Referred To Contact Pharmacist / Pharmacy Diagnoses Rheumatoid arthritis of multiple 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 factor (HCC) Linnette Lobo CRNP [address] [place] [address] Referral ID Status Reason Start Date Expiration Date Visits Requested Visits Authorized [id number] Authorized Specialty Services Required 3 99 99 Question Answer Referral Priority Within 10 days (routine) Where should this appointment be scheduled? [facility] Department: Specialist Specialty: Rheum Reason for Referral: Med Education Comments Rheumatology Pharmacist Disease Modifying Antirheumatic Drug (DMARD) Co- Management Referral for: DMARD Other: [facility] Additional Comments: none Minimum frequency patient should be seen in person for medication management: As appropriate per clinical condition and patient status By my signature, I understand that my patient, Nancy Bear will have her medication therapy managed by the [facility] Medication Therapy Disease Management Clinic (MTD) per established policies, procedures, and protocols. I also certify that this referral may serve as an initiation of service for the management of drug therapy in the above noted patient. [facility] providers will be responsible for scheduling patient visits, obtaining appropriate laboratory studies, and adjusting medication management therapy per patient's need, in addition to those roles spelled out in the clinic policy, procedures, and drug management protocols. I understand that the service provided by the [facility] is voluntary and have informed patient that they can refuse the service at their discretion. I am aware that the [facility] Clinic will provide me with a copy of the patient encounter via my Casual Collective In-Basket. I authorize the [facility] to carry out these activities on my behalf. I consider this program to be a necessary part of the patient's medical care. Paola Avalos [facility] Reason for Visit * Reason Onset Date Comments Medication Pre-auth 02/24/2023 Simponi Encounter Details Date Type Department Care Team (Late st Contact Info) Description 02/24/2023 Telephone Rheumatology [facility] [address] [place] [address] Linnette Lobo CRNP [address] [place] [address] Medication Pre-auth (Simponi) Allergies Active Allergy Reactions Criticality Noted Date Comments Environmental 11/12/2007 Mold, mildew, pollen cause itchy eyes, running nose documented as of this encounter (statuses as of 07/10/2023) Medications Medication Sig Dispensed Refills Start Date [...] as of this encounter (statuses as of 07/10/2023) Active Problems Problem Noted Date Diagnosed Date [...] as of this encounter (statuses as of 07/10/2023) Resolved Problems Problem Noted Date Diagnosed Date Resolved Date Encounter for examination fo r normal comparison and control in clinical research program 08/13/2018 11/18/2019 Overview: DO NOT DELETE [facility] DETECT Study: Project # [id number], Blankbook Stitching Machine Operator: Parveen Zamudio, PhD. SUMMARY: Goal: Establish test [...] contact study staff at ; after hours Blankbook Stitching Machine Operator via the [facility] tamping machine operator road forms . Please contact study team before resolving/deleting from patients problem list. Study phone number: [phone]. Diagnosis changed due to Research Module. Go to Snapshot for study details. Encounter for examination fo r normal comparison and control in clinical research program 08/13/2018 12/16/2021 Overview: DO NOT DELETE [facility] Study: Project # [id number], Blankbook Stitching Machine Operator: Alberto Choi, MS, MPH. SUMMARY: Goal: Establish [...] contact study staff at ; after hours Blankbook Stitching Machine Operator via the [facility] hospital tamping machine operator road forms . - Please contact study team before resolving/deleting from patients problem list. Study phone number: [phone]. Diagnosis changed due to Research Module. Go [...] update of inactive term [facility] with negative rheumatoid factor 10/30/2008 [...] as of this encounter (statuses as of 07/10/2023) Immunizations Name Administration Dates Next Due COVID-19 mRNA, LNP-s, No Pre serve, 2-Dose Series (Pfizer) 10/14/2020,08/14/2020,07/20/2020 Hepatitis B, 20+ yrs 05/19/2023,03/23/2023 PPD 03/10/2010,10/27/2008 Pneumococcal Conjugate Vacc, 13 Valent (Prevnar) 03/13/2018 Pneumococcal Conjugate Vacci ne, 20-valent ([id number]) 05/19/2023 Pneumococcal Polysaccharide PPV23 (Pneumovax) 03/13/2019,05/02/2012,02/08/2007 Season [...] uncontrolled infection Reauthorization: No Rheumatology Office Information: Corrections Unit Supervisor: PENNY QUEEN Rheumatology Pharmacist: Carmela Martell Notification to the Clinic Needed: yes Thank you and have a wonderful day, Paola Avalos RPh * Telephone Encounter - Linnette Lobo CRNP - 02/24/2023 8:00 AM EST Rheumatology Education, Pre-Certification, and/or Pharmacist Co-Management Request Medication Education: yes Pre-Certification: [facility]: Pre-cert for Prednisone, DMARDs & IV/IM/SC Osteoporosis Meds ([facility] rheumatology pharmacist pool p [phone]) Pharmacist Co-Management ([facility] ONLY; West select "no"): [...] [facility]) per established policies, procedures, and protocols. I also certify that this referral may serve as an initiation of service for the management of drug therapy in the above noted patient. [facility] providers will be responsible for scheduling patient visits, obtaining appropriate laboratory studies, and adjusting medication management therapy per patient's need, in addition to those roles spelled out in the clinic policy, procedures, and drug management protocols. I understand that the service provided by the [facility] is voluntary and have informed patient that they can refuse the service at their discretion. I am aware that the [facility] Clinic will provide me with a copy of the patient encounter via my Casual Collective In-Basket. I authorize the [facility] to carryout these activities on my behalf. I consider this program to be a necessary part of the patient's medical care. BC May documented in this encounter Plan of Treatment Upcoming Encounters Date Type Department Care Team (Late st Contact Info) Description 08/18/2023 1:40 PM EDT Office Visit Nephrology, [address] [address] Alvin Sanchez MD [address] [place] [address] 09/13/2023 8:30 AM EDT Office Visit Rheumatology [address] [address] Linnette Lobo CRNP [address] [place] [address], [place] [address] 11/15/2023 9:30 AM EDT Nurse Only Ancillary Department, [address] [address] [place], Nurse [address] [place], [place] [phone] 03/27/2024 12:30 PM EST Nurse Only Ancillary Department, [place] [address] [place], [place] [phone] [place], Nurse Annual Wellness [address] [place], [place] [phone] 05/08/2024 7:40 AM EST Office Visit [facility] [address] [place] [facility] [place] [address] Maddi Bill PA-C [address] [facility] [place] [phone] Scheduled Procedures Name Priority Associated Diagnoses Date/Ti [...] 04/28/2024 04/28/2023, 04/18 CKD HGB USE SMARTSET 81147 04/28/202404/28, 04/28/2023, 02/24/2023, Additional history exists CKD PHOS USE SMARTSET 10274 04/28/202404/17, 05/06/2022, 12/10/2020 HbA1c 04/28/2024 04/28/2023, 04/18, [...] D LEVEL ONCE IN A LIFETIME-USE SMARTSET# 31604 Completed 02/24/2023, 05/06/2022, 12/10/2020, Additional history exists Pneumococcal Vaccine: 65+ Years Completed 05/19/2023, 03/13/2019, 03/13/2018, Additional history exists GARDASIL-HPV IMMUNIZATION SERIES Aged Out No longer eligible based on patient's age to complete this topic MENINGOCOCCAL (MENACTRA/MENVEO) Aged Out No longer eligible based on patient's age to complete this topic documented as of this encounter Medical Devices Implanted Type Area Mechanical Press Operator Device Identifier Shelf Expiration Date Model / Serial / Lot Lens Intraoc 19.0 - [id number] Implanted:Qty: 1 on 03/20/2018 by Trent Fermin MD at OR [facility] Left: Eye [employer]CH [employer] LOMB 11/14/2022 [id number] / / [id number] Lens Intraoc 17.0 - [id number] - [id number] Implanted:Qty: 1 on 03/27/2018 by Trent Fermin MD at OR [facility] Right: Eye BAUSCH & LOMB 05/17/2022 [id number] / [id number] / [id number] documented as of this encounter Visit Diagnoses Diagnosis Rheumatoid arthritis of multiple 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 factor (HCC)- Primary Rheumatoid arthritis documented in this encounter Additional Health Concerns Infection Onset Date Last Indicated Resolved Time Respiratory Rule-Out 04/14/2023 04/14/2023 023 7:16 AM EST COVID-19 (confirmed) 04/14/2023 04/14/2023 024 12:20 AM EST documented as of this encounter Care Teams Casing Cooker Relationship Specialty Start Date End Date Alex Ansari MD [address] [place] [address] PCP - General 01/03/06 documented as of this encounter
--- OUTSIDE RECORDS SUMMARY | 2023-07-28 23:07 | External Medical Summary | Summary of Care ---
Author Name Unknown Organization [facility] Address [address] [place] [address] Phone [phone] Care Team Providers Care Washroom Operator Name Role Phone Alex Ansari MD Primary Care Provider +1- [phone] Encounter Details Date Type Department Care Team (Late st Contact Info) Description 07/11/2023 Orders Only [facility] [address] [facility] [place] [address] Linnette Lobo CRNP [facility] [place] [address] Allergies Active Allergy Reactions Criticality Noted Date Comments Environmental 11/12/2007 Mold, mildew, pollen cause itchy eyes, running nose documented as of this encounter (statuses as of 07/11/2023) Medications No known medicationsdocumented as of this [...] program 08/13/2018 11/18/2019 Overview: DO NOT DELETE [facility] DETECT Study: Project # [id number], Stripping Machine Operator: Parveen Zamudio, PhD. SUMMARY: Goal: [...] contact study staff at ; after hours Stripping Machine Operator via the [facility] tool profiling machine set up operator . Please contact study team before resolving/deleting from patients problem list. Study phone number: [phone]. Diagnosis changed due to Research Module. Go to Snapshot for study details. Encounter for examination fo r normal comparison and control in clinical research program 08/13/2018 12/16/2021 Overview: DO NOT DELETE - [facility] DETECT Study: Project # [id number], Stripping Machine Operator: Alberto Choi, MS, MPH. SUMMARY: [...] contact study staff at ; after hours Stripping Machine Operator via the [facility] tool profiling machine set up operator . - Please contact study team before resolving/deleting from patients problem list. Study phone number: [phone]. Diagnosis changed due to Research Module. Go [...] update of inactive term Rheumatoid arthritis of [facility] sites with negative rheumatoid factor 10/30/2008 01/25/2016 [...] mRNA, LNP-s, No Pre serve, 2-Dose Series ([email or web address]) 10/14/2020,08/14/2020,07/20/2020 Hepatitis B, 20+ yrs 05/19/2023,03/23/2023 PPD 03/10/2010,10/27/2008 Pneumococcal Conjugate Vacc, 13 Valent (Prevnar) 03/13/2018 Pneumococcal Conjugate Vacci ne, 20-valent ([id number]) 05/19/2023 Pneumococcal Polysaccharide PPV23 (Pneumovax) 03/13/2019,05/02/2012,02/08/2007 Season Influenza, Quad, PF, Adjuvanted, 65+ Yrs, IM (FLUAD) 01/23/2020 Seasonal Influenza, PF, 6 M & above, IM , (FluLaval or Fluzone) 01/28/2019,03/13/2018 Seasonal Influenza, Quadriva lent Hd (Fluzone Hd) 02/23/2023,02/17/2022,03/08/2021 Seasonal Influenza, Split, I IV3, With Preserve, Inj 01/11/2016,02/19/2015,01/15/2014,12/17,01/13/2012,01/28/2011,01/18/20 11(Deferred: Patient Refused - will get vaccine at work),01/08/2010,12/23/2008, 8,01/29/2006 12/23/2009 Seasonal Influenza, Trivalen t, High Dose, [...] on file documented as of this encounter Plan of Treatment Upcoming Encounters Date Type Department Care Team (Late st Contact Info) Description 08/18/2023 1:40 PM EDT Office Visit Nephrology, [address] [address] Alvin Sanchez MD [address] [place] [address] 09/13/2023 8:30 AM EDT Office Visit Rheumatology [address] [address] Linnette Lobo CRNP [address] [place], [place] [address] [address] 11/15/2023 9:30 AM EDT Nurse Only Ancillary Department, [place] [address] [facility] [address] [place] [address] [facility] [address] 03/27/2024 12:30 PM EST Nurse Only Ancillary Department, [place] [address] [facility] [address] [place], Nurse Annual Wellness [address] [facility] [phone] 05/08/2024 7:40 AM EST Office Visit Family Practice, [place] [address] [facility] [phone] Maddi Bill PARuthannC [address] [place] [address] Scheduled Procedures Name Priority Associated Diagnoses Date/Ti [...] 04/28/2024 04/28/2023, 04/18 CKD HGB USE SMARTSET 17268 04/28/202404/28, 04/28/2023, 02/24/2023, Additional history exists CKD PHOS USE SMARTSET 23077 04/28/202404/17, 05/06/2022, 12/10/2020 HbA1c 04/28/2024 04/28/2023, 04/18, [...] D LEVEL ONCE IN A LIFETIME-USE SMARTSET# 20876 Completed 02/24/2023, 05/06/2022, 12/10/2020, Additional history exists Pneumococcal Vaccine: 65+ Years Completed 05/19/2023, 03/13/2019, 03/13/2018, Additional history exists GARDASIL-HPV IMMUNIZATION SERIES Aged Out No longer eligible based on patient's age to complete this topic MENINGOCOCCAL (MENACTRA/MENVEO) Aged Out No longer eligible based on patient's age to complete this topic documented as of this encounter Medical Devices Implanted Type Area Welt Stitch Cleaner Device Identifier Shelf Expiration Date Model / Serial / Lot Lens Intraoc 19.0 - [id number] Implanted:Qty: 1 on 03/20/2018 by Trent Fermin MD at OR [facility] Left: Eye [employer]USCH [employer] LOMB 11/14/2022 [id number] / / [id number] Lens Intraoc 17.0 - [id number] - [id number] Implanted:Qty: 1 on 03/27/2018 by Trent Fermin MD at OR [facility] Right: Eye BAUSCH & LOMB 05/17/2022 [id number] / [id number] / [id number] documented as of this encounter Care Teams Washroom Operator Relationship Specialty Start Date End Date Alex Ansari MD [address] [place] [address] PCP - General 01/03/06 documented as of this encounter
--- OUTSIDE RECORDS SUMMARY | 2023-07-28 23:07 | External Medical Summary | Summary of Care ---
Author Name Unknown Organization [facility] Address [address] [place] [address] Phone [phone] Care Team Providers Care Sharepoint Analyst Name Role Phone Alex Ansari MD Primary Care Provider +1- [phone] Reason for Referral * Evaluate & Treat - Unlimited Visits (Within 10 days (routine)) - Authorized Specialty Diagnoses / Procedures Referred By Catalina austin Referred To Contact Pharmacist / Pharmacy Diagnoses Rheumatoid arthritis of multiple 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 factor (HCC) Linnette Lobo CRNP [address] [place] [address] Referral ID Status Reason Start Date Expiration Date Visits Requested Visits Authorized [id number] Authorized Specialty Services Required 3 99 99 Question Answer Referral Priority Within 10 days (routine) Where should this appointment be scheduled? [facility] Department: Specialist Specialty: Rheum Reason for Referral: Med Education Comments Rheumatology Pharmacist Disease Modifying Antirheumatic Drug (DMARD) Co- Management Referral for: DMARD Other: simponi [facility] Additional Comments: none Minimum frequency patient should be seen in person for medication management: As appropriate per clinical condition and patient status By my signature, I understand that my patient, Nancy Bear will have her medication therapy managed by the [facility] Medication Therapy Disease Management Clinic (MTD) per established policies, procedures, and protocols. I also certify that this referral may serve as an initiation of service for the management of drug therapy in the above noted patient. [facility] providers will be responsible for scheduling patient visits, obtaining appropriate laboratory studies, and adjusting medication management therapy per patient's need, in addition to those roles spelled out in the clinic policy, procedures, and drug management protocols. I understand that the service provided by the [facility] is voluntary and have informed patient that they can refuse the service at their discretion. I am aware that the [facility] Clinic will provide me with a copy of the patient encounter via my [employer] In-Basket. I authorize the [facility] to carry out these activities on my behalf. I consider this program to be a necessary part of the patient's medical care. Paola Avalos [facility] Reason for Visit * Reason Onset Date Comments Medication Pre-auth 02/24/2023 Simponi Encounter Details Date Type Department Care Team (Late st Contact Info) Description 02/24/2023 Telephone Rheumatology [facility] [address] [place] [address] Linnette Loob CRNP [address] [place] [address] Medication Pre-auth (Simponi) Allergies Active Allergy [...] program 08/13/2018 11/18/2019 Overview: DO NOT DELETE [facility] DETECT Study: Project # [id number], Auto Striper: Parveen Zamudio, PhD. SUMMARY: Goal: Establish test [...] contact study staff at ; after hours Auto Striper via the [facility] pump room operator . Please contact study team before resolving/deleting from patients problem list. Study phone number: [phone]. Diagnosis changed due to Research Module. Go to Snapshot for study details. Encounter for examination fo r normal comparison and control in clinical research program 08/13/2018 12/16/2021 Overview: [facility] Study: Project # [id number], Auto Striper: Alberto Choi, MS, MPH. SUMMARY: Goal: Establish [...] contact study staff at ; after hours Auto Striper via the [facility] hospital pump room operator . - Please contact study team before resolving/deleting from patients problem list. Study phone number: [phone]. Diagnosis changed due to Research Module. Go [...] update of inactive term Rhe[facility] of [facility] sites with negative rheumatoid factor 10/30/2008 [...] No Pre serve, 2-Dose Series (Pfizer) 10/14/2020,08/14/2020,07/20/2020 PPD 03/10/2010,10/27/2008 Pneumococcal Conjugate Vacc, 13 Valent (Prevnar) 03/13/2018 Pneumococcal Polysaccharide PPV23 (Pneumovax) 03/13/2019,05/02/2012,02/08/2007 Season Influenza, [...] encounter Miscellaneous Notes * Telephone Encounter - Paola Avalos RPh - 02/24/2023 9:23 AM EST Rheumatology Pre-Certification Request Medication/Disease State Information: Diagnosis: Rheumatoid arthritis M06.09 Medication:Simponi Aria (loading and maintenance): 2 mg/kg IV infusion over 30 minutes at weeks 0 and 4, then every 8 weeks Failed or Intolerant to or Contraindicated: Humira, Infliximab, Leflunomide, and Rinvoq Comments Labs pending Required Screening Information: Vaccination(s): Patient has [facility] PCP - plan in place for CDC/ACIP [...] uncontrolled infection Reauthorization: No Rheumatology Office Information: Garage Hand: PENNY QUEEN Rheumatology Pharmacist: Carmela Martell Notification to the Clinic Needed: yes Thank you and have a wonderful day, Paola Avalos RPh * Telephone Encounter - Linnette Lobo CRNP - 02/24/2023 8:00 AM EST Rheumatology Education, Pre-Certification, and/or Pharmacist Co-Management Request Medication Education: yes Pre-Certification: [facility]: Pre-cert for Prednisone, DMARDs & IV/IM/SC Osteoporosis Meds ([facility] rheumatology pharmacist pool p [id number]) Pharmacist Co-Management ([facility] ONLY; [place] select "no"): Pharmacist Co- Management [...] will have medication [facility]) per established policies, procedures, and protocols. I also certify that this referral may serve as an initiation of service for the management of drug therapy in the above noted patient. [facility] providers will be responsible for scheduling patient visits, obtaining appropriate laboratory studies, and adjusting medication management therapy per patient's need, in addition to those roles spelled out in the clinic policy, procedures, and drug management protocols. I understand that the service provided by the [facility] Clinic is voluntary and have informed patient that they can refuse the service at their discretion. I am aware that the [facility] Clinic will provide me with a copy of the patient encounter via my [employer] In-Basket. I authorize the [facility] Clinic to carryout these activities on my behalf. I consider this program to be a necessary part of the patient's medical care. BC May documented in this encounter Plan of Treatment Upcoming Encounters Date Type Department Care Team (Late st Contact Info) Description 08/18/2023 1:40 PM EDT Office Visit Nephrology, [address] [address] Alvin Sanchez MD [address] [place] [address] 09/13/2023 8:30 AM EDT Office Visit Rheumatology [address] [address] Linnette Lobo CRNP [address] [place], [place] [address] [address] 11/15/2023 9:30 AM EDT Nurse Only Ancillary Department, [place] [address] [place] [address] [place], Nurse [address] [place] [address] 03/27/2024 12:30 PM EST Nurse Only Ancillary Department, [place] [address] [facility] [place] [address] [place], Nurse Annual Wellness [address] [place] [address] 05/08/2024 7:40 AM EST Office Visit Family [facility], [place] [address] [facility] [place] [phone] Maddi Bill PA-C [address] [facility], [place] [phone] Scheduled Procedures Name Priority Associated Diagnoses Date/Ti [...] 04/28/2024 04/28/2023, 04/18 CKD HGB USE SMARTSET 09762 04/28/202404/28, 04/28/2023, 02/24/2023, Additional history exists CKD PHOS USE SMARTSET 88485 04/28/202404/17, 05/06/2022, 12/10/2020 HbA1c 04/28/2024 04/28/2023, 04/18, [...] D LEVEL ONCE IN A LIFETIME-USE SMARTSET# 99729 Completed 02/24/2023, 05/06/2022, 12/10/2020, Additional history exists Pneumococcal Vaccine: 65+ Years Completed 05/19/2023, 03/13/2019, 03/13/2018, Additional history exists GARDASIL-HPV IMMUNIZATION SERIES Aged Out No longer eligible based on patient's age to complete this topic MENINGOCOCCAL (MENACTRA/MENVEO) Aged Out No longer eligible based on patient's age to complete this topic documented as of this encounter Medical Devices Implanted Type Area Financial Analyst Accountant Device Identifier Shelf Expiration Date Model / Serial / Lot Lens Intraoc 19.0 - [id number] Implanted:Qty: 1 on 03/20/2018 by Trent Fermin MD at OR [facility] Left: Eye BAUSCH [employer] LOMB 11/14/2022 [id number] / / [id number] Lens Intraoc 17.0 - [id number] - [id number] Implanted:Qty: 1 on 03/27/2018 by Trent Fermin MD at OR [facility] Right: Eye BAUSCH & LOMB 05/17/2022 [id number] / [id number] / [id number] documented as of this encounter Visit Diagnoses Diagnosis Rheumatoid arthritis of multiple 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 factor (HCC)- Primary Rheumatoid arthritis documented in this encounter Additional Health Concerns Infection Onset Date Last Indicated Resolved Time Respiratory Rule-Out 04/14/2023 04/14/2023 023 7:16 AM EST COVID-19 (confirmed) 04/14/2023 04/14/2023 024 12:20 AM EST documented as of this encounter Care Teams Sharepoint Analyst Relationship Specialty Start Date End Date Alex Ansari MD [address] [place] [address] PCP - General 01/03/06 documented as of this encounter
--- OUTSIDE RECORDS SUMMARY | 2023-07-28 23:07 | External Medical Summary | Summary of Care ---
Author Name Unknown Organization [facility] Address [address] [facility] [place] [address] Phone [phone] Care Team Providers Care Machine Accountant Name Role Phone Alex Ansari MD Primary Care Provider +1- [phone] Reason for Visit * Reason Onset Date Comments Other 07/10/2023 Waiting for simp brain to be available Encounter Details Date Type Department Care Team (Late st Contact Info) Description 07/10/2023 Telephone Rheumatology [facility], Phuong Doherty [address] [place] [address] [place] [address] Bertha Allred, [address] [place] [address] [place] [address] Other (Waiting for simponi [...] [facility] DET[facility] Study: Project # [id number], Solder Leveler Printed Circuit Boards: Parveen Zamudio, PhD. SUMMARY: Goal: Establish test [...] contact study staff at ; after hours Solder Leveler Printed Circuit Boards via the [facility] outboard motorboat operator . Please contact study team before resolving/deleting from patients problem list. Study phone number: [phone]. Diagnosis changed due to Research Module. Go to Snapshot for study details. Encounter for examination fo r normal comparison and control in clinical research program 08/13/2018 12/16/2021 Overview: DO NOT DELETE - [facility] JERRY Study: Project # [id number], Solder Leveler [employer]ed [employer] Boards: Alberto Choi, MS, MPH. SUMMARY: Goal: Establish [...] contact study staff at ; after hours Solder Leveler [employer] Boards via the [facility] outboard motorboat operator . - Please contact study team before resolving/deleting from patients problem list. Study phone number: [phone]. Diagnosis changed due to Research Module. Go [...] update of inactive term Rheumatoid arthritis of [facility] sites with negative rheumatoid factor 10/30/2008 01/25/2016 [...] (Prevnar) 03/13/2018 Pneumococcal Conjugate Vacci ne, 20-valent ([id number]) 05/19/2023 Pneumococcal Polysaccharide PPV23 (Pneumovax) 03/13/2019,05/02/2012,02/08/2007 Season [...] is available. Rheum: [place] [phone] when patient is able to be scheduled [...] 08/18/2023 1:40 PM EDT Office Visit Nephrology, [address] [address] Alvin Sanchez MD [address] [place] [address] 09/13/2023 8:30 AM EDT Office Visit Rheumatology [address] [place] [address] Linnette Lobo CRNP [address] [place] [address] [place] [address] 11/15/2023 9:30 AM EDT Nurse Only Ancillary Department, [place] [address] [facility] [place] [address] Allyssa Nurse [address] [place], [place] [phone] 03/27/2024 12:30 PM EST Nurse Only Ancillary Department, [place] [address] [facility] [place] [address] Nurse Allyssa Annual Wellness [address] [place] [facility] [place] [address] 05/08/2024 7:40 AM EST Office Visit [facility], [place] [address] [place] [phone] Maddi Bill PA-C [address] [facility] [place] [id number] Scheduled Procedures Name Priority Associated Diagnoses Date/Ti [...] 04/28/2024 04/28/2023, 04/18 CKD HGB USE SMARTSET 06097 04/28/202404/28, 04/28/2023, 02/24/2023, Additional history exists CKD PHOS USE SMARTSET 27011 04/28/202404/17, 05/06/2022, 12/10/2020 HbA1c 04/28/2024 04/28/2023, 04/18, [...] D LEVEL ONCE IN A LIFETIME-USE SMARTSET# 18625 Completed 02/24/2023, 05/06/2022, 12/10/2020, Additional history exists Pneumococcal Vaccine: 65+ Years Completed 05/19/2023, 03/13/2019, 03/13/2018, Additional history exists GARDASIL-HPV IMMUNIZATION SERIES Aged Out No longer eligible based on patient's age to complete this topic MENINGOCOCCAL (MENACTRA/MENVEO) Aged Out No longer eligible based on patient's age to complete this topic documented as of this encounter Medical Devices Implanted Type Area Social Security Assessor Device Identifier Shelf Expiration Date Model / Serial / Lot Lens Intraoc 19.0 - [id number] Implanted:Qty: 1 on 03/20/2018 by Trent Fermin MD at OR [facility] Left: Eye BAUSCH [employer] LOMB 11/14/2022 [id number] / / [id number] Lens Intraoc 17.0 - [id number] - [id number] Implanted:Qty: 1 on 03/27/2018 by Trent Fermin MD at OR [facility] Right: Eye BAUSCH & LOMB 05/17/2022 [id number] / [id number] / [id number] documented as of this encounter Care Teams Machine Accountant Relationship Specialty Start Date End Date Alex Ansari MD [address] [place] [address] PCP - General 01/03/06 documented as of this encounter
--- OUTSIDE RECORDS SUMMARY | 2023-07-28 23:07 | External Medical Summary | Summary of Care ---
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 [facility] Department: Specialist Specialty: Rheum Reason for Referral: Med Education Comments Rheumatology Pharmacist Disease Modifying Antirheumatic Drug (DMARD) Co- Management Referral for: DMARD Other: simponi [facility] Additional Comments: none Minimum frequency patient should be seen in person for medication management: As appropriate per clinical condition and patient status By my signature, I understand that my patient, Nancy Bear will have her medication therapy managed by the [facility] Medication Therapy Disease Management Clinic (MTD) per established policies, procedures, and protocols. I also certify that this referral may serve as an initiation of service for the management of drug therapy in the above noted patient. [facility] providers will be responsible for scheduling patient visits, obtaining appropriate laboratory studies, and adjusting medication management therapy per patient's need, in addition to those roles spelled out in the clinic policy, procedures, and drug management protocols. I understand that the service provided by the [facility] is voluntary and have informed patient that they can refuse the service at their discretion. I am aware that the [facility] Clinic will provide me with a copy of the patient encounter via my Nanosolar In-Basket. I authorize the [facility] to carry out these activities on my behalf. I consider this program to be a necessary part of the patient's medical care. Paola Avalos [facility] Reason for Visit * Reason Onset Date Comments Medication Pre-auth 02/24/2023 Simponi Encounter Details Date Type Department Care Team (Late st Contact Info) Description 02/24/2023 Telephone Rheumatology [facility] [address] [place] [address] Linnette Lobo CRNP [address] [place] [address] Medication Pre-auth (Simponi) Allergies Active Allergy [...] stage 3a 09/29/2020 Overview: Per CKD protocol ZRAI (obstructive sleep apnea) 02/10/2020 Nocturnal hypoxemia 02/10/2020 [...] [facility] DETECT Study: Project # [id number], Bargeman: Parveen Zamudio, PhD. SUMMARY: Goal: Establish test [...] contact study staff at ; after hours Bargeman via the [facility] open developer operator . Please contact study team before resolving/deleting from patients problem list. Study phone number: [phone]. Diagnosis changed due to Research Module. Go to Snapshot for study details. Encounter for examination fo r normal comparison and control in clinical research program 08/13/2018 12/16/2021 Overview: DO NOT DELETE - [facility] JERRY Study: Project # [id number], Bargeman: Alberto Choi, MS, MPH. SUMMARY: Goal: Establish [...] contact study staff at ; after hours Bargeman via the [facility] open developer operator . - Please contact study team before resolving/deleting from patients problem list. Study phone number: [phone]. Diagnosis changed due to Research Module. Go [...] update of inactive term Rheumatoid arthritis of [facility] sites with negative rheumatoid factor 10/30/2008 01/25/2016 [...] (Prevnar) 03/13/2018 Pneumococcal Conjugate Vacci ne, 20-valent ([id number]) 05/19/2023 Pneumococcal Polysaccharide PPV23 (Pneumovax) 03/13/2019,05/02/2012,02/08/2007 Season [...] uncontrolled infection Reauthorization: No Rheumatology Office Information: Financial Planning Assistant: PENNY QUEEN Rheumatology Pharmacist: Carmela Martell Notification to the Clinic Needed: yes Thank you and have a wonderful day, Paola Avalos RPh * Telephone Encounter - Linnette Lobo CRNP - 02/24/2023 8:00 AM EST Rheumatology Education, Pre-Certification, and/or Pharmacist Co-Management Request Medication Education: yes Pre-Certification: [facility]: Pre-cert for Prednisone, DMARDs & IV/IM/SC Osteoporosis Meds ([facility] rheumatology pharmacist pool p [phone]) Pharmacist Co-Management ([facility] ONLY; [place] select "no"): [...] [facility]) per established policies, procedures, and protocols. I also certify that this referral may serve as an initiation of service for the management of drug therapy in the above noted patient. [facility] providers will be responsible for scheduling patient visits, obtaining appropriate laboratory studies, and adjusting medication management therapy per patient's need, in addition to those roles spelled out in the clinic policy, procedures, and drug management protocols. I understand that the service provided by the [facility] is voluntary and have informed patient that they can refuse the service at their discretion. I am aware that the [facility] Clinic will provide me with a copy of the patient encounter via my Nanosolar In-Basket. I authorize the [facility] to carryout these activities on my behalf. I consider this program to be a necessary part of the patient's medical care. BC May documented in this encounter Plan of Treatment Upcoming Encounters Date Type Department Care Team (Late st Contact Info) Description 08/18/2023 1:40 PM EDT Office Visit Nephrology, [address] [address] Alvin Sanchez MD [address] [place] [address] 09/13/2023 8:30 AM EDT Office Visit Rheumatology [address] [address] Linnette Lobo CRNP [address] [place] [address], [place] [address] 11/15/2023 9:30 AM EDT Nurse Only Ancillary Department, [address] [address] [place], Nurse [address] [place], [place] [phone] 03/27/2024 12:30 PM EST Nurse Only Ancillary Department, [place] [address] [place], [place] [address] [place], Nurse Annual Wellness [address], [place] [phone] 05/08/2024 7:40 AM EST [facility] Visit [facility] [address] [place] [address] Maddi Bill PA-C [address] [facility] [place] [id number] Scheduled Procedures Name Priority Associated Diagnoses Date/Ti [...] 04/28/2024 04/28/2023, 04/18 CKD HGB USE SMARTSET 79538 04/28/202404/28, 04/28/2023, 02/24/2023, Additional history exists CKD PHOS USE SMARTSET 89058 04/28/202404/17, 05/06/2022, 12/10/2020 HbA1c 04/28/2024 04/28/2023, 04/18, [...] D LEVEL ONCE IN A LIFETIME-USE SMARTSET# 55590 Completed 02/24/2023, 05/06/2022, 12/10/2020, Additional history exists Pneumococcal Vaccine: 65+ Years Completed 05/19/2023, 03/13/2019, 03/13/2018, Additional history exists GARDASIL-HPV IMMUNIZATION SERIES Aged Out No longer eligible based on patient's age to complete this topic MENINGOCOCCAL (MENACTRA/MENVEO) Aged Out No longer eligible based on patient's age to complete this topic documented as of this encounter Medical Devices Implanted Type Area Vendor Specialist Device Identifier Shelf Expiration Date Model / Serial / Lot Lens Intraoc 19.0 - [id number] Implanted:Qty: 1 on 03/20/2018 by Trent Fermin MD at OR [facility] Left: Eye [employer]USCH [employer] LOMB 11/14/2022 [id number] / / [id number] Lens Intraoc 17.0 - [id number] - [id number] Implanted:Qty: 1 on 03/27/2018 by Trent Fermin MD at OR [facility] Right: Eye BAUSCH & LOMB 05/17/2022 [id number] / [id number] / [id number] documented as of this encounter Visit Diagnoses Diagnosis Rheumatoid arthritis of multiple 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 factor (HCC)- Primary Rheumatoid arthritis documented in this encounter Additional Health Concerns Infection Onset Date Last Indicated Resolved Time Respiratory Rule-Out 04/14/2023 04/14/2023 023 7:16 AM EST COVID-19 (confirmed) 04/14/2023 04/14/2023 024 12:20 AM EST documented as of this encounter Care Teams Fire Safety Director Relationship Specialty Start Date End Date Alex Ansari MD [address] [place] [address] PCP - General 01/03/06 documented as of this encounter
--- OUTSIDE RECORDS SUMMARY | 2023-07-28 23:07 | External Medical Summary | Summary of Care ---
Author Name Unknown Organization [facility] Address [address] [facility] [place] [address] Phone [phone] Care Team Providers Care Php Web Developer Name Role Phone Alex Ansari MD Primary Care Provider +1- [phone] Reason for Visit * Reason Onset Date Comments Other 07/10/2023 Waiting for simp brain to be available Encounter Details Date Type Department Care Team (Late st Contact Info) Description 07/10/2023 Telephone Rheumatology [facility], Phuong Doherty [address] [place] [address] [place] [phone] Bertha Allred, [address] [place] [address] [place] [phone] Other (Waiting for simponi [...] program 08/13/2018 11/18/2019 Overview: DO NOT DELETE [facility] DETECT Study: Project # [id number], Printing Technician: Parveen Zamudio, PhD. SUMMARY: Goal: Establish test [...] contact study staff at ; after hours Printing Technician via the [facility] hospital pouch making machine operator . Please contact study team before resolving/deleting from patients problem list. Study phone number: [phone]. Diagnosis changed due to Research Module. Go to Snapshot for study details. Encounter for examination fo r normal comparison and control in clinical research program 08/13/2018 12/16/2021 Overview: DO NOT DELETE - [facility] JERRY Study: Project # [id number], Printing Technician: Alberto Choi, MS, MPH. SUMMARY: Goal: Establish [...] contact study staff at ; after hours Printing Technician via the [facility] hospital pouch making machine operator . - Please contact study team before resolving/deleting from patients problem list. Study phone number: [phone]. Diagnosis changed due to Research Module. Go [...] update of inactive term Rheumatoid arthritis of [facility] sites with negative rheumatoid factor 10/30/2008 01/25/2016 [...] (Prevnar) 03/13/2018 Pneumococcal Conjugate Vacci ne, 20-valent ([id number]) 05/19/2023 Pneumococcal Polysaccharide PPV23 (Pneumovax) 03/13/2019,05/02/2012,02/08/2007 Season [...] patient to schedule for 2 hour appt "simponi" (Linnette Lobo). Thanks! * Telephone Encounter - Carmela Lara RN - 07/18/2023 4:12 PM EDT Received referral. Signed beacon plan in place. Preet: please advise when simponi is available. Rheum: [place] [address] when patient is able to be scheduled [...] 08/18/2023 1:40 PM EDT Office Visit Nephrology, [address] [phone] Alvin Sanchez MD [address] [place] [id number] 09/13/2023 8:30 AM EDT Office Visit Rheumatology [address], [place] [address] Linnette Lobo CRNP [address] [place], [place] [address] [address] 11/15/2023 9:30 AM EDT Nurse Only Ancillary Department, [place] [address] [address] [facility], [place] [phone] [place], Nurse [address] [place] [facility] [place] [address] 03/27/2024 12:30 PM EST Nurse Only Ancillary Department, [place] [address] [facility], [place] [phone] [place], Nurse Annual Wellness [address] [facility], [place] [phone] 05/08/2024 7:40 AM EST Office Visit Family [facility], [place] [address] [place] [facility] [place] [address] Maddi Bill, PA-C [address] [facility], [place] [phone] Scheduled Procedures Name Priority Associated Diagnoses Date/Ti [...] 04/28/2024 04/28/2023, 04/18 CKD HGB USE SMARTSET 54086 04/28/202404/28, 04/28/2023, 02/24/2023, Additional history exists CKD PHOS USE SMARTSET 28158 04/28/202404/17, 05/06/2022, 12/10/2020 HbA1c 04/28/2024 04/28/2023, 04/18, [...] D LEVEL ONCE IN A LIFETIME-USE SMARTSET# 36883 Completed 02/24/2023, 05/06/2022, 12/10/2020, Additional history exists Pneumococcal Vaccine: 65+ Years Completed 05/19/2023, 03/13/2019, 03/13/2018, Additional history exists GARDASIL-HPV IMMUNIZATION SERIES Aged Out No longer eligible based on patient's age to complete this topic MENINGOCOCCAL (MENACTRA/MENVEO) Aged Out No longer eligible based on patient's age to complete this topic documented as of this encounter Medical Devices Implanted Type Area District Administrator Device Identifier Shelf Expiration Date Model / Serial / Lot Lens Intraoc 19.0 - [id number] Implanted:Qty: 1 on 03/20/2018 by Trent Fermin MD at OR [facility] Left: Eye [employer]CH [employer] LOMB 11/14/2022 [id number] / / [id number] Lens Intraoc 17.0 - [id number] - [id number] Implanted:Qty: 1 on 03/27/2018 by Trent Fermin MD at OR [facility] Right: Eye BAUSCH [employer] LOMB 05/17/2022 [id number] / [id number] / [id number] documented as of this encounter Care Teams Php Web Developer Relationship Specialty Start Date End Date Alex Ansari MD [address] [place] [address] PCP - General 01/03/06 documented as of this encounter
--- OUTSIDE RECORDS SUMMARY | 2023-07-28 23:07 | External Medical Summary | Summary of Care ---
Author Name Unknown Organization [facility] Address [address] [place] [facility] [place] [address] Phone [phone] Care Team Providers Care Stenographic Court Reporter Name Role Phone Alex Ansari MD Primary Care Provider +1- [phone] Reason for Visit * Reason Onset Date Comments Other 07/10/2023 Encounter Details Date Type Department Care Team (Late st Contact Info) Description 07/10/2023 [facility] [address] [place] [address] [place] [phone] Bertha Allred, DO [address] [place] [phone] Other Allergies Active Allergy Reactions Criticality Noted Date Comments Environmental 11/12/2007 Mold, mildew, pollen cause itchy eyes, running nose documented as of this encounter (statuses as of 07/18/2023) Medications No known medicationsdocumented as of this encounter (statuses as of 07/18/2023) Active Problems Problem Noted Date Diagnosed Date [...] as of this encounter (statuses as of 07/18/2023) Resolved Problems Problem Noted Date Diagnosed Date Resolved Date Encounter for examination fo r normal comparison and control in clinical research program 08/13/2018 11/18/2019 Overview: DO NOT DELETE [facility] DETECT Study: Project # [id number], Family Day Care Provider: Parveen Zamudio, PhD. SUMMARY: Goal: Establish test [...] contact study staff at ; after hours Family Day Care Provider via the [facility] hospital vallez filter operator . Please contact study team before resolving/deleting from patients problem list. Study phone number: [phone]. Diagnosis changed due to Research Module. Go to Snapshot for study details. Encounter for examination fo r normal comparison and control in clinical research program 08/13/2018 12/16/2021 Overview: DO NOT DELETE - [facility] DETECT Study: Project # [id number], Family Day Care Provider: Alberto Choi, MS, MPH. SUMMARY: Goal: Establish [...] contact study staff at ; after hours Family Day Care Provider via the [facility] hospital vallez filter operator . - Please contact study team before resolving/deleting from patients problem list. Study phone number: [phone]. Diagnosis changed due to Research Module. Go [...] update of inactive term Rheumatoid [facility] of [facility] sites with negative rheumatoid factor 10/30/2008 [...] as of this encounter (statuses as of 07/18/2023) Immunizations Name Administration Dates Next Due COVID-19 mRNA, LNP-s, No Pre serve, 2-Dose Series (Pfizer) 10/14/2020,08/14/2020,07/20/2020 Hepatitis B, 20+ yrs 05/19/2023,03/23/2023 PPD 03/10/2010,10/27/2008 Pneumococcal Conjugate Vacc, 13 Valent (Prevnar) 03/13/2018 Pneumococcal Conjugate Vacci ne, 20-valent ([id number]) 05/19/2023 Pneumococcal Polysaccharide PPV23 (Pneumovax) 03/13/2019,05/02/2012,02/08/2007 Season [...] the money to buy more. Never true 12/07/20 22 Within the past 12 months, t [...] is available. Rheum: [place] [address] when patient is able to be scheduled [...] 08/18/2023 1:40 PM EDT Office Visit Nephrology, [facility] [address] [place] [address] Alvin Sanchez MD [address] [facility] [place] [address] 09/13/2023 8:30 AM EDT Office Visit Rheumatology [address] [place] [address] Linnette Lobo CRNP [facility] [place] [address] 11/15/2023 9:30 AM EDT Nurse Only Ancillary Department, [place] [address] [facility], [place] [phone] [place], Nurse [address] [place] [facility] [address] 03/27/2024 12:30 PM EST Nurse Only Ancillary Department, [place] [address] [facility], [place] [address] [place], Nurse Annual Wellness [address] [place] [facility] [address] 05/08/2024 7:40 AM EST Office Visit [facility], [place] [address] [facility], [place] [address] Maddi Bill, PA-C [address] [place] [facility] [place] [address] Scheduled Procedures Name Priority Associated Diagnoses Date/Ti [...] 04/28/2024 04/28/2023, 04/18 CKD HGB USE SMARTSET 90162 04/28/202404/28, 04/28/2023, 02/24/2023, Additional history exists CKD PHOS USE SMARTSET 63663 04/28/202404/17, 05/06/2022, 12/10/2020 HbA1c 04/28/2024 04/28/2023, 04/18, [...] D LEVEL ONCE IN A LIFETIME-USE SMARTSET# 04833 Completed 02/24/2023, 05/06/2022, 12/10/2020, Additional history exists Pneumococcal Vaccine: 65+ Years Completed 05/19/2023, 03/13/2019, 03/13/2018, Additional history exists GARDASIL-HPV IMMUNIZATION SERIES Aged Out No longer eligible based on patient's age to complete this topic MENINGOCOCCAL (MENACTRA/MENVEO) Aged Out No longer eligible based on patient's age to complete this topic documented as of this encounter Medical Devices Implanted Type Area Tablet Machine Operator Device Identifier Shelf Expiration Date Model / Serial / Lot Lens Intraoc 19.0 - [id number] Implanted:Qty: 1 on 03/20/2018 by Trent Fermin MD at OR [facility] Left: Eye BAUSCH [employer] LOMB 11/14/2022 [id number] / / [id number] Lens Intraoc 17.0 - [id number] - [id number] Implanted:Qty: 1 on 03/27/2018 by Trent Fermin MD at OR [facility] Right: Eye BAUSCH & LOMB 05/17/2022 [id number] / [id number] / [id number] documented as of this encounter Care Teams Stenographic Court Reporter Relationship Specialty Start Date End Date Alex Ansari MD [address] [place] [address] PCP - General 01/03/06 documented as of this encounter
--- OUTSIDE RECORDS SUMMARY | 2023-07-28 23:07 | External Medical Summary | Summary of Care ---
Author Name Unknown Organization [facility] Address [address] [facility] [place] [address] Phone [phone] Care Team Providers Care Vehicle Fuel Systems Converter Name Role Phone Alex Ansari MD Primary Care Provider +1- [phone] Reason for Visit * Reason Onset Date Comments Other 07/10/2023 Waiting for simp brain to be available Encounter Details Date Type Department Care Team (Late st Contact Info) Description 07/10/2023 Telephone Rheumatology [facility], Phuong Doherty [address] [place] [address] [place] [phone] Bertha Allred, [address] [place] [address] [place] [phone] Other (Waiting for simponi [...] program 08/13/2018 11/18/2019 Overview: DO NOT DELETE [facility] DETECT Study: Project # [id number], Lock Setter: Parveen Zamudio, PhD. SUMMARY: Goal: Establish test [...] contact study staff at ; after hours Lock Setter via the [facility] hospital plug drill operator . Please contact study team before resolving/deleting from patients problem list. Study phone number: [phone]. Diagnosis changed due to Research Module. Go to Snapshot for study details. Encounter for examination fo r normal comparison and control in clinical research program 08/13/2018 12/16/2021 Overview: DO NOT DELETE - [facility] JERRY Study: Project # [id number], Lock Setter: Alberto Choi, MS, MPH. SUMMARY: Goal: Establish [...] contact study staff at ; after hours Lock Setter via the [facility] hospital plug drill operator . - Please contact study team before resolving/deleting from patients problem list. Study phone number: [phone]. Diagnosis changed due to Research Module. Go [...] update of inactive term Rheumatoid arthritis of [facility] sites with negative rheumatoid factor 10/30/2008 01/25/2016 [...] (Prevnar) 03/13/2018 Pneumococcal Conjugate Vacci ne, 20-valent (Xongoxe86) 05/19/2023 Pneumococcal Polysaccharide PPV23 (Pneumovax) 03/13/2019,05/02/2012,02/08/2007 Season [...] Encounter - Carmela Lara RN - 07/24/2023 12:56 PM EDT Rheum: if/ when patient is ready to schedule after surgery, [place] p 75991. Thanks * Telephone Encounter - Edith Sung OSA [...] Received referral. Signed beacon plan in place. [place]: please advise when simponi is available. Rheum: [place] p [address] when patient is able to be scheduled [...] 08/18/2023 1:40 PM EDT Office Visit Nephrology, [address] [address] Alvin Sanchez MD [address] [place] [address] 09/13/2023 8:30 AM EDT Office Visit Rheumatology [address] [place], [place] [address] Linnette Lobo CRNP [address] [place] [address] [place] [address] 11/15/2023 9:30 AM EDT Nurse Only Ancillary Department, [address] [phone] [place], Nurse [address] [facility] [address] 03/27/2024 12:30 PM EST Nurse Only Ancillary Department, [place] [address] [facility], [place] [address] [place], Nurse Annual Wellness [address] [facility], [place] [address] 05/08/2024 7:40 AM EST Office Visit Family Practice, [place] [address] [facility], [place] [phone] Maddi Bill PA-C [address] [facility] [id number] Scheduled Procedures Name Priority Associated Diagnoses Date/Ti [...] 04/28/2024 04/28/2023, 04/18 CKD HGB USE SMARTSET 33019 04/28/202404/28, 04/28/2023, 02/24/2023, Additional history exists CKD PHOS USE SMARTSET 82956 04/28/202404/17, 05/06/2022, 12/10/2020 HbA1c 04/28/2024 04/28/2023, 04/18, [...] D LEVEL ONCE IN A LIFETIME-USE SMARTSET# 74770 Completed 02/24/2023, 05/06/2022, 12/10/2020, Additional history exists Pneumococcal Vaccine: 65+ Years Completed 05/19/2023, 03/13/2019, 03/13/2018, Additional history exists GARDASIL-HPV IMMUNIZATION SERIES Aged Out No longer eligible based on patient's age to complete this topic MENINGOCOCCAL (MENACTRA/MENVEO) Aged Out No longer eligible based on patient's age to complete this topic documented as of this encounter Medical Devices Implanted Type Area Food And Nutrition Teacher Device Identifier Shelf Expiration Date Model / Serial / Lot Lens Intraoc 19.0 - [id number] Implanted:Qty: 1 on 03/20/2018 by Trent Fermin MD at OR [facility] Left: Eye BAUSCH [employer] LOMB 11/14/2022 [id number] / / [id number] Lens Intraoc 17.0 - [id number] - [id number] Implanted:Qty: 1 on 03/27/2018 by Trent Fermin MD at OR [facility] Right: Eye BAUSCH & LOMB 05/17/2022 [id number] / [id number] / [id number] documented as of this encounter Care Teams Vehicle Fuel Systems Converter Relationship Specialty Start Date End Date Alex Ansari MD [address] [place] [address] PCP - General 01/03/06 documented as of this encounter
--- OUTSIDE RECORDS SUMMARY | 2023-07-28 23:08 | External Medical Summary | Summary of Care ---
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 [facility] Department: Specialist Specialty: Rheum Reason for Referral: Med Education Comments Rheumatology Pharmacist Disease Modifying Antirheumatic Drug (DMARD) Co- Management Referral for: DMARD Other: sim[facility] Additional Comments: none Minimum frequency patient should be seen in person for medication management: As appropriate per clinical condition and patient status By my signature, I understand that my patient, Nancy Bear will have her medication therapy managed by the [facility] Medication Therapy Disease Management Clinic (MTD) per established policies, procedures, and protocols. I also certify that this referral may serve as an initiation of service for the management of drug therapy in the above noted patient. [facility] providers will be responsible for scheduling patient visits, obtaining appropriate laboratory studies, and adjusting medication management therapy per patient's need, in addition to those roles spelled out in the clinic policy, procedures, and drug management protocols. I understand that the service provided by the [facility] is voluntary and have informed patient that they can refuse the service at their discretion. I am aware that the [facility] Clinic will provide me with a copy of the patient encounter via my Chi2gel In-Basket. I authorize the [facility] to carry out these activities on my behalf. I consider this program to be a necessary part of the patient's medical care. Paola Avalos [facility] Reason for Visit * Reason Onset Date Comments Medication Pre-auth 02/24/2023 Simponi Encounter Details Date Type Department Care Team (Late st Contact Info) Description 02/24/2023 Telephone Rheumatology [facility] [address] [place] [address] Linnette Lobo CRNP [address] [place] [address] Medication Pre-auth (Simponi) Allergies Active Allergy [...] DELETE [facility] DETECT Study: Project # [id number], Puppet Maker: Parveen Zamudio, PhD. SUMMARY: Goal: Establish test [...] contact study staff at ; after hours Puppet Maker via the [facility] line up machine operator . Please contact study team before resolving/deleting from patients problem list. Study phone number: [phone]. Diagnosis changed due to Research Module. Go to Snapshot for study details. Encounter for examination fo r normal comparison and control in clinical research program 08/13/2018 12/16/2021 Overview: DO NOT DELETE - [facility] Study: Project # [id number], Puppet Maker: Alberto Choi, MS, MPH. SUMMARY: Goal: Establish [...] contact study staff at ; after hours Puppet Maker via the [facility] hospital line up machine operator . - Please contact study team before resolving/deleting from patients problem list. Study phone number: [phone]. Diagnosis changed due to Research Module. Go [...] update of inactive term [facility] with negative rheumatoid factor 10/30/2008 [...] pending Required Screening Information: Vaccination(s): Patient has [facility] PCP - plan in place for [...] uncontrolled infection Reauthorization: No Rheumatology Office Information: Conveyor Line Bakery Worker: PENNY QUEEN Rheumatology Pharmacist: Carmela Martell Notification to the Clinic Needed: yes Thank you and have a wonderful day, Paola Avalos RPh * Telephone Encounter - Linnette Lobo CRNP - 02/24/2023 8:00 AM EST Rheumatology Education, Pre-Certification, and/or Pharmacist Co-Management Request Medication Education: yes Pre-Certification: [facility]: Pre-cert for Prednisone, DMARDs & IV/IM/SC Osteoporosis Meds ([facility] rheumatology pharmacist pool p [phone]) Pharmacist Co-Management ([facility] ONLY; West select "no"): Pharmacist Co- Management [...] [facility] per established policies, procedures, and protocols. I also certify that this referral may serve as an initiation of service for the management of drug therapy in the above noted patient. [facility] providers will be responsible for scheduling patient visits, obtaining appropriate laboratory studies, and adjusting medication management therapy per patient's need, in addition to those roles spelled out in the clinic policy, procedures, and drug management protocols. I understand that the service provided by the [facility] Clinic is voluntary and have informed patient that they can refuse the service at their discretion. I am aware that the [facility] Clinic will provide me with a copy of the patient encounter via my Chi2gel In-Basket. I authorize the [facility] to carryout these activities on my behalf. I consider this program to be a necessary part of the patient's medical care. BC May documented in this encounter Plan of Treatment Upcoming Encounters Date Type Department Care Team (Late st Contact Info) Description 07/14/2023 3:30 PM EDT Office Visit Rheumatology [address] [place], [place] [address] Linnette Lobo CRNP [address] [place] [address] [place], [place] [address] 08/18/2023 1:40 PM EDT Office Visit Nephrology, [address] [address] Alvin Sanchez MD [address] [place] [address] 11/15/2023 9:30 AM EDT Nurse Only Ancillary Department, [place] [address] [place] [address] [place], Nurse [address], [place] [phone] 03/27/2024 12:30 PM EST Nurse Only Ancillary Department, [place] [address], [place] [phone] [place], Nurse Annual Wellness [address] [place] [address] 05/08/2024 7:40 AM EST Office Visit Family [facility], [place] [address] [place] [phone] Maddi Bill PA-C [address], [place] [phone] Scheduled Procedures Name Priority Associated Diagnoses Date/Ti [...] 04/28/2024 04/28/2023, 04/18 CKD HGB USE SMARTSET 59783 04/28/202404/28, 04/28/2023, 02/24/2023, Additional history exists CKD PHOS USE SMARTSET 12608 04/28/202404/17, 05/06/2022, 12/10/2020 HbA1c 04/28/2024 04/28/2023, 04/18, [...] D LEVEL ONCE IN A LIFETIME-USE SMARTSET# 27119 Completed 02/24/2023, 05/06/2022, 12/10/2020, Additional history exists Pneumococcal Vaccine: 65+ Years Completed 05/19/2023, 03/13/2019, 03/13/2018, Additional history exists GARDASIL-HPV IMMUNIZATION SERIES Aged Out No longer eligible based on patient's age to complete this topic MENINGOCOCCAL (MENACTRA/MENVEO) Aged Out No longer eligible based on patient's age to complete this topic documented as of this encounter Medical Devices Implanted Type Area Lens Edge Grinder Machine Device Identifier Shelf Expiration Date Model / Serial / Lot Lens Intraoc 19.0 - [id number] Implanted:Qty: 1 on 03/20/2018 by Trent Fermin MD at OR [facility] Left: Eye BAUSCH [employer] LOMB 11/14/2022 [id number] / / [id number] Lens Intraoc 17.0 - [id number] - [id number] Implanted:Qty: 1 on 03/27/2018 by Trent Fermin MD at OR [facility] Right: Eye BAUSCH & LOMB 05/17/2022 [id number] / [id number] / [id number] documented as of this encounter Visit Diagnoses Diagnosis Rheumatoid arthritis of multiple 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
--- OUTSIDE RECORDS SUMMARY | 2023-07-28 23:08 | External Medical Summary | Summary of Care ---
Author Name Unknown Organization [facility] Address [address] [facility] [place] [address] Phone [phone] Care Team Providers Care Co Founder And President Name Role Phone Alex Ansari MD Primary Care Provider +1- [phone] Reason for Visit * Reason Onset Date Comments Other 07/10/2023 Encounter Details Date Type Department Care Team (Late st Contact Info) Description 07/10/2023 Telephone [facility] [address] [place] [address] [place] [address] Bertha Allred, DO [address] [place] [address] Other Allergies Active Allergy Reactions Criticality Noted Date Comments Environmental 11/12/2007 Mold, mildew, pollen cause itchy eyes, running nose documented as of this encounter (statuses as of 07/10/2023) Medications No known medicationsdocumented as of this [...] [facility] [place] DET[place] Study: Project # [id number], Electrical Apprentice: Parveen Zamudio, PhD. SUMMARY: Goal: Establish test [...] contact study staff at ; after hours Electrical Apprentice via the [facility] hospital dehydration unit operator . Please contact study team before resolving/deleting from patients problem list. Study phone number: [phone]. Diagnosis changed due to Research Module. Go to Snapshot for study details. Encounter for examination fo r normal comparison and control in clinical research program 08/13/2018 12/16/2021 Overview: DO NOT DELETE - [facility] DETECT Study: Project # [id number], Electrical Apprentice: Alberto Choi, MS, MPH. SUMMARY: Goal: Establish [...] contact study staff at ; after hours Electrical Apprentice via the [facility] hospital dehydration unit operator . - Please contact study team before resolving/deleting from patients problem list. Study phone number: [phone]. Diagnosis changed due to Research Module. Go [...] update of inactive term Rheumatoid arthritis of [facility] with negative rheumatoid factor [...] (Prevnar) 03/13/2018 Pneumococcal Conjugate Vacci ne, 20-valent ([id number]) 05/19/2023 Pneumococcal Polysaccharide PPV23 (Pneumovax) 03/13/2019,05/02/2012,02/08/2007 Season [...] encounter Miscellaneous Notes * Telephone Encounter - Chaparro Conte RPh [...] 07/14/2023 3:30 PM EDT Office Visit Rheumatology [place] [address] [facility], [place] [address] Linnette Lobo CRNP [address] [facility] [place] [address] 08/18/2023 1:40 PM EDT Office Visit [address]phrology, [address] [place] [phone] Alvin Sanchez MD [address] [place] [address] 11/15/2023 9:30 AM EDT Nurse Only Ancillary Department, [place] [address] [place] [facility] [address] [place], Nurse [address] [place] [address] 03/27/2024 12:30 PM EST Nurse Only Ancillary Department, [place] [address] [place] [facility] [address] [place], Nurse Annual Wellness [address] [place] [address] 05/08/2024 7:40 AM EST Office Visit Family Practice, [place] [address] [place] [facility] [phone] Maddi Bill PA-C [address] [facility], [place] [phone] Scheduled Procedures Name Priority Associated Diagnoses Date/Ti [...] 04/28/2024 04/28/2023, 04/18 CKD HGB USE SMARTSET 95527 04/28/202404/28, 04/28/2023, 02/24/2023, Additional history exists CKD PHOS USE SMARTSET 06909 04/28/202404/17, 05/06/2022, 12/10/2020 HbA1c 04/28/2024 04/28/2023, 04/18, [...] D LEVEL ONCE IN A LIFETIME-USE SMARTSET# 68637 Completed 02/24/2023, 05/06/2022, 12/10/2020, Additional history exists Pneumococcal Vaccine: 65+ Years Completed 05/19/2023, 03/13/2019, 03/13/2018, Additional history exists GARDASIL-HPV IMMUNIZATION SERIES Aged Out No longer eligible based on patient's age to complete this topic MENINGOCOCCAL (MENACTRA/MENVEO) Aged Out No longer eligible based on patient's age to complete this topic documented as of this encounter Medical Devices Implanted Type Area Petroleum Inspector Supervisor Device Identifier Shelf Expiration Date Model / Serial / Lot Lens Intraoc 19.0 - [id number] Implanted:Qty: 1 on 03/20/2018 by Trent Fermin MD at OR [facility] Left: Eye BAUSCH & LOMB 11/14/2022 [id number] / / [id number] Lens Intraoc 17.0 - [id number] - [id number] Implanted:Qty: 1 on 03/27/2018 by Trent Fermin MD at [facility] Right: Eye BAUSCH & LOMB 05/17/2022 [id number] / [id number] / [id number] documented as of this encounter Care Teams Co Founder And President Relationship Specialty Start Date End Date Alex Ansari MD [address] [place] [address] PCP - General 01/03/06 documented as of this encounter
--- OUTSIDE RECORDS SUMMARY | 2023-07-28 23:08 | External Medical Summary | Summary of Care ---
Author Name Unknown Organization [facility] Address [address] [place] [address] Phone [phone] Care Team Providers Care Ebd Special Education Teacher Name Role Phone Alex Ansari MD Primary Care Provider +1- [phone] Reason for Referral * Evaluate & Treat - Unlimited Visits (Within 10 days (routine)) - Authorized Specialty Diagnoses / Procedures Referred By Catalina austin Referred To Contact Pharmacist / Pharmacy Diagnoses Rheumatoid arthritis of multiple 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 factor (HCC) Linnette Lobo CRNP [address] [place] [address] Referral ID Status Reason Start Date Expiration Date Visits Requested Visits Authorized [id number] Authorized Specialty Services Required 3 99 99 Question Answer Referral Priority Within 10 days (routine) Where should this appointment be scheduled? [facility] Department: Specialist Specialty: Rheum Reason for Referral: Med Education Comments Rheumatology Pharmacist Disease Modifying Antirheumatic Drug (DMARD) Co- Management Referral for: DMARD Other: simponi [facility] Additional Comments: none Minimum frequency patient should be seen in person for medication management: As appropriate per clinical condition and patient status By my signature, I understand that my patient, Nancy Bear will have her medication therapy managed by the [facility] Medication Therapy Disease Management Clinic (MTD) per [...] understand that the service provided by the [facility] is voluntary and have informed patient that they can refuse the service at their discretion. I am aware that the [facility] will provide me with a copy of the patient encounter via my Useful at Night In-Basket. I authorize the [facility] to carry out these activities on my behalf. I consider this program to be a necessary part of the patient's medical care. Paola Avalos [facility] Reason for Visit * Reason Onset Date Comments Medication Pre-auth 02/24/2023 Simponi Encounter Details Date Type Department Care Team (Late st Contact Info) Description 02/24/2023 Telephone Rheumatology [facility] [address] [place] [address] Linnette Lobo CRNP [address] [place] [address] Medication Pre-auth (Simponi) Allergies Active Allergy [...] NOT DELETE [facility] DETECT Study: Project # [id number], Medical Case Manager: Parveen Zamudio, PhD. SUMMARY: Goal: Establish [...] contact study staff at ; after hours Medical Case Manager via the [facility] boat operator . Please contact study team before resolving/deleting from patients problem list. Study phone number: [phone]. Diagnosis changed due to Research Module. Go to Snapshot for study details. Encounter for examination fo r normal comparison and control in clinical research program 08/13/2018 12/16/2021 Overview: DO NOT DELETE - [facility] Study: Project # [id number], Medical Case Manager: Alberto Choi, MS, MPH. SUMMARY: Goal: [...] contact study staff at ; after hours Medical Case Manager via the [facility] hospital boat operator . - Please contact study team before resolving/deleting from patients problem list. Study phone number: [phone]. Diagnosis changed due to Research Module. Go [...] of inactive term [facility] with negative rheumatoid factor 10/30/2008 [...] pending Required Screening Information: Vaccination(s): Patient has [facility] PCP - plan in place for CDC/ACIP [...] uncontrolled infection Reauthorization: No Rheumatology Office Information: Elevator Conductor: PENNY QUEEN Rheumatology Pharmacist: Carmela Martell Notification to the Clinic Needed: yes Thank you and have a wonderful day, Paola Avalos RPh * Telephone Encounter - Linnette Lobo CRNP - 02/24/2023 8:00 AM EST Rheumatology Education, Pre-Certification, and/or Pharmacist Co-Management Request Medication Education: yes Pre-Certification: [facility]: Pre-cert for Prednisone, DMARDs & IV/IM/SC Osteoporosis Meds ([facility] rheumatology pharmacist pool p [phone]) Pharmacist Co-Management ([facility] [...] will [facility] medication [facility] [...] understand that the service provided by the [facility] is voluntary and have informed patient that they can refuse the service at their discretion. I am aware that the [facility] will provide me with a copy of the patient encounter via my Useful at Night In-Basket. I authorize the [facility] to carryout these activities on my behalf. I consider this program to be a necessary part of the patient's medical care. BC May documented in this encounter Plan of Treatment Upcoming Encounters Date Type Department Care Team (Late st Contact Info) Description 07/14/2023 3:30 PM EDT Office Visit Rheumatology [address] [place], [place] [address] Linnette Lobo CRNP [address] [place] [address] [place], [place] [address] 08/18/2023 1:40 PM EDT Office Visit Nephrology, [address] [address] Alvin Sanchez MD [address] [place] [address] 11/15/2023 9:30 AM EDT Nurse Only Ancillary Department, [place] [address] [place] [address] [place], Nurse [address] [place], [place] [phone] 03/27/2024 12:30 PM EST Nurse Only Ancillary Department, [place] [address] [place], [place] [phone] [place], Nurse Annual Wellness [address] [place] [address] 05/08/2024 7:40 AM EST Office Visit Family [facility], [place] [address] [place] [phone] Maddi Bill PA-C [address] [place], [place] [phone] Scheduled Procedures Name Priority Associated Diagnoses Date/Ti [...] 04/28/2024 04/28/2023, 04/18 CKD HGB USE SMARTSET 44140 04/28/202404/28, 04/28/2023, 02/24/2023, Additional history exists CKD PHOS USE SMARTSET 37155 04/28/202404/17, 05/06/2022, 12/10/2020 HbA1c 04/28/2024 04/28/2023, 04/18, [...] D LEVEL ONCE IN A LIFETIME-USE SMARTSET# 15777 Completed 02/24/2023, 05/06/2022, 12/10/2020, Additional history exists Pneumococcal Vaccine: 65+ Years Completed 05/19/2023, 03/13/2019, 03/13/2018, Additional history exists GARDASIL-HPV IMMUNIZATION SERIES Aged Out No longer eligible based on patient's age to complete this topic MENINGOCOCCAL (MENACTRA/MENVEO) Aged Out No longer eligible based on patient's age to complete this topic documented as of this encounter Medical Devices Implanted Type Area Motel Clerk Device Identifier Shelf Expiration Date Model / Serial / Lot Lens Intraoc 19.0 - [id number] Implanted:Qty: 1 on 03/20/2018 by Trent Fermin MD at OR [facility] Left: Eye BAUSCH & LOMB 11/14/2022 [id number] / / [id number] Lens Intraoc 17.0 - [id number] - [id number] Implanted:Qty: 1 on 03/27/2018 by Trent Fermin MD at OR [facility] Right: Eye BAUSCH & LOMB 05/17/2022 [id number] / [id number] / [id number] documented as of this encounter Visit Diagnoses Diagnosis Rheumatoid arthritis of multiple 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 factor (HCC)- Primary Rheumatoid arthritis documented in this encounter Additional Health Concerns Infection Onset Date Last Indicated Resolved Time Respiratory Rule-Out 04/14/2023 04/14/2023 023 7:16 AM EST COVID-19 (confirmed) 04/14/2023 04/14/2023 024 12:20 AM EST documented as of this encounter Care Teams Ebd Special Education Teacher Relationship Specialty Start Date End Date Alex Ansari MD [address] [place] [address] PCP - General 01/03/06 documented as of this encounter
--- OUTSIDE RECORDS SUMMARY | 2023-07-28 23:08 | External Medical Summary | Summary of Care ---
Author Name Unknown Organization [facility] Address [address] [place] [address] Phone [phone] Care Team Providers Care Central Office Supervisor Name Role Phone Alex Ansari MD Primary Care Provider +1- [phone] Reason for Referral * Evaluate & Treat - Unlimited Visits (Within 10 days (routine)) - Authorized Specialty Diagnoses / Procedures Referred By Catalina austin Referred To Contact Pharmacist / Pharmacy Diagnoses Rheumatoid arthritis of multiple 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 factor (HCC) Linnette Lobo CRNP [address] [place] [address] Referral ID Status Reason Start Date Expiration Date Visits Requested Visits Authorized [id number] Authorized Specialty Services Required 3 99 99 Question Answer Referral Priority Within 10 days (routine) Where should this appointment be scheduled? [facility] Department: Specialist Specialty: Rheum Reason for Referral: Med Education Comments Rheumatology Pharmacist Disease Modifying Antirheumatic Drug (DMARD) Co- Management Referral for: DMARD Other: simponi [facility] Additional Comments: none Minimum frequency patient should be seen in person for medication management: As appropriate per clinical condition and patient status By my signature, I understand that my patient, Nancy Bear will have her medication therapy managed by the [facility] Medication Therapy Disease Management Clinic (MTD) per established policies, procedures, and protocols. I also certify that this referral may serve as an initiation of service for the management of drug therapy in the above noted patient. [facility] providers will be responsible for scheduling patient visits, obtaining appropriate laboratory studies, and adjusting medication management therapy per patient's need, in addition to those roles spelled out in the clinic policy, procedures, and drug management protocols. I understand that the service provided by the [facility] is voluntary and have informed patient that they can refuse the service at their discretion. I am aware that the [facility] Clinic will provide me with a copy of the patient encounter via my SwipeClock In-Basket. I authorize the [facility] to carry out these activities on my behalf. I consider this program to be a necessary part of the patient's medical care. Paola Avalos [facility] Reason for Visit * Reason Onset Date Comments Medication Pre-auth 02/24/2023 Simponi Encounter Details Date Type Department Care Team (Late st Contact Info) Description 02/24/2023 Telephone Rheumatology [facility] [address] [place] [address] Linnette Lobo CRNP [address] [place] [address] Medication Pre-auth (Simponi) Allergies Active Allergy [...] DELETE [facility] DETECT Study: Project # [id number], Orderlies Teacher: Parveen Zamudio, PhD. SUMMARY: Goal: Establish test [...] contact study staff at ; after hours Orderlies Teacher via the [facility] air traffic control operator . Please contact study team before resolving/deleting from patients problem list. Study phone number: [phone]. Diagnosis changed due to Research Module. Go to Snapshot for study details. Encounter for examination fo r normal comparison and control in clinical research program 08/13/2018 12/16/2021 Overview: DO NOT DELETE - [facility] Study: Project # [id number], Orderlies Teacher: Alberto Choi, MS, MPH. SUMMARY: Goal: Establish [...] contact study staff at ; after hours Orderlies Teacher via the [facility] hospital air traffic control operator . - Please contact study team before resolving/deleting from patients problem list. Study phone number: [phone]. Diagnosis changed due to Research Module. Go [...] update of inactive term Rheumatoid [facility] of [facility] with negative rheumatoid factor 10/30/2008 [...] pending Required Screening Information: Vaccination(s): Patient has [facility] PCP - plan in place for CDC/ACIP [...] uncontrolled infection Reauthorization: No Rheumatology Office Information: Registered Nurse Midwife: PENNY QUEEN Rheumatology Pharmacist: Carmela Martell Notification to the Clinic Needed: yes Thank you and have a wonderful day, Paola Avalos RPh * Telephone Encounter - Linnette Lobo CRNP - 02/24/2023 8:00 AM EST Rheumatology Education, Pre-Certification, and/or Pharmacist Co-Management Request Medication Education: yes Pre-Certification: GWV/GMC: Pre-cert for Prednisone, DMARDs & IV/IM/SC Osteoporosis Meds ([facility] rheumatology pharmacist pool p [phone]) Pharmacist Co-Management ([facility] ONLY; West select "no"): Pharmacist Co- Management [...] [facility] have [facility]) per established policies, procedures, and protocols. I also certify that this referral may serve as an initiation of service for the management of drug therapy in the above noted patient. [facility] providers will be responsible for scheduling patient visits, obtaining appropriate laboratory studies, and adjusting medication management therapy per patient's need, in addition to those roles spelled out in the clinic policy, procedures, and drug management protocols. I understand that the service provided by the [facility] Clinic is voluntary and have informed patient that they can refuse the service at their discretion. I am aware that the [facility] Clinic will provide me with a copy of the patient encounter via my SwipeClock In-Basket. I authorize the [facility] Clinic to carryout these activities on my behalf. I consider this program to be a necessary part of the patient's medical care. BC May documented in this encounter Plan of Treatment Upcoming Encounters Date Type Department Care Team (Late st Contact Info) Description 07/14/2023 3:30 PM EDT Office Visit Rheumatology [address] [place], [place] [address] Linnette Lobo CRNP [address] [place] [address] [place], [place] [address] 08/18/2023 1:40 PM EDT Office Visit Nephrology, [address] [address] Alvin Sanchez MD [address] [place] [address] 11/15/2023 9:30 AM EDT Nurse Only Ancillary Department, [place] [address] [place] [address] [place], Nurse [address] [place], [place] [phone] 03/27/2024 12:30 PM EST Nurse Only Ancillary Department, [place] [address] [place], [place] [phone] [place], Nurse Annual Wellness [address] [place] [address] 05/08/2024 7:40 AM EST Office Visit Family [facility], [place] [address] [place] [phone] Maddi Bill PA-C [address] [place], [place] [phone] Scheduled Procedures Name Priority Associated Diagnoses Date/Ti [...] 04/28/2024 04/28/2023, 04/18 CKD HGB USE SMARTSET 07587 04/28/202404/28, 04/28/2023, 02/24/2023, Additional history exists CKD PHOS USE SMARTSET 90185 04/28/202404/17, 05/06/2022, 12/10/2020 HbA1c 04/28/2024 04/28/2023, 04/18, [...] D LEVEL ONCE IN A LIFETIME-USE SMARTSET# 22503 Completed 02/24/2023, 05/06/2022, 12/10/2020, Additional history exists Pneumococcal Vaccine: 65+ Years Completed 05/19/2023, 03/13/2019, 03/13/2018, Additional history exists GARDASIL-HPV IMMUNIZATION SERIES Aged Out No longer eligible based on patient's age to complete this topic MENINGOCOCCAL (MENACTRA/MENVEO) Aged Out No longer eligible based on patient's age to complete this topic documented as of this encounter Medical Devices Implanted Type Area Thread Dresser Device Identifier Shelf Expiration Date Model / Serial / Lot Lens Intraoc 19.0 - [id number] Implanted:Qty: 1 on 03/20/2018 by Trent Fermin MD at [facility] Left: Eye [employer]USCH [employer] LOMB 11/14/2022 [id number] / / [id number] Lens Intraoc 17.0 - [id number] - [id number] Implanted:Qty: 1 on 03/27/2018 by Trent Fermin MD at [facility] Right: Eye BAUSCH [employer] LOMB 05/17/2022 [id number] / [id number] / [id number] documented as of this encounter Visit Diagnoses Diagnosis Rheumatoid arthritis of multiple 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 factor (HCC)- Primary Rheumatoid arthritis documented in this encounter Additional Health Concerns Infection Onset Date Last Indicated Resolved Time Respiratory Rule-Out 04/14/2023 04/14/2023 023 7:16 AM EST COVID-19 (confirmed) 04/14/2023 04/14/2023 024 12:20 AM EST documented as of this encounter Care Teams Central Office Supervisor Relationship Specialty Start Date End Date Alex Ansari MD [address] [place] [address] PCP - General 01/03/06 documented as of this encounter
--- OUTSIDE RECORDS SUMMARY | 2023-07-28 23:08 | External Medical Summary | Summary of Care ---
Author Name Unknown Organization [facility] Address [address] [place] [address] Phone [phone] Care Team Providers Care Welfare Officer Name Role Phone Alex Ansari MD Primary Care Provider +1- [phone] Reason for Referral * Evaluate & Treat - Unlimited Visits (Within 10 days (routine)) - Authorized Specialty Diagnoses / Procedures Referred By Catalina austin Referred To Contact Pharmacist / Pharmacy Diagnoses Rheumatoid arthritis of multiple 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 factor (HCC) Linnette Lobo CRNP [address] [place] [address] Referral ID Status Reason Start Date Expiration Date Visits Requested Visits Authorized [id number] Authorized Specialty Services Required 3 99 99 Question Answer Referral Priority Within 10 days (routine) Where should this appointment be scheduled? [facility] Department: Specialist Specialty: Rheum Reason for Referral: Med Education Comments Rheumatology Pharmacist Disease Modifying Antirheumatic Drug (DMARD) Co- Management Referral for: DMARD Other: simponi [facility] Additional Comments: none Minimum frequency patient should be seen in person for medication management: As appropriate per clinical condition and patient status By my signature, I understand that my patient, Nancy Bear will have her medication therapy managed by the [facility] Medication Therapy Disease Management Clinic (MTD) per established policies, procedures, and protocols. I also certify that this referral may serve as an initiation of service for the management of drug therapy in the above noted patient. [facility] providers will be responsible for scheduling patient visits, obtaining appropriate laboratory studies, and adjusting medication management therapy per patient's need, in addition to those roles spelled out in the clinic policy, procedures, and drug management protocols. I understand that the service provided by the [facility] is voluntary and have informed patient that they can refuse the service at their discretion. I am aware that the [facility] Clinic will provide me with a copy of the patient encounter via my Senexx In-Basket. I authorize the [facility] to carry out these activities on my behalf. I consider this program to be a necessary part of the patient's medical care. Paola Avalos [facility] Reason for Visit * Reason Onset Date Comments Medication Pre-auth 02/24/2023 Simponi Encounter Details Date Type Department Care Team (Late st Contact Info) Description 02/24/2023 Telephone Rheumatology [facility] [address] [place] [address] Linnette Lobo CRNP [address] [place] [address] Medication Pre-auth (Simponi) Allergies Active Allergy [...] DELETE [facility] DETECT Study: Project # [id number], Plycor Operator: Parveen Zamudio, PhD. SUMMARY: Goal: Establish [...] contact study staff at ; after hours Plycor Operator via the [facility] raymond mill operator . Please contact study team before resolving/deleting from patients problem list. Study phone number: [phone]. Diagnosis changed due to Research Module. Go to Snapshot for study details. Encounter for examination fo r normal comparison and control in clinical research program 08/13/2018 12/16/2021 Overview: DO NOT DELETE [facility] Study: Project # [id number], Plycor Operator: Alberto Choi, MS, MPH. SUMMARY: Goal: [...] contact study staff at ; after hours Plycor Operator via the [facility] hospital raymond mill operator . - Please contact study team before resolving/deleting from patients problem list. Study phone number: [phone]. Diagnosis changed due to Research Module. Go [...] update of inactive term [facility]oid [facility] of [facility] sites with negative rheumatoid factor [...] pending Required Screening Information: Vaccination(s): Patient has [facility] PCP - plan in place for CDC/ACIP [...] uncontrolled infection Reauthorization: No Rheumatology Office Information: Air Dispatcher: PENNY QUEEN Rheumatology Pharmacist: Carmela Martell Notification to the Clinic Needed: yes Thank you and have a wonderful day, Paola Avalos RPh * Telephone Encounter - Linnette Lobo CRNP - 02/24/2023 8:00 AM EST Rheumatology Education, Pre-Certification, and/or Pharmacist Co-Management Request Medication Education: yes Pre-Certification: GWV/GMC: Pre-cert for Prednisone, DMARDs & IV/IM/SC Osteoporosis Meds ([facility] rheumatology pharmacist pool p [phone]) Pharmacist Co-Management ([facility] ONLY; West select "no"): Pharmacist Co- Management [...] [facility]) per established policies, procedures, and protocols. I also certify that this referral may serve as an initiation of service for the management of drug therapy in the above noted patient. [facility] providers will be responsible for scheduling patient visits, obtaining appropriate laboratory studies, and adjusting medication management therapy per patient's need, in addition to those roles spelled out in the clinic policy, procedures, and drug management protocols. I understand that the service provided by the [facility] Clinic is voluntary and have informed patient that they can refuse the service at their discretion. I am aware that the [facility] Clinic will provide me with a copy of the patient encounter via my Senexx In-Basket. I authorize the [facility] Clinic to carryout these activities on my behalf. I consider this program to be a necessary part of the patient's medical care. BC May documented in this encounter Plan of Treatment Upcoming Encounters Date Type Department Care Team (Late st Contact Info) Description 07/14/2023 3:30 PM EDT Office Visit Rheumatology [address] [place], [place] [address] Linnette Lobo CRNP [address] [place] [address] [place], [place] [address] 08/18/2023 1:40 PM EDT Office Visit Nephrology, [address] [address] Alvin Sanchez MD [address] [place] [address] 11/15/2023 9:30 AM EDT Nurse Only Ancillary Department, [place] [address] [place] [address] [place], Nurse [address] [place], [place] [phone] 03/27/2024 12:30 PM EST Nurse Only Ancillary Department, [place] [address] [place], [place] [phone] [place], Nurse Annual Wellness [address] [place] [address] 05/08/2024 7:40 AM EST Office Visit Family [facility], [place] [address] [place] [phone] Maddi Bill PA-C [address] [place], [place] [phone] Scheduled Procedures Name Priority Associated Diagnoses Date/Ti [...] 04/28/2024 04/28/2023, 04/18 CKD HGB USE SMARTSET 71185 04/28/202404/28, 04/28/2023, 02/24/2023, Additional history exists CKD PHOS USE SMARTSET 36171 04/28/202404/17, 05/06/2022, 12/10/2020 HbA1c 04/28/2024 04/28/2023, 04/18, [...] D LEVEL ONCE IN A LIFETIME-USE SMARTSET# 70712 Completed 02/24/2023, 05/06/2022, 12/10/2020, Additional history exists Pneumococcal Vaccine: 65+ Years Completed 05/19/2023, 03/13/2019, 03/13/2018, Additional history exists GARDASIL-HPV IMMUNIZATION SERIES Aged Out No longer eligible based on patient's age to complete this topic MENINGOCOCCAL (MENACTRA/MENVEO) Aged Out No longer eligible based on patient's age to complete this topic documented as of this encounter Medical Devices Implanted Type Area Draw Frame Tender Device Identifier Shelf Expiration Date Model / Serial / Lot Lens Intraoc 19.0 - [id number] Implanted:Qty: 1 on 03/20/2018 by Trent Fermin MD at [facility] Left: Eye BAUSCH [employer] LOMB 11/14/2022 [id number] / / [id number] Lens Intraoc 17.0 - [id number] - [id number] Implanted:Qty: 1 on 03/27/2018 by Trent Fermin MD at OR [facility] Right: Eye BAUSCH [employer] LOMB 05/17/2022 [id number] / [id number] / [id number] documented as of this encounter Visit Diagnoses Diagnosis Rheumatoid arthritis of multiple 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 factor (HCC)- Primary Rheumatoid arthritis documented in this encounter Additional Health Concerns Infection Onset Date Last Indicated Resolved Time Respiratory Rule-Out 04/14/2023 04/14/2023 023 7:16 AM EST COVID-19 (confirmed) 04/14/2023 04/14/2023 024 12:20 AM EST documented as of this encounter Care Teams Welfare Officer Relationship Specialty Start Date End Date Alex Ansari MD [address] [place] [address] PCP - General 01/03/06 documented as of this encounter
--- OUTSIDE RECORDS SUMMARY | 2023-07-28 23:08 | External Medical Summary | Summary of Care ---
Author Name Unknown Organization [facility] Address [address] [place] [facility] [place] [address] Phone [phone] Care Team Providers Care Boilermaking Supervisor Name Role Phone Alex Ansari MD Primary Care Provider +1- [phone] Reason for Visit * Reason Onset Date Comments Other 07/10/2023 Encounter Details Date Type Department Care Team (Late st Contact Info) Description 07/10/2023 [facility] [address] [place] [address] [place] [id number] Bertha Allred, DO [address] [place] [address] Other Allergies Active Allergy [...] stage 3a 09/29/2020 Overview: Per CKD protocol AZRI (obstructive sleep apnea) 02/10/2020 Nocturnal hypoxemia 02/10/2020 [...] program 08/13/2018 11/18/2019 Overview: DO NOT DELETE [facility] DETECT Study: Project # [id number], Silk Spreader: Parveen Zamudio, PhD. SUMMARY: Goal: Establish test [...] contact study staff at ; after hours Silk Spreader via the [facility] hospital drying tunnel operator . Please contact study team before resolving/deleting from patients problem list. Study phone number: [phone]. Diagnosis changed due to Research Module. Go to Snapshot for study details. Encounter for examination fo r normal comparison and control in clinical research program 08/13/2018 12/16/2021 Overview: DO NOT DELETE - [facility] DETECT Study: Project # [id number], Silk Spreader: Alberto Choi, MS, MPH. SUMMARY: Goal: Establish [...] contact study staff at ; after hours Silk Spreader via the [facility] hospital drying tunnel operator . - Please contact study team before resolving/deleting from patients problem list. Study phone number: [phone]. Diagnosis changed due to Research Module. 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 [...] (Prevnar) 03/13/2018 Pneumococcal Conjugate Vacci ne, 20-valent ([id number]) 05/19/2023 Pneumococcal Polysaccharide PPV23 (Pneumovax) 03/13/2019,05/02/2012,02/08/2007 Season [...] 3:30 PM EDT Office Visit Rheumatology [place] [address] [facility], [place] [address] Linnette Lobo CRNP [address] [facility] [place] [address] 08/18/2023 1:40 PM EDT Office [address], [address] [place] [phone] Alvin Sanchez MD [address] [place] [address] 11/15/2023 9:30 AM EDT Nurse Only Ancillary Department, [place] [address] [place] [facility] [place] [address] [place], Nurse [address] [place] [facility] [address] 03/27/2024 12:30 PM EST Nurse Only Ancillary Department, [place] [address] [place] [facility] [address] [place], Nurse Annual Wellness [address] [place] [facility] [address] 05/08/2024 7:40 AM EST Office Visit Family Practice, [place] [address] [place] [facility] [phone] Maddi Bill PA-C [address] [facility], [place] [phone] Scheduled Procedures Name Priority Associated Diagnoses Date/Ti [...] 04/28/2024 04/28/2023, 04/18 CKD HGB USE SMARTSET 56757 04/28/202404/28, 04/28/2023, 02/24/2023, Additional history exists CKD PHOS USE SMARTSET 51874 04/28/202404/17, 05/06/2022, 12/10/2020 HbA1c 04/28/2024 04/28/2023, 04/18, [...] D LEVEL ONCE IN A LIFETIME-USE SMARTSET# 69521 Completed 02/24/2023, 05/06/2022, 12/10/2020, Additional history exists Pneumococcal Vaccine: 65+ Years Completed 05/19/2023, 03/13/2019, 03/13/2018, Additional history exists GARDASIL-HPV IMMUNIZATION SERIES Aged Out No longer eligible based on patient's age to complete this topic MENINGOCOCCAL (MENACTRA/MENVEO) Aged Out No longer eligible based on patient's age to complete this topic documented as of this encounter Medical Devices Implanted Type Area Forklift Driver Device Identifier Shelf Expiration Date Model / Serial / Lot Lens Intraoc 19.0 - [id number] Implanted:Qty: 1 on 03/20/2018 by Trent Fermin MD at OR [facility] Left: Eye [employer]OM[employer] 11/14/2022 [id number] / / [id number] Lens Intraoc 17.0 - [id number] - [id number] Implanted:Qty: 1 on 03/27/2018 by Trent Fermin MD at [facility] Right: Eye BAUSCH [employer] LOMB 05/17/2022 [id number] / [id number] / [id number] documented as of this encounter Care Teams Boilermaking Supervisor Relationship Specialty Start Date End Date Alex Ansari MD [address] [place] [address] PCP - General 01/03/06 documented as of this encounter
--- NOTE | 2023-07-29 00:19 | Electrocardiogram Report ---
Test Reason : Blood Pressure : / mmHG Vent. Rate : 078 BPM Atrial Rate : 078 BPM P-R Int : 178 ms QRS Dur : 088 ms QT Int : 396 ms P-R-T Axes : 049 031 046 degrees QTc Int : 451 ms Sinus rhythm with frequent Premature ventricular complexes in a pattern of bigeminy Otherwise normal ECG When compared with ECG of 30-JUN-2023 11:37, Premature ventricular complexes are now Present Confirmed by Kayode Jerry ([id number]) on 07/29/2023 12:18:42 AM Referred By: Sebas Nicole Confirmed By:Kayode Jerry
[2023-07-29] MEDS: dexAMETHasone 4 MG TAB PO SCH (07:36)
[2023-07-29] MEDS: MULTIVITAMIN TAB PO SCH (07:37)
--- NOTE | 2023-07-29 11:39 | Orthopedic Progress Note ---
Date of Service July 29, 2023 Assessment & Plan (1) Status post reverse total replacement of left shoulder: Overall she is doing very well. She is not having much pain in the left shoulder. She will be seen by physical therapy today for ambulation and range of motion exercises. She can be discharged home later today. She will follow- up orthopedics in 2 weeks. Toney Cruz was seen and examined at bedside this morning. Overall she is doing fairly well. She is not having much pain in the left shoulder. She has been up and ambulating. She has no complaints.. Review of Systems All systems reviewed & are unremarkable except as noted in HPI & below. Physical Exam On physical examination of left shoulder, the dressing is clean and dry. She is wearing her sling as instructed. She is active dorsiflexion and motion of her left hand.. Results & Data Results & Data Laboratory Results . Diagnostic Findings Postoperative x-rays the left shoulder show the prosthesis to be in anatomic alignment without any evidence of fracture, his cage, or loosening.. PG Care Time/CCT Total # of Minutes Spent Total Time Spent with Patient: Total time spent is greater than 50% in coordination of care (as documented) at patient's floor/unit and/or counseling patient: Coding Level of Care Code 00543 Post Operative Follow-Up Diagnoses Status post reverse total replacement of left shoulder Z96.612
--- NOTE | 2023-07-29 11:40 | Discharge Summary ---
Date of Service July 29, 2023 Admission HPI (Per Admitting) Nancy is a pleasant 72-year-old female who has been dealing with chronic increasing left shoulder pain and weakness. She has been treated by another provider in our office. She has had multiple injections. She complains mostly of pain and weakness. She has trouble doing any away from her body or up overhead. She has trouble sleeping at night. She had an MRI of her shoulder, which showed signs of cuff tear arthropathy. After failing extensive conservative treatment, she has elected proceed with a left reverse shoulder arthroplasty.. Admission Exam (Per Admitting) On physical examination of the left shoulder, she has 100 degrees of forward elevation 100 degrees of abduction. She has 4 out of 5 motion at the full can test and external rotation. Pain with range of motion testing.. Principal Diagnosis Same as "Discharge Diagnosis" noted below under Discharge Instructions. Discharge Exam On physical examination of left shoulder, the dressing is clean and dry. She is wearing her sling as instructed. She is active dorsiflexion and motion of her left hand.. Discharge Data Procedures Performed Operation Date: 07/28/23 10:00 Actual Procedures p Left Reverse Total Shoulder Arthroplasty(Left) - Sebas Nicole DO Ordered Studies 07/28/23 05:00 US - OR guided needle placemen Routine Hospital Course (1) Status post reverse total replacement of left shoulder: On July 28, 2023 Nancy arrived at [facility] and underwent a left reverse shoulder replacement without complication. She had a general anesthetic with a left interscalene nerve block. Postoperatively she was placed in an arm sling and transferred to the general orthopedic floors. Her hospital course was uneventful. On postop day #1, her vital signs were stable and her pain was well-controlled. She was able to participate well with physical therapy doing ambulation and range of motion exercises. She was then discharged home. She will follow-up with orthopedics in 2 weeks. PG Care Time/CCT Total # of Minutes Spent Total Time Spent with Patient: Total time spent is greater than 50% in coordination of care (as documented) at patient's floor/unit and/or counseling patient: Discharge Plan Discharge Items Patient Disposition: Home - Self-Care Reason For Visit: Degenerative Joint Disease Left Shoulder Discharge Diagnosis: Left reverse shoulder replacement Activity: As commented below Non-emergency contact: Surgeon Call non-emergency contact if: your wound has increased redness and your wound has increased drainage Follow-up/Referrals: Alex Ansari MD [Primary Care Provider] - Diet: Regular Addtl Attending Provider Instructions: Activity and Therapy Recommendations: * If you are using [facility] then therapy will be provided at your home until they feel you have accomplished all of your goals. * If you are using [facility] then Physical Therapy will be provided until they feel you are ready to start Outpatient Physical Therapy. * If you are not using home therapy then Outpatient Physical Therapy should start about 3-5 days from your day of surgery. Therapy will last about 8-12 weeks * Wear your sling for 3 weeks, unless otherwise instructed. You may remove your sling to shower and to dress, but otherwise, you should be in your sling at all times, including while sleeping * The shoulder replacement is very stable and you can use your hand while in the sling * You were shown a series of exercises in the hospital. Do these exercises daily including the exercises you were shown in physical therapy. Medications: * Narcotic You will likely be sent home from the hospital with a prescription for the narcotic pain medication that worked best throughout your stay. * Cefadroxil -take the antibiotic twice a day for 10 days to help prevent infection. * Other medications may be prescribed for specific circumstances. If you have any questions, please call the office at . * Resume previous home medications unless otherwise instructed Dressing Care: Leave the Silverlon dressing in place for 7 days. After 7 days you may remove the dressing. If the incision is not draining then you may leave the consuelo open to air. If there is a little bit of drainage or if the consuelo are getting stuck on your clothing then cover the incision with a dry dressing. The consuelo will be removed at your 2 week follow-up appointment. Showering: You may shower with the Silverlon dressing in place. Do not let the shower spray hit the dressing directly. Pat the Silverlon dressing dry. If the dressing becomes wet underneath, then simply remove the dressing. Keep the incision dry until you are 7 days out from the day of surgery. After 7 days you may remove the Silverlon dressing and shower with the consuelo exposed. Let soapy water run over the consuelo and pat them dry. Do not scrub or soak the incision. Things To Watch For: * Drainage from the incision site that occurs more than one week after your surgery. * Increased redness at the incision site. * Fever above 102 degrees Fahrenheit. * Unusual chest pain or shortness of breath. * Call [facility] at with any of the above problems Follow-Up Visit: Follow-up with Dr. Nicole's PA (Sebas Tellez) 2-3 weeks after your day of surgery. He will remove your consuelo and answer any questions. If you have any additional questions or concerns, Dr Nicole is usually in the office at the same time and will be available An appointment was probably scheduled when you signed-up for surgery in the office. If you have any questions call More detailed instructions as well as Frequently Asked Questions were provided in a folder by our office when you signed-up for surgery. Please review these instructions when you get home. If you have any further questions or concerns, please feel free to call the office at [phone] Pending Studies at Discharge: No Stand-Alone Forms: My [facility], Smoking Cessation Medications and DC Order Prescriptions: New oxycodone 5 mg Tablet 5 mg PO Q4H PRN (Reason: pain) Qty: 30 0RF cefadroxil 500 mg capsule 500 mg PO BID 10 Days Qty: 20 0RF Continued acetaminophen [Tylenol Extra Strength] 500 mg Tablet 1,000 mg PO BID PRN (Reason: Pain) Discharge Orders: Discharge Order (Routine); Ordered 07/29/23 Ordered By: Sebas Faust/Other Patient Handouts: Rotator Cuff Tear, Shoulder Flexibility Admission Data Admit Date/Time: 07/28/23 11:37 Attending Provider: Sebas Nicole Admit Provider: Sebas Nicole Primary Care Provider: Alex Ansari Other Interventions: Discharge Summary Assessment (RN) Last Done: 07/29/23 09:10
== END 2023-07-29 09:54 | disposition home or self-care (01) ==
LOC: 3W 08:26 → ASU 08:26

== ENCOUNTER 2023-10-19 05:01 | Observation (INO) ==
[2023-10-19 05:47] LABS: Appearance Urine Clear (Clear); Bacteria Urine Automated None Seen (None Seen); Bilirubin Urine Negative (Negative); Blood Urine Negative (Negative); Cast Urine Automated 0-2 /lpf (0-2); Color Urine Yellow; Epithelial Cell Urine Auto 0-2 /hpf (0-2); Glucose Urine UA Negative (Negative); Ketones Urine Negative (Negative); Leukocyte Esterase Urine 1+ (Negative); Nitrite Urine Negative (Negative); Protein Urine Negative (Negative); RBC Urine Automated 0-2 /hpf (0-2); Specific Gravity Urine 1.013 (1.000-1.030); Urobilinogen Urine Negative (Negative)
[2023-10-19 06:35] LABS: Basophils # (auto) 0.03 K/uL (0.00-0.20); Basophils % (auto) 0.6 %; Eosinophils # (auto) 0.17 K/uL (0.00-0.50); Eosinophils % (auto) 3.2 %; Hematocrit (blood only) 41.3 % (37.0-47.0); Hemoglobin 13.8 g/dl (12.0-16.0); Immature Granulocytes # (auto) 0.02 K/uL (0.01-0.20); Immature Granulocytes % (auto) 0.4 %; Lymphocytes # (auto) 1.93 K/uL (1.20-3.40); Lymphocytes % (auto) 35.9 %; Mean Corpuscular Hemoglobin 28.7 pg (25.0-34.0); Mean Corpuscular Hgb Conc 33.4 g/dL (32.0-36.0); Mean Corpuscular Volume 85.9 fL (80.0-100.0); Mean Platelet Volume 8.6 fL (9.4-12.4); Monocytes # (auto) 0.58 K/uL (0.11-0.59); Monocytes % (auto) 10.8 %; Neutrophils # (auto) 2.65 K/uL (1.40-6.50); Neutrophils % (auto) 49.1 %; Platelet Count 265 K/uL (130-400); RDW Coefficient of Variation 13.1 % (11.5-14.5); RDW Standard Deviation 40.7 fL (36.4-46.3); Red Blood Count 4.81 M/uL (4.20-5.40); White Blood Count 5.38 K/ul (4.8-10.8)
--- NOTE | 2023-10-19 06:40 | Emergency Department Note ---
History of Present Illness General Chief complaint: Back Injury/Pain Stated complaint: BACK PAIN, BLEEDING Time Seen by Provider: 10/19/23 06:31 Source: patient, RN notes reviewed and old records reviewed (12/14/22-urology visit for kidney stones) Mode of arrival: ambulatory Limitations: no limitations History of Present Illness Maximum Pain Intensity: 4 This patient is a 73-year-old female history of 1 kidney and as well as history of kidney stones comes in after having right flank pain that started around 4:00 this morning. She had a kidney stone 3 years ago. She also has back pain since then she tells me that she had no dysuria but has had some frequency lately. No fever chills or systemic complaints other than yesterday evening she is felt off. No nausea vomiting normal bowel movements no blood or melena in her stool no numbness or weakness. No trauma or injuries. Home Medications Medication Instructions Recorded Confirmed Type acetaminophen 500 mg tablet 1,000 mg PO BID PRN Pain 03/27/23 10/19/23 History (Tylenol Extra Strength) acetaminophen 650 mg 650 mg PO Q12H PRN Pain 10/19/23 10/19/23 History tablet,extended release (Tylenol Arthritis Pain) golimumab 12.5 mg/mL intravenous 0 mg IV UD 10/19/23 10/19/23 History solution (Simponi ARIA) Allergies Allergy/AdvReac Type Severity Reaction Status Date / Time No Known Allergies Allergy Unknown Verified 10/19/23 08:09 Past Med/Surg History Problem List HTN (hypertension) Bradycardia (Acute) PVCs (premature ventricular contractions) (Acute) Acute UTI (urinary tract infection) (Acute) Acute right flank pain (Acute) Carpal tunnel syndrome, left Brachial plexopathy Status post reverse total replacement of left shoulder (~07/2023) Encounter for pre-operative examination Rotator cuff arthropathy of left shoulder Glenohumeral arthritis AC joint arthropathy Rotator cuff tear Status post total right knee replacement Renal colic Hydronephrosis, right Right ureteral calculus Kidney stone (Acute) Right knee DJD Sepsis (Acute) Abdominal pain (Acute) Abdominal pain (Acute) Lupus (Chronic) Will be seeing [facility] rheum at the end of June Solitary kidney, acquired (Chronic) s/p nephrectomy - S/P cystoscopy with ureteral stent placement last 12/16/21 @ [facility]: LMA #4. Medical History History of ITP ~2001, lasted for 2 weeks, no current issues History of cardiac arrhythmia Hx bigeminy/ventricular ectopy, unremarkable echo 2019 Hx of renal calculi No recent issues Hx of gastroesophageal reflux (GERD) Well controlled and stable History of anxiety Sleep apnea does not use device Asthma rarely uses inhaler well controlled per patient History of COVID-19 Dx 03/2021, Symptoms at time: cold, fever, cough > resolved 03/2023, pcp test, not hosp; mild symptoms>tx w/paxlovid- no current symptoms Surgical History Hx of tubal ligation Hx of bilateral cataract extraction History of lumbar surgery History of total right knee replacement Hx of arthroscopy of shoulder rt, w/RCT repair History of nephrectomy Due to nonfunctioning - 2021- no current issues with remaining kidney History of esophagogastroduodenoscopy (EGD) Hx of colonoscopy Family History Other No family history of adverse response to anesthesia Social History Smoking Status: Never smoker Second Hand Exposure: No; Do You Dip or Chew Tobacco: No; Hx Alcohol Use: Yes Alcohol type: beer Hx Substance Use: No Preferred Language: Vietnamese Communication Ability: Effective Director Pharmaceutical Required: No Beliefs That Will Affect Care: None Current Living Situation: Alone Feels Safe at Home: Yes Assistive Devices: Denture - Lower Review of Systems A total of 10 systems reviewed and were otherwise negative Physical Exam Vital Signs Vital Signs - 24 hr 10/19/23 05:04 10/19/23 07:50 10/19/23 07:55 Temperature 36.8 C Temperature Source Oral Pulse Rate 78 73 Pulse Rate [Apical] 37 L Pulse Rhythm [Apical] Pulse Strength [Apical] Respiratory Rate Respiratory Effort / Characteristics Respiratory Depth Respiratory Pattern Blood Pressure 166/75 H Blood Pressure [Right Arm] Blood Pressure Mean 105 Blood Pressure Mean [Right Arm] Blood Pressure Position [Right Arm] Pulse Oximetry 96 Oxygen Delivery Method Room Air Sepsis Recent Fever Within 48 Hours No Sepsis New/Unexplained Change in Mental Status No Sepsis Action Taken by Nursing No Action Required 10/19/23 08:12 10/19/23 10:00 10/19/23 10:58 Temperature 36.8 C Temperature Source Oral Pulse Rate Pulse Rate [Apical] 70 66 75 Pulse Rhythm [Apical] Regular Pulse Strength [Apical] Normal Respiratory Rate 20 15 17 Respiratory Effort / Characteristics Non-Labored Spontaneous Non-Labored Spontaneous Non-Labored Spontaneous Respiratory Depth Normal Normal Normal Respiratory Pattern Regular Blood Pressure Blood Pressure [Right Arm] 179/89 H 162/90 H 113/78 Blood Pressure Mean Blood Pressure Mean [Right Arm] 119 114 89 Blood Pressure Position [Right Arm] Semi-fowlers Pulse Oximetry 97 93 98 Oxygen Delivery Method Room Air Room Air Room Air Sepsis Recent Fever Within 48 Hours Sepsis New/Unexplained Change in Mental Status Sepsis Action Taken by Nursing General: Well developed well nourished older female who appears in no acute distress, breathing comfortably on room air. Normal speech HEENT: Normal cephalic atraumatic. Pupils are equal round and reactive to light. Extraocular movements are intact. Oropharynx is pink with moist mucous membranes. No swelling of the mouth lips or tongue. Neck: Supple with a midline trachea. No meningeal signs or stiffness, no JVD or bruits. No Stridor. Chest: Clear to auscultation bilaterally. No wheezes or rhonchi. No increased work of breathing. Heart: Regular rate and rhythm without murmurs or gallops. Abdomen: Soft nontender, nondistended without rebound guarding or rigidity. Extremities: No cyanosis clubbing or edema. No calf tenderness or assymetry Spine/Back. Non tender to palpation. No CVA tenderness Skin: Good turgor without rashes. Neurologic exam: Cranial nerves two through 12 are intact. Motor and sensation are intact and symmetrical throughout. Course Administered Medications Discontinued Medications Sodium Chloride (Nss) 1,000 mls @ 999 mls/hr IV .Q1H1M ONE Stop: 10/19/23 07:37 Last Infusion: 10/19/23 07:43 Dose: Infused Documented By: Admin: 10/19/23 06:41 Dose: 999 mls/hr Documented By: KEDAR Ceftriaxone Sodium (Rocephin) 2,000 mg in 50 mls @ 100 mls/hr IV NOW STA Stop: 10/19/23 08:07 Last Infusion: 10/19/23 08:16 Dose: Infused Documented By: Admin: 10/19/23 07:46 Dose: 100 mls/hr Documented By: LITO Oxycodone HCl (Oxycodone Hcl Ir 5 Mg Tab (Immediate Release)) 5 mg PO NOW STA Stop: 10/19/23 07:29 Last Admin: 10/19/23 07:31 Dose: 5 mg Documented By: LITO Medical Decision Making Differential Diagnosis Kidney stone, kidney infection, electrolyte or metabolic abnormality, dehydration, sepsis, musculoskeletal Medical Records Attestation: I reviewed the patient's medical records. Home Medications Current Medication List: was personally reviewed by me Laboratory Data Attestation: I reviewed the patient's lab results. 10/19/23 06:19 10/19/23 06:19 Lab Results 10/19/23 10/19/23 10/19/23 Range/Units 05:33 06:19 08:00 WBC 5.38 (4.8-10.8) K/ul RBC 4.81 (4.20-5.40) M/uL Hgb 13.8 (12.0-16.0) g/dl Hct 41.3 (37.0-47.0) % MCV 85.9 (80.0-100.0) fL MCH 28.7 (25.0-34.0) pg MCHC 33.4 (32.0-36.0) g/dL RDW Std Deviation 40.7 (36.4-46.3) fL RDW Coeff of [place] 13.1 (11.5-14.5) % Plt Count 265 (130-400) K/uL MPV 8.6 L (9.4-12.4) fL Immature Gran % (Auto) 0.4 % Neut % (Auto) 49.1 % Lymph % (Auto) 35.9 % [place] % (Auto) 10.8 % Eos % (Auto) 3.2 % Baso % (Auto) 0.6 % Neut # (Auto) 2.65 (1.40-6.50) K/uL Lymph # (Auto) 1.93 (1.20-3.40) K/uL [place] # (Auto) 0.58 (0.11-0.59) K/uL Eos # (Auto) 0.17 (0.00-0.50) K/uL Baso # (Auto) 0.03 (0.00-0.20) K/uL Immature Gran # (Auto) 0.02 (0.01-0.20) K/uL Sodium 137 (136-145) mmol/L Potassium 4.3 (3.5-5.1) mmol/L Chloride 103 (98-107) mmol/L Carbon Dioxide 26 (21-32) mmol/L Anion Gap 8 (3-11) BUN 17 (6-23) mg/dl Creatinine 0.88 (0.6-1.2) mg/dl Est Cr Clr Drug Dosing 60.2 ml/min Est GFR ( Amer) 76.1 ml/min Est GFR (Non-Af Amer) 65.6 ml/min BUN/Creatinine Ratio 19.3 (10-20) Glucose 115 H (70-99(Fasting)) mg/dl Calcium 9.3 (8.6-10.3) mg/dl Total Bilirubin 0.6 (0.2-1.0) mg/dl AST 21 (13-39) U/L ALT 20 (7-52) U/L Alkaline Phosphatase 57 (34-104) U/L Troponin I High Sens 3.1 (0-14) pg/ml Total Protein 7.6 (6.0-8.3) gm/dl Albumin 4.4 (3.4-5.0) gm/dl Globulin 3.2 (2.5-4.0) gm/dl Albumin/Globulin Ratio 1.4 (0.9-2) Urine Color Yellow Urine Appearance Clear (Clear) Urine pH 6.0 (4.5-7.5) Ur Specific [place] 1.013 (1.000-1.030) Urine Protein Negative (Negative) Urine Glucose (UA) Negative (Negative) Urine Ketones Negative (Negative) Urine Blood Negative (Negative) Urine Nitrite Negative (Negative) Urine Bilirubin Negative (Negative) Urine Urobilinogen Negative (Negative) Ur Leukocyte Esterase 1+ H (Negative) Urine WBC (Auto) 6-10 H (0-5) /hpf Urine RBC (Auto) 0-2 (0-2) /hpf U Hyaline Cast (Auto) 0-2 (0-2) /lpf U Epithel Cells (Auto) 0-2 (0-2) /hpf Urine Bacteria (Auto) None Seen (None Seen) Imaging Data Attestation: I personally reviewed and interpreted this imaging study as follows: My Impression: CT stone studyI do not see any definite kidney stone Radiologist's Impression: Abdomen/Pelvis CT 10/19/23 06:37 CT abd pelvis wo con CLINICAL HISTORY: rt flank pain, hx of kidney stone, 1 kidney TECHNIQUE: Helical axial images of the abdomen and pelvis were obtained. Automated dose lowering techniques and/or adjustment according to patient size were utilized for this exam. This exam was performed without intravenous contrast. CT DOSE: 1310.76 mGy.cm COMPARISON: Comparison is made to CT abdomen pelvis 06/07/2019 FINDINGS: Lower chest: Bibasilar atelectasis versus scarring is seen. Liver: Unremarkable. No focal lesions are seen. Gallbladder and biliary tree: No calcified gallstones. Normal caliber wall. No intra- or extrahepatic biliary ductal dilation. Pancreas: Unremarkable, no focal lesions. Spleen: Unremarkable. Adrenals: Unremarkable. Kidneys and ureters: Postsurgical changes of left nephrectomy. No right nephrosis or stone. Bladder: Unremarkable. Reproductive organs: Unremarkable. Bowel: Diverticulosis is seen without evidence of diverticulitis. There is a small hiatal hernia. Lymph nodes Retroperitoneal: Unremarkable. Pelvic: Unremarkable. Mesenteric: Unremarkable. Peritoneum: Normal. Vessels: Unremarkable. Abdominal wall: Right fat-containing inguinal hernia. Bones: Degenerative changes in the visualized spine. IMPRESSION: No obstructive stone or hydronephrosis in this patient with right flank pain. No additional abnormalities, in particular the appendix is normal. ACT 112: Negative or not required by law. Electronically signed by: Tae Escalante M.D. 10/19/2023 8:45 AM ECG Data Attestation: I personally reviewed and interpreted this ECG as follows: Indication: + palpitations Rate (beats per minute): 73 Rhythm: + normal sinus ECG Intervals/blocks: + Normal QRS, + Normal QT and + Normal MD ECG [place]: + Normal ECG ST segments: + Normal ST segments ECG Findings: no PACs or no PVCs Comparison ECG Date: from (07/28/2023) Change: the following changes noted (Normal sinus rhythm has replaced bigeminy) MDM Narrative This patient comes in as described above. She was seen in room B10. She is here for treatment evaluation of flank pain this is complicated by the fact that she has 1 kidney and a history of kidney stones. She did not require anything for pain and initially her she has stable vital signs. IV access was established . I did order 1 L IV normal saline . She has no fever or white count suggest infection/sepsis. she has no significant anemia. I did order a CAT scan given the fact that she has 1 kidney. She has no white count or fever to suggest infection/sepsis. She has no significant anemia. She has normal renal function and no significant electrolyte or metabolic abnormalities. She did request some Oxy IR for pain. She has been taking this for her shoulder and she is due for her morning dose we did give it to her with the understanding that she will get somebody else to drive her home she acknowledges this. Her urinalysis does suggest a possible UTI given the fact he has 1 kidney we will put her on antibiotics clinically I do not think she likely has pyelonephritis. She was given Rocephin 2 g IV. CAT scan was obtained and shows no obstructive uropathy. The nurse told me that she got very bradycardic in the 30s and so she put her on the monitor when I go to check her she was in the 70s says she felt fine she does tend to get chest pain and palpitations in the morning she tells me a troponin was obtained also. When I looked on the monitor she was stable in the 70s. Troponin was negative. she is concerned about going home I have discussed case in consultation with Dr. Eaton and he will admit/observe her for further treatment and evaluation Continuous security monitor: Orders placed in EMR for continuous security monitor call upon my evaluation patient reviewed normal sinus rhythm with occasional PVC rate was 70 Impression & Plan Bradycardia, Acute right flank pain, Acute UTI (urinary tract infection), PVCs (premature ventricular contractions) Discharge Plan Visit Data Chief Complaint: Back Injury/Pain Stated Complaint: BACK PAIN, BLEEDING ED Provider: Sebas Cavazos Discharge Problem: Bradycardia, Acute right flank pain, Acute UTI (urinary tract infection), PVCs (premature ventricular contractions) Forms Stand Alone Forms: [facility] [employer] Prescriptions Prescriptions: No Action acetaminophen [Tylenol Extra Strength] 500 mg Tablet 1,000 mg PO BID PRN (Reason: Pain) acetaminophen [Tylenol Arthritis Pain] 650 mg Tablet Extended Release 650 mg PO Q12H PRN (Reason: Pain) Marcela LIZAMA 12.5 mg/mL Solution 0 mg IV UD Rx Instructions: Pt unsure of strength, just got first IV 2 weeks ago. Referrals Referrals: Alex Ansari MD [Primary Care Provider] -
[2023-10-19] MEDS: SODIUM CHLORIDE 0.9% 1,000 ML IV ONE (06:41)
[2023-10-19 06:55] LABS: Albumin Globulin Ratio 1.4 (0.9-2); Albumin Level 4.4 gm/dl (3.4-5.0); BUN Creatinine Ratio 19.3 (10-20); Bilirubin,Total 0.6 mg/dl (0.2-1.0); Calcium 9.3 mg/dl (8.6-10.3); Creatinine Clr Calc Pharmacy 60.2 ml/min; Est GFR (African American) 76.1 ml/min; Est GFR (Non-African American) 65.6 ml/min; Globulin 3.2 gm/dl (2.5-4.0); Potassium 4.3 mmol/L (3.5-5.1); Total Protein 7.6 gm/dl (6.0-8.3)
[2023-10-19] MEDS: oxyCODONE HCL IR 5 MG TAB (IMMEDIATE RELEASE) PO STA (07:31)
[2023-10-19] MEDS: cefTRIAXone SODIUM 2,000 MG/50 ML BAG IV STA (07:46)
--- NOTE | 2023-10-19 08:47 | CT Scan Report ---
CT abd pelvis wo con CLINICAL HISTORY: rt flank pain, hx of kidney stone, 1 kidney TECHNIQUE: Helical axial images of the abdomen and pelvis were obtained. Automated dose lowering tech niques and/or adjustment according to patient size were utilized for this exam. This exam was perfor med without intravenous contrast. CT DOSE: 1310.76 mGy.cm COMPARISON: Comparison is made to CT abdomen pelvis 06/07/2019 FINDINGS: Lower chest: Bibasilar atelectasis versus scarring is seen. Liver: Unremarkable. No focal lesions are seen. Gallbladder and biliary tree: No calcified gallstones. Normal caliber wall. No intra- or extrahepatic biliary ductal dilation. Pancreas: Unremarkable, no focal lesions. Spleen: Unremarkable. Adrenals: Unremarkable. Kidneys and ureters: Postsurgical changes of left nephrectomy. No right nephrosis or stone. Bladder: Unremarkable. Reproductive organs: Unremarkable. Bowel: Diverticulosis is seen without evidence of diverticulitis. There is a small hiatal hernia. Lymph nodes Retroperitoneal: Unremarkable. Pelvic: Unremarkable. Mesenteric: Unremarkable. Peritoneum: Normal. Vessels: Unremarkable. Abdominal wall: Right fat-containing inguinal hernia. Bones: Degenerative changes in the visualized spine. IMPRESSION: No obstructive stone or hydronephrosis in this patient with right flank pain. No additional abnormali ties, in particular the appendix is normal. ACT 112: Negative or not required by law. Electronically signed by: Tea Escalante M.D. 10/19/2023 8:45 AM
--- NOTE | 2023-10-19 10:23 | History & Physical Report ---
Date of Service October 19, 2023 Assessment & Plan (1) Acute UTI (urinary tract infection): Plan: Presented with acute lower back and right flank pain for the last 2 to 3 days Hematuria since last night with frequency UA is not typical for infection but intravenous ceftriaxone was added and will be continued Await urine culture report for final antibiotic Advised to drink more fluid (2) Acute right flank pain: Plan: History of back pain and history of kidney stones Came in with acute back pain and right flank pain without any radiation CT of the abdomen pelvis did not show any ureteric stone/obstruction or any hydronephrosis (3) Bradycardia: Plan: History of PVCs Noted to have bradycardia of around upper 30s in the emergency room before she was put on on heart monitor Got very anxious with a history of anxiety and depression and was admitted to the hospital for observation Echo of the heart which was done on 09/27/2023 showed- Left medical systolic function is normal, there is mild asymmetric left ventricular hypertrophy, grade 1 diastolic dysfunction, borderline left atrial enlargement and there is mild mitral annular calcification She also had had Holter monitor which did not show any significant bradycardia but PVCs Initial troponin negative Will get another set of troponin and monitor her in the medical telemetry unit (4) PVCs (premature ventricular contractions): (5) HTN (hypertension): Plan: Documented in [facility] Does not take any medications If the blood pressure is persistently high will add small dose of Norvasc No beta-manjula given the history of bradycardia arrhythmia (6) Solitary kidney, acquired: Plan: Left kidney is absent No right hydronephrosis or ureteric stone as of CT scan of the abdomen and pelvis DVT prophylaxis Subcu heparin CODE STATUS Full History of Present Illness Chief Complaint: Back and right flank pain for the last 2 days, hematuria since last night and ongoing palpitation with noted bradycardia around 37 in the emergency room this morning Primary Care Provider: Alex Ansari MD She is a 73-year-old female with significant past medical history as mentioned in epic 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 She also complained to have frequency of urination and hematuria noted since last night. Denies any nausea no vomiting, denies any fever and or chills. Urine was sent for culture and she was started on intravenous ceftriaxone. CT scan of the abdomen pelvis did not show any kidney stone and or hydronephrosis. She also has history of palpitation and has had heart monitor placed after her shoulder surgery and also underwent echo of the heart on 10/09/2023 following left shoulder surgery which came out to be unremarkable. She was noted to have a low heart rate of around upper 30s while in the em ergency room but unfortunately no documentation on the monitor noted and the heart rate went up to 70s on monitor in the emergency room. She admits to have palpitation and also complains to have occasional chest tightness specially in the morning but never had any significant chest pain, shortness of breath or dizziness associated with the symptoms. Denies any leg swelling or any significant weight gain. She was admitted to [facility] telemetry unit for observation. Allergies Allergy/AdvReac Type Severity Reaction Status Date / Time No Known Allergies Allergy Unknown Verified 10/19/23 08:09 Home Medications Medication Instructions Recorded Confirmed Type acetaminophen 500 mg tablet 1,000 mg PO BID PRN Pain 03/27/23 10/19/23 History (Tylenol Extra Strength) acetaminophen 650 mg 650 mg PO Q12H PRN Pain 10/19/23 10/19/23 History tablet,extended release (Tylenol Arthritis Pain) golimumab 12.5 mg/mL intravenous 0 mg IV UD 10/19/23 10/19/23 History solution (Simponi ARIA) Past Med/Surg History Problem List HTN (hypertension) Bradycardia (Acute) PVCs (premature ventricular contractions) (Acute) Acute UTI (urinary tract infection) (Acute) Acute right flank pain (Acute) Carpal tunnel syndrome, left Brachial plexopathy Status post reverse total replacement of left shoulder (~07/2023) Encounter for pre-operative examination Rotator cuff arthropathy of left shoulder Glenohumeral arthritis AC joint arthropathy Rotator cuff tear Status post total right knee replacement Renal colic Hydronephrosis, right Right ureteral calculus Kidney stone (Acute) Right knee DJD Sepsis (Acute) Abdominal pain (Acute) Abdominal pain (Acute) Lupus (Chronic) Will be seeing [facility] rheum at the end of June Solitary kidney, acquired (Chronic) s/p nephrectomy - S/P cystoscopy with ureteral stent placement last 12/16/21 @ [facility]: LMA #4. Medical History History of ITP ~2001, lasted for 2 weeks, no current issues History of cardiac arrhythmia Hx bigeminy/ventricular ectopy, unremarkable echo 2019 Hx of renal calculi No recent issues Hx of gastroesophageal reflux (GERD) Well controlled and stable History of anxiety Sleep apnea does not use device Asthma rarely uses inhaler well controlled per patient History of COVID-19 Dx 03/2021, Symptoms at time: cold, fever, cough > resolved 03/2023, pcp test, not hosp; mild symptoms>tx w/paxlovid- no current symptoms Surgical History Hx of tubal ligation Hx of bilateral cataract extraction History of lumbar surgery History of total right knee replacement Hx of arthroscopy of shoulder rt, w/RCT repair History of nephrectomy Due to nonfunctioning - 2021- no current issues with remaining kidney History of esophagogastroduodenoscopy (EGD) Hx of colonoscopy Family History Other No family history of adverse response to anesthesia Social History Smoking Status: Never smoker Second Hand Exposure: No; Do You Dip or Chew Tobacco: No; Hx Alcohol Use: Yes Alcohol type: beer Hx Substance Use: No Preferred Language: Bulgarian Communication Ability: Effective Senior It Specialist Required: No Beliefs That Will Affect Care: None Current Living Situation: Alone Feels Safe at Home: Yes Assistive Devices: Denture - Lower Review of Systems Review of Systems: All systems reviewed and are unremarkable except as noted below Physical Exam Physical Exam: Lying in bed very anxious but no other distress Constitutional: well developed, well nourished, + ill appearing and + obese Eyes: PERRL, conjunctivae normal, anicteric sclerae ENMT: external ear and nose normal, oropharynx normal Neck: trachea midline, no thyromegaly Respiratory: no respiratory distress Auscultation: lungs clear to auscultation bilaterally Cardiovascular: Rate/Rhythm: regular rate and regular rhythm; not tachycardic Heart Sounds: normal S1 and normal S2; no murmur Extremities: no edema Gastrointestinal (Abdomen): Inspection/Auscultation: normal bowel sounds; abdomen not distended Percussion/Palpation: abdomen soft; abdomen nontender Musculoskeletal: No acute arthritis involving any of the joint Neurologic: normal touch/pain/proprioception and moves all extremities; no focal motor deficits Lymphatic: no cervical or axillary lymphadenopathy Results & Data Results & Data Vital Signs (Past 12 Hours) Vital Signs Temp Pulse Pulse Resp BP BP Pulse Ox 10/19/23 08:12 70 20 179/89 H 97 10/19/23 07:55 73 10/19/23 07:50 37 L 10/19/23 05:04 36.8 C 78 166/75 H 96 O2 Del Method 10/19/23 08:12 Room Air 10/19/23 07:55 10/19/23 07:50 10/19/23 05:04 Room Air Laboratory Results Short CBC 10/19/23 Range/Units 06:19 WBC 5.38 (4.8-10.8) K/ul Hgb 13.8 (12.0-16.0) g/dl Hct 41.3 (37.0-47.0) % Plt Count 265 (130-400) K/uL BMP 10/19/23 06:19 Sodium 137 Potassium 4.3 Chloride 103 Carbon Dioxide 26 BUN 17 Creatinine 0.88 Glucose 115 H Calcium 9.3 Liver Function 10/19/23 Range/Units 06:19 Total Bilirubin 0.6 (0.2-1.0) mg/dl AST 21 (13-39) U/L ALT 20 (7-52) U/L Alkaline Phosphatase 57 (34-104) U/L Albumin 4.4 (3.4-5.0) gm/dl Urine 10/19/23 Range/Units 05:33 Urine Color Yellow Urine Appearance Clear (Clear) Urine pH 6.0 (4.5-7.5) Ur Specific [place] 1.013 (1.000-1.030) Urine Protein Negative (Negative) Urine Glucose (UA) Negative (Negative) Medications Administered Current Inpatient Medications Heparin Sodium (Porcine) (Heparin Sod 5,000 Unit/0.5 Ml Vial) 5,000 units SQ Q12 PAMELA Stop: 11/18/23 20:59 Ceftriaxone Sodium (Rocephin) 2,000 mg in 50 mls @ 100 mls/hr IV Q24H PAMELA Stop: 10/24/23 10:14 Code Status & VTE Plan VTE Prophylaxis Plan VTE Prophylaxis will be ordered: Yes
[2023-10-19] MEDS ORDERED: KETOROLAC TROMETHAMINE 15 MG/ML VIAL IV PRN (10:38)
--- OUTSIDE RECORDS SUMMARY | 2023-10-19 13:28 | External Medical Summary | Summary of Care ---
Author Name Unknown Organization [facility] Address [address] [place] [address] Phone [phone] Care Team Providers Care Naturalization Examiner Name Role Phone Alex Ansari MD Primary Care Provider [phone] Reason for Visit * Reason Onset Date Comments Appointment 07/19/2023 Marcela lomas Encounter Details Date Type Department Care Team (Late st Contact Info) Description 07/19/2023 Telephone Hematology Oncology [place] [address] [place], [place] [id number] Linnette Lobo CRNP [address] [place] [address] Appointment (Marcela lomas) Allergies Active Allergy Reactions Criticality Noted Date Comments Environmental 11/12/2007 Mold, mildew, pollen cause itchy eyes, running nose documented as of this encounter (statuses as of 10/18/2023) Medications No known medicationsdocumented as of this encounter (statuses as of 10/18/2023) Active Problems Problem Noted Date Diagnosed Date Hypertensive chronic kidney disease 09/06/2023 Major depressive disorder with single episode, i [...] as of this encounter (statuses as of 10/18/2023) Resolved Problems Problem Noted Date Diagnosed Date Resolved Date Encounter for examination fo r normal comparison and control in clinical research program 08/13/2018 11/18/2019 Overview: DO NOT DELETE [facility] DETECT Study: Project # [id number], Concrete Block Maker: Parveen Zamudio, PhD. SUMMARY: Goal: Establish [...] contact study staff at ; after hours Concrete Block Maker via the [facility] wire wrapper machine operator . Please contact study team before resolving/deleting from patients problem list. Study phone number: [phone]. Diagnosis changed due to Research Module. Go to Snapshot for study details. Encounter for examination fo r normal comparison and control in clinical research program 08/13/2018 12/16/2021 Overview: DO NOT DELETE - [facility] JERRY Study: Project # [id number], Concrete Block Maker: Alberto Choi, MS, MPH. SUMMARY: Goal: [...] contact study staff at ; after hours Concrete Block Maker via the [facility] wire wrapper machine operator . - Please contact study team before resolving/deleting from patients problem list. Study phone number: [phone]. Diagnosis changed due to Research Module. Go [...] update of inactive term [facility] [place] [facility] with negative rheumatoid [...] as of this encounter (statuses as of 10/18/2023) Immunizations Name Administration Dates Next Due COVID-19 mRNA, LNP-s, No Pre serve, 2-Dose Series (Pfizer) 10/14/2020,08/14/2020,07/20/2020 Hepatitis B, 20+ yrs 05/19/2023,03/23/2023 PPD 03/10/2010,10/27/2008 Pneumococcal Conjugate Vacc, 13 Valent (Prevnar) 03/13/2018 Pneumococcal Conjugate Vacci ne, 20-valent ([id number]) 05/19/2023 Pneumococcal Polysaccharide PPV23 (Pneumovax) 03/13/2019,05/02/2012,02/08/2007 Season [...] Preserve, IM 01/19/2017 TD, Preservative Free 03/13/2019 TDAP, Age 7 and older, IM (Adacel) 09/04/2008 09/04/2018 Varicella Zoster Vaccine (Adult) 01/12/2013 [...] the money to buy more. Never true 08/25/19 24 Within the past 12 months, t he food you bought just didn't last and you didn't have money to get more. Never true 08/25/2023 Childcare Answer Date Recorded Do you feel overwhelmed with taking care of a child, family member or friend? No 08/25/2023 Does your family need help f inding childcare? (Household - for ages 0-17 years) Not on file 08/25/2023 Clothing Answer Date Recorded Have you been unable to get clothing when it was really needed? No 08/25/2023 Is your family able to get c lothes or diapers when needed? (Household - for ages 0-17 years) Not on file 08/25/2023 Personal Safety Answer Date Recorded Do you feel unsafe or have concerns for your saf ety? No 08/25/2023 Do you have concerns for you r family's safety? (Household - for ages 0-17 years) Not on file 08/25/2023 Utilities Answer Date Recorded Do you have trouble paying y our heating, water, or electric bill? No 08/25/2023 Is your family able to pay t he heat, water, or electric bill? (Household - for ages 0-17 years) Not on file 08/25/2023 Does your family have access to good internet? (Household - for ages 0-17 years) Not on file 08/25/2023 Employment Status Answer Date Recorded Are you unemployed or without regular income? No 08/25/2023 Does the household have a re lar source of income? (Household - for ages 0-17 years) Not on file 08/25/2023 Social Connections Answer Date Recorded How often do you feel lonely or isolated from th ose around you? Never 08/25/2023 Financial Resource Strain Answer Date R ecorded Do you have any trouble payi ng for your medications, or do you think you might in the future? No 08/25/2023 Does your family have troubl e paying for medicine? (Household - for ages 0-17 years) Not on file 08/25/2023 Transportation Needs Answer Date Record ed READ ONLY Do you have troubl e getting a ride to medical visits or work? Never True 08/25/2023 Does your family have a hard time getting a ride to doctors visits? (Household - for ages 0-17 years) Not on file 08/25/2023 Has lack of transportation k ept you from medical appointments, meetings, work, or from getting things needed for daily living? Check all that apply. (Adult - for ages 18 years and over) Not on file 08/25/2023 Do you (or your family) have trouble finding or paying for a ride (transportation)? (Household - for ages 0-17 years) Not on file 08/25/2023 Housing Stability Answer Date Recorded Do you currently live in a s helter or have no steady place to sleep at night? No 08/25/2023 READ ONLY Do you think you a re at risk of becoming homeless? No 08/25/2023 Does your family worry about paying for your home or becoming homeless? (Household - for ages 0-17 years) Not on file 0 08/25/2023 Are you homeless or worried that you might be in the future? (Adult - for ages 18 years and over) Not on file Are you (or your family) connor eless or worried that you might be in the future? (Household - for ages 0-17 years) Not on file Food Insecurity Answer Date Recorded Do you need food for this week? No 08/25/2023 Are you able to get enough f ood for your family? (Household - for ages 0-17 years) Not on file 08/25/2023 Does your family need food t his week? (Household - for ages 0-17 years) Not on file 08/25/2023 Do you always have enough fo od for your family? (Household - for ages 0-17 years) Not on file 08/25/2023 Sex and Gender Information Value Date Recorded Sex Assigned at Female 09/04/2018 7:04 PM EDT Gender Identity Female 09/04/2018 7:04 PM EDT Sexual Orientation Straight 09/04/2018 7: 04 PM EDT Job Start Date Occupation Industry Not on file Not on file Not on file documented as of this encounter Miscellaneous Notes * Telephone Encounter - Carmela Lara RN - 07/19/2023 1:54 PM EDT There is already an encounter regarding this * Telephone Encounter - Darlene Patterson RN - 07/19/2023 1:04 PM EDT Received orders for Nacny for simponi aria. Auth completed, labs completed, OOP discussed with thepatient. Patient I shaving shoulder surgery July 27 and will need contacted once cleared from a surgical stand point. Darlene Patterson DRILL HAND [facility] [phone] documented in this encounter Plan of Treatment Upcoming Encounters Date Type Department Care Team (Late st Contact Info) Description 11/01/2023 9:00 AM EDT Hem/Onc Treatment Hematology/Oncology Treatment, [place] [address] [place] [phone] Bebe, Chair [address] [place] [address] 11/15/2023 9:30 AM EDT Nurse Only Ancillary Department, [address] [address] Allyssa Nurse [address] [place] [address] 01/15/2024 8:30 AM EDT Office Visit Rheumatology [place] [id number] [facility] [place] [address] Linnette Lobo CRNP [facility] [place], [place] [address] 03/27/2024 12:30 PM EST Nurse Only Ancillary Department, [place] [address] [place] [address] Allyssa Nurse Annual Wellness [address] [place] [address] 05/08/2024 7:40 AM EST Office Visit [facility], [place] [address] [facility] [phone] Maddi Bill [facility]C [address] [facility] [address] Scheduled Procedures Name Priority Associated Diagnoses Date/Ti me COLONOSCOPY FLEXIBLE PROXIMAL DIAGNOSTIC Recall History of colon polyps Health Maintenance Due Date Last Done Comments Cologuard 08/16/1996 Fecal Occult Blood Test 08/16/1996 Sigmoidoscopy 08/16/1996 *BISPHONATE OR OTHER ACCEPTABLE MEDICATION NEEDED FOR OSTEOPOROSIS (REFER TO SMARTSET #1146) 06/10/2020 COVID-19 Vaccine ( season) 2022 10/14/2020, 08/14/2020, 07/20/2020 DXA Scan 06/01/2023 06/01/2021, 05/18, 12/26/2018, Additional history exists Hepatitis B Vaccine (3 of 3 - 19+ 3-dose series) 09/22/2023 05/19/2023, 03/23/2023 GFR 10/27/2023 04/28/2023, 02/15, 05/06/2022, Additional history exists Influenza Vaccine (FLU shot) (#1) 2023 02/23/2023, 02/17/2022, 03/08/2021, Additional history exists Colonoscopy 03/04/2024 03/04/2019, 02/15, 03/03/2014, Additional history exists Colorectal Cancer Screening 03/04/2024 Depression Monitoring 03/23/2024 03/23/2023 Albumin/Creatinine Ratio 04/28/2024 04/28/2023, 04/18 CKD HGB USE SMARTSET 31586 04/28/202404/28, 04/28/2023, 02/24/2023, Additional history exists CKD PHOS USE SMARTSET 31177 04/28/202404/17, 05/06/2022, 12/10/2020 HbA1c 04/28/2024 04/28/2023, 04/18, 08/18/2021, Additional history exists Mammogram 06/13/2024 06/13/2023, 05/19, 06/07/2022, Additional history exists Lipid Panel 11/18/2026 11/18/2021, 03/18, 02/25/2019, Additional history exists DTaP,Tdap,and Td Vaccines (3 - Td or Tdap) 03/13/2029 03/13/2019, 09/04/2008 Zoster Vaccines Completed 09/11/2018, 02/16, 01/12/2013 RETIRED - COLONOSCOPY-EVERY 5 YRS AGES 18-100 Discontinued 03/04/2019, 03/04/2019, 03/03/2014, Additional history exists VITAMIN D LEVEL ONCE IN A LIFETIME-USE SMARTSET# [id number] Completed 02/24/2023, 05/06/2022, 12/10/2020, Additional history exists Pneumococcal Vaccine: 65+ Years Completed 05/19/2023, 03/13/2019, 03/13/2018, Additional history exists HPV (Gardasil) Vaccine Aged Out No lo nger eligible based on patient's age to complete this topic MENINGOCOCCAL (MENACTRA/MENVEO) Aged Out No longer eligible based on patient's age to complete this topic documented as of this encounter Medical Devices Implanted Type Area Nursing Program Coordinator Device Identifier Shelf Expiration Date Model / Serial / Lot Lens Intraoc 19.0 - [id number] Implanted:Qty: 1 on 03/20/2018 by Trent Fermin MD at [facility] Left: Eye [employer] 11/14/2022 [id number] / [id number] Lens Intraoc 17.0 - [id number] - [id number] Implanted:Qty: 1 on 03/27/2018 by Trent Fermin MD at [facility] Right: Eye [employer] 05/17/2022 [id number] / [id number] / [id number] documented as of this encounter Care Teams Naturalization Examiner Relationship Specialty Start Date End Date Alex Ansari MD [address] [facility] [place] [address] PCP - General 01/03/06 documented as of this encounter
[2023-10-19] MEDS: ACETAMINOPHEN 500 MG TAB PO PRN (20:50)
[2023-10-19] MEDS ORDERED: oxyCODONE HCL IR 5 MG TAB (IMMEDIATE RELEASE) PO PRN (21:37)
[2023-10-19] MEDS: HEPARIN SOD 5,000 UNIT/0.5 ML VIAL SQ SCH (21:37)
[2023-10-19] MEDS: NITROGLYCERIN SL 0.4 MG/TAB TAB SL STA (21:46)
--- NOTE | 2023-10-19 22:28 | Communication Note ---
Date of Service: October 19, 2023 Patient with chest pain relieved by nitroglycerin as per RN. EKG as per my interpretation rate 70, NSR, normal axis, no ischemia Check troponin x 2
[2023-10-19 23:28] LABS: Partial Thromboplastin Ratio 0.9; Partial Thromboplastin Time 25 Seconds (21-31)
[2023-10-20 03:09] LABS: Hematocrit (blood only) 38.3 % (37.0-47.0); Hemoglobin 12.7 g/dl (12.0-16.0); Mean Corpuscular Volume 86.8 fL (80.0-100.0); Red Blood Count 4.41 M/uL (4.20-5.40); White Blood Count 5.25 K/ul (4.8-10.8)
[2023-10-20 03:10] LABS: Basophils # (auto) 0.04 K/uL (0.00-0.20); Basophils % (auto) 0.8 %; Eosinophils # (auto) 0.18 K/uL (0.00-0.50); Eosinophils % (auto) 3.4 %; Immature Granulocytes # (auto) 0.01 K/uL (0.01-0.20); Immature Granulocytes % (auto) 0.2 %; Lymphocytes # (auto) 2.23 K/uL (1.20-3.40); Lymphocytes % (auto) 42.5 %; Mean Corpuscular Hemoglobin 28.8 pg (25.0-34.0); Mean Corpuscular Hgb Conc 33.2 g/dL (32.0-36.0); Mean Platelet Volume 8.7 fL (9.4-12.4); Monocytes # (auto) 0.51 K/uL (0.11-0.59); Monocytes % (auto) 9.7 %; Neutrophils # (auto) 2.28 K/uL (1.40-6.50); Neutrophils % (auto) 43.4 %; Platelet Count 233 K/uL (130-400); RDW Coefficient of Variation 13.2 % (11.5-14.5); RDW Standard Deviation 41.5 fL (36.4-46.3)
[2023-10-20 03:28] LABS: BUN Creatinine Ratio 21.6 (10-20); Calcium 9.3 mg/dl (8.6-10.3); Creatinine Clr Calc Pharmacy 54.9 ml/min; Est GFR (African American) 67.6 ml/min; Est GFR (Non-African American) 58.3 ml/min; Potassium 4.4 mmol/L (3.5-5.1)
[2023-10-20 03:36] LABS: Troponin I High Sensitivity 2.9 pg/ml (0-14)
[2023-10-20 07:33] VITALS: PULSE 68; RESP 18; TEMP 97.9; O2SAT 95
[2023-10-20] MEDS: cefTRIAXone SODIUM 2,000 MG/50 ML BAG IV SCH (08:39)
[2023-10-20 10:20] VITALS: BP 148/87
--- NOTE | 2023-10-20 12:31 | Discharge Summary ---
Discharge Summary Date of Service October 20, 2023 Principal Dx & Hospital Course #1 = Principal Diagnosis (1) Acute right flank pain: (2) Solitary kidney, acquired: (3) Bradycardia: (4) PVCs (premature ventricular contractions): (5) HTN (hypertension): Plan Ms Bear is a 73-year-old female with significant past medical history as mentioned seronegative RA, history of ITP, GERD, absence of left kidney, ZARI, , major depressive disorder, adjustment disorder with anxious mood, hypertension and also hypertensive chronic kidney disease III apparently admitted for evaluation of back pain and right flank pain for the last 2 to 3 days. Patient with concerns of chest pain, but when discussed further its intermittent "fluttering" she has experienced for years. 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 Discussed troponins remained negative and EKG consistent with PVCs CT without signs of stones or acute process. UA with wbc, but no bacteria or signs of hematuria. On day of discharge, symptoms resolved. She denies any concerns and discussion for follow up was had. #Acute right flank pain History of back pain and history of kidney stones CT with no concerning findings consistent with reported hematuria/pain UA without RBCs Reassurance: discussed continued urology and nephrology follow up #Right solitary kidney Left kidney is absent No right hydronephrosis or ureteric stone as of CT scan of the abdomen and pelvis Cr stable #PVCs Noted to have bradycardia of around upper 30s in the emergency room before she was put on on heart monitor; no other episodes recorded on telemetry Got very anxious with a history of anxiety and depression and was admitted to the hospital for observation Echo of the heart which was done on 09/27/2023 showed- Left medical systolic function is normal, there is mild asymmetric left ventricular hypertrophy, grade 1 diastolic dysfunction, borderline left atrial enlargement and there is mild mitral annular calcification She also had had Holter monitor which did not show any significant bradycardia but PVCs Troponins remained negative OP follow up #HTN no on any medications, OP follow up in 1 week and discuss further management Notes For Next Care Provider Medication Changes From Visit None Admission HPI Per Admitting Provider She is a 73-year-old female with significant past medical history as mentioned in epic 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 She also complained to have frequency of urination and hematuria noted since last night. Denies any nausea no vomiting, denies any fever and or chills. Urine was sent for culture and she was started on intravenous ceftriaxone. CT scan of the abdomen pelvis did not show any kidney stone and or hydronephrosis. She also has history of palpitation and has had heart monitor placed after her shoulder surgery and also underwent echo of the heart on 10/09/2023 following left shoulder surgery which came out to be unremarkable. She was noted to have a low heart rate of around upper 30s while in the emergency room but unfortunately no documentation on the monitor noted and the heart rate went up to 70s on monitor in the emergency room. She admits to have palpitation and also complains to have occasional chest tightness specially in the morning but never had any significant chest pain, shortness of breath or dizziness associated with the symptoms. Denies any leg swelling or any significant weight gain. She was admitted to [facility] telemetry unit for observation. Admission Exam Per Admitting Provider Lying in bed very anxious but no other distress Constitutional: well developed, well nourished, + ill appearing and + obese Eyes: PERRL, conjunctivae normal, anicteric sclerae ENMT: external ear and nose normal, oropharynx normal Neck: trachea midline, no thyromegaly Respiratory: no respiratory distress Auscultation: lungs clear to auscultation bilaterally Cardiovascular: Rate/Rhythm: regular rate and regular rhythm; not tachycardic Heart Sounds: normal S1 and normal S2; no murmur Extremities: no edema Gastrointestinal (Abdomen): Inspection/Auscultation: normal bowel sounds; abdomen not distended Percussion/Palpation: abdomen soft; abdomen nontender Musculoskeletal: No acute arthritis involving any of the joint Neurologic: normal touch/pain/proprioception and moves all extremities; no focal motor deficits Lymphatic: no cervical or axillary lymphadenopathy Discharge Exam Constitutional WD/WN, vitals as above Respiratory normal respiratory effort, lungs clear to auscultation Cardiovascular RRR, no murmur, no edema Musculoskeletal no cyanosis or clubbing, extremities motor strength 5/5 Updated Medication List Medication Instructions Recorded Confirmed Type acetaminophen 500 mg tablet 1,000 mg PO BID PRN Pain 03/27/23 10/19/23 History (Tylenol Extra Strength) acetaminophen 650 mg 650 mg PO Q12H PRN Pain 10/19/23 10/19/23 History tablet,extended release (Tylenol Arthritis Pain) golimumab 12.5 mg/mL intravenous 0 mg IV UD 10/19/23 10/19/23 History solution (Simponi ARIA) Hospital Stay Data Consultations 10/19/23 09:26 ED Decision to Admit Stat Diagnostic Imagining Performed 10/19/23 06:37 CT stones [CT abd pelvis wo con] Stat Pending Results Patient Have Any Pending Studies at Discharge: No Discharge Instructions Given to Patient (Per Discharging Provider) You were admitted for concerns of flank pain and hematuria. There was no sign of infection and no red blood cells in your urine. Imaging did not reveal any stones. It is recommended you follow up with your Urologist and keep your follow up with your Process Assistant. You reported concerns of palpitations. It is recommended you follow up with your PCP and consider reestablishing with your Environmental Service Aide. There were no signs of any acute issues and our monitors did not reveal any concerning rhythms. Total Time Total Time Spent Total Time Spent (In Minutes): 45
--- NOTE | 2023-10-20 22:13 | Electrocardiogram Report ---
Test Reason : Blood Pressure : / mmHG Vent. Rate : 070 BPM Atrial Rate : 070 BPM P-R Int : 202 ms QRS Dur : 082 ms QT Int : 394 ms P-R-T Axes : 039 040 056 degrees QTc Int : 425 ms Normal sinus rhythm Normal ECG When compared with ECG of 19-Oct-2023 07:53, No significant change Confirmed by Kayode Jerry ([id number]) on 10/20/2023 10:12:34 PM Referred By: REFERRED SELF Confirmed By:Kayode Jerry
--- NOTE | 2023-10-20 22:44 | Electrocardiogram Report ---
Test Reason : Blood Pressure : / mmHG Vent. Rate : 070 BPM Atrial Rate : 070 BPM P-R Int : 188 ms QRS Dur : 076 ms QT Int : 394 ms P-R-T Axes : 042 041 029 degrees QTc Int : 425 ms Normal sinus rhythm Low voltage QRS Borderline ECG When compared with ECG of 19-OCT-2023 07:54, No significant change was found Confirmed by Kayode Jerry ([id number]) on 10/20/2023 10:44:29 PM Referred By: REFERRED SELF Confirmed By:Kayode Jerry
--- NOTE | 2023-10-20 23:02 | Electrocardiogram Report ---
Test Reason : Blood Pressure : / mmHG Vent. Rate : 076 BPM Atrial Rate : 076 BPM P-R Int : 172 ms QRS Dur : 068 ms QT Int : 364 ms P-R-T Axes : 050 048 050 degrees QTc Int : 409 ms Poor data quality, interpretation may be adversely affected Sinus rhythm with frequent Premature ventricular complexes in a pattern of bigeminy Low voltage QRS Borderline ECG When compared with ECG of 19-OCT-2023 22:09, Premature ventricular complexes are now Present Confirmed by Kayode Jerry ([id number]) on 10/20/2023 11:02:30 PM Referred By: REFERRED SELF Confirmed By:Kayode Jerry
== END 2023-10-20 10:34 | disposition home or self-care (01) ==
LOC: 2W 05:01 → ED 05:01 → SUATTDRO 10:00 → 2W 12:46